=== PATIENT | female | born 1980 | race Caucasian/White ===

== ENCOUNTER 2023-05-18 07:56 | Outpatient (OUT) | payer OTHER, SELFPAY ==
--- NOTE | 2023-05-18 07:59 | MM_ITS ---
Patient: KIMBERLY MARY Exam Date: 05/18/2023 : 1980 Gender:F Ordering : DR Eric Navarrete . Admission #: [id number] Family : Non-Staff Physician Order #: [id number] CLICK HERE TO VIEW EXAM RADIOLOGY REPORT PROCEDURE: MM TOMOSYNTHESIS SCREENING BI COMPARISON: MG MAMM SCREEN 3D [place] CAD, 05/12/2022. MG MAMM SCREEN 3D [place] CAD, 05/08/2021. INDICATIONS: Screening Calculator Name NCI Breast Cancer Risk Assessment Tool 5 Year Breast Cancer Risk 0.90% Lifetime Breast Cancer Risk 13.40% Personal Breast Cancer No Personal Ovarian Cancer No Treatments None Family Cancers Uncle-maternal with colon cancer at age ~60; Aunt-maternal with breast cancer at age ~60; Mother with thyroid cancer at age 64. LOCATION: [facility] BREAST COMPOSITION: Scattered areas fibroglandular density. FINDINGS: DIAGNOSTIC CATEGORY 2--BENIGN FINDING: RIGHT BREAST: No significant suspicious finding. Scattered benign-appearing calcifications are present. No significant change has occurred. LEFT BREAST: No significant suspicious finding. Scattered benign-appearing calcifications are present. No significant change has occurred. RECOMMENDATIONS: ROUTINE MAMMOGRAM AND CLINICAL EVALUATION IN 12 MONTHS. PLEASE NOTE: A NORMAL MAMMOGRAM DOES NOT EXCLUDE THE POSSIBILITY OF BREAST CANCER. A CLINICALLY SUSPICIOUS PALPABLE LUMP SHOULD BE BIOPSIED. Dictated by: Jez Jacobson M.D. on 05/19/2023 at 13:51 Approved by: Jez Jacobson M.D. on 05/19/2023 at 13:56
== END 2023-05-18 07:57 | disposition home or self-care (01) ==
LOC: MAMMO 07:56
PROVIDERS: Visit Provider Obstetrics & Gynecology
DX: Z12.31 Encounter for screening mammogram for malignant neoplasm of breast (principal); Z80.3 Family history of malignant neoplasm of breast; Z80.0 Family history of malignant neoplasm of digestive organs; Z80.8 Family history of malignant neoplasm of other organs or systems
CPT/HCPCS: 77063; 77067

== ENCOUNTER 2023-08-08 20:29 | Outpatient (REF) | payer OTHER, SELFPAY ==
[2023-08-13 08:11] LABS: Age Gdln ACOG Testing Note (.); HPV Aptima Negative (Negative); IGP, Aptima HPV, rfx 16/18,45 Note (.)
== END 2023-08-08 20:30 | disposition home or self-care (01) ==
LOC: LAB 20:29
PROVIDERS: Visit Provider Obstetrics & Gynecology
DX: Z01.419 Encounter for gynecological examination (general) (routine) without abnormal findings (principal)
CPT/HCPCS: 87624; G0145

== ENCOUNTER 2024-05-21 09:50 | Outpatient (OUT) | payer OTHER, SELFPAY ==
--- NOTE | 2024-05-21 09:54 | MM_ITS ---
Patient Name: KIMBERLY MARY MR#: [id number] : 1980 Exam Date: 05/21/2024 Ordering Doctor: DR Eric Navarrete . RADIOLOGY REPORT PROCEDURE: MM TOMOSYNTHESIS SCREENING BI COMPARISON: MG MAMM SCREEN 3D [place] CAD, 05/12/2022. MM TOMOSYNTHESIS SCREENING BI, 05/18/2023. INDICATIONS: Screening Calculator Name NCI Breast Cancer Risk Assessment Tool 5 Year Breast Cancer Risk 1.00% Lifetime Breast Cancer Risk 13.20% Personal Breast Cancer No Personal Ovarian Cancer No Treatments None Family Cancers Uncle-maternal with colon cancer at age ~60; Aunt-maternal with breast cancer at age ~60; Mother with thyroid cancer at age 64. LOCATION: [facility] BREAST COMPOSITION: There are scattered areas of fibroglandular density. FINDINGS: DIAGNOSTIC CATEGORY 2--BENIGN FINDING. NO CHANGE FROM COMPARISON. Scattered benign-appearing lymph nodes are present. RIGHT BREAST: No significant suspicious finding. LEFT BREAST: No significant suspicious finding. RECOMMENDATIONS: ROUTINE MAMMOGRAM AND CLINICAL EVALUATION IN 12 MONTHS. PLEASE NOTE: A NORMAL MAMMOGRAM DOES NOT EXCLUDE THE POSSIBILITY OF BREAST CANCER. A CLINICALLY SUSPICIOUS PALPABLE LUMP SHOULD BE BIOPSIED. Dictated by: Daren Jean MD on 05/21/2024 at 11:53 Approved by: Daren Jean MD on 05/21/2024 at 11:54
== END 2024-05-21 09:51 | disposition home or self-care (01) ==
LOC: MAMMO 09:50
PROVIDERS: Visit Provider Obstetrics & Gynecology
DX: Z12.31 Encounter for screening mammogram for malignant neoplasm of breast (principal); Z80.3 Family history of malignant neoplasm of breast; Z80.0 Family history of malignant neoplasm of digestive organs; Z80.8 Family history of malignant neoplasm of other organs or systems
CPT/HCPCS: 77063; 77067

== ENCOUNTER 2024-08-13 22:00 | Outpatient (REF) | payer OTHER, SELFPAY ==
--- OUTSIDE RECORDS SUMMARY | 2024-08-13 22:05 | XMS_ITS | CCD ---
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 Role Phone Rober Goode Attending Provider Rober Juares Primary Care Provider ROSALBA, DR GANDHI Admitting Unavailable ROSALBA, DR GANDHI Attending Unavailable ROSALBA, DR GANDHI Consulting Unavailable REQUEST, DR FROST LISTED Primary Care Unavaila ble ZIEBER, DR JEZ Esqueda Consulting Unavailable ROSALBA, DR GADNHI Attending Unavailable ROSALBA, DR GANDHI Consulting Unavailable ROSALBA, DR GANDHI Admitting Unavailable REQUEST, NONE LISTED Primary Care Unavaila ble ROSALBA, DR GANDHI Attending Unavailable ROSALBA, DR GANDHI Admitting Unavailable REQUEST, DR FROST LISTED Primary Care Unavaila ble ZIEBER, DR JEZ Esqueda Consulting Unavailable DefRober harris MD Primary Care Provider [phone] GENARO BUI Referring Unavailable DEFRANCE, ROBER Gilman Primary Care Unavailable GENARO BUI Attending Unavailable ROBER JUARES Referring Unavailable DEFRANCE, ROBER Gilman Primary Care Unavailable GENARO BUI Referring Unavailable DEFRANCE, ROBER Gilman Primary Care Unavailable BUIGENARO Referring Unavailable DEFRANCE, ROBER Gilman Primary Care Unavailable CIRA VILLEGAS Attending Unavailable GENARO BUI Referring Unavailable DEFRANCE, ROBER Gilman Primary Care Unavailable ASHVIN SANTANA Admitting Unavailable ASHVIN SANTANA Attending Unavailable GENARO BUI Referring Unavailable DEFRANCE, ROBER Gilman Primary Care Unavailable ASHVIN SANTANA Attending Unavailable ASHVIN SANTANA Referring Unavailable DEFRANCE, ROBER Gilman Primary Care Unavailable CIRA VILLEGAS Attending Unavailable ROBER JUARES Referring Unavailable DEFRANCE, ROBER Gilman Primary Care Unavailable ASHVIN SANTANA Admitting Unavailable ASHVIN SANTANA Attending Unavailable ROBER JUARES Referring Unavailable DEFRANCE, ROBER Gilman Primary Care Unavailable ASHVIN SANTANA Attending Unavailable ASHVIN SANTANA Referring Unavailable DEFRANCE, ROBER Gilman Primary Care Unavailable NICIRA VASQUEZ Attending Unavailable DEFRANCE, ROBER T Referring Unavailable DEFRANCE, ROBER T Primary Care Unavailable NIENBERG, CIRA S Attending Unavailable NIENBERG, CIRA S Referring Unavailable DEFRANCE, ROBER T Primary Care Unavailable DEFRANCE, ROBER T Primary Care Unavailable CHERI, VEGA Cabrera Attending Unavailable CHERI, VEGA Cabrera Attending Unavailable CHERI, VEGA L Referring Unavailable DEFRANCE, ROBER T Primary Care Unavailable DEFRANCE, ROBER T Primary Care Unavailable ALEX KHAN Attending Unavailable BILL, ALEX Esqueda Attending Unavailable BILL, ALEX Esqueda Referring Unavailable DEFRANCE, ROBER T Primary Care Unavailable GENARO BUI Referring Unavailable DEFRANCE, ROBER T Primary Care Unavailable BUIGENARO Referring Unavailable DEFRANCE, ROBER T Primary Care Unavailable BUI GENARO Referring Unavailable DEFRANCE, ROBER T Primary Care Unavailable SCHRINELANTOINETTE Attending Unavailabl e DEFRANCE, ROBER Gilman Referring Unavailable DEFRANCE, ROBER Gilman Primary Care Unavailable DEFRANCE, ROBER Gilman Attending Unavailable DEFRANCE, ROBER T Referring Unavailable DEFRANCE, ROBER T Primary Care Unavailable DEFRANCE, ROBER Gilman Attending Unavailable DEFRANCE, ROBER T Referring Unavailable DEFRANCE, ROBER T Primary Care Unavailable SCHRINEANTOINETTE Cabrera Attending Unavailabl e DEFRANCE, ROBER Gilman Referring Unavailable DEFRANCE, ROBER Gilman Primary Care Unavailable DEFRANCE, ROBER Gliman Attending Unavailable DEFRANCE, ROBER Gilman Referring Unavailable DEFRANCE, ROBER T Primary Care Unavailable SCHANTOINETTE HAHN Attending Unavailabl e DEFRANCE, ROBER Gilman Referring Unavailable DEFRANCE, ROBER Gilman Primary Care Unavailable SCHANTOINETTE HAHN Referring Unavailabl e DEFRANCE, ROBER Gilman Primary Care Unavailable Defrance Rober WRAY Primary Care Provider Unavailable Unavailable Unavailable Allergies Allergy Classification Reported Allergen(s) Allergy Type Date of Onset Reaction(s) Facility (2 sources) Ciprofloxacin; Translations: [CIPROFLOXACIN] Drug Allergy 05-24-2024 [facility] (2 sources) metroNIDAZOLE; Translations: [METRONIDAZOLE] Drug Allergy 05-24-2024 [facility] Medications Current Medications Medication Drug Class(es) Dates Sig (Normalized) Sig (Original) cyclobenzaprine hydrochloride 10 mg oral tablet (4 sources) Muscle Relaxant Start: 11-09-2023 take 1 tablet by mouth every eight hours as needed cyclobenzaprine (FLEXERIL) 10 mg tablet Take 1 tablet (10 mg total) by mouth every 8 (eight) hours as needed for muscle spasms. 45 tablet 3 11/09/2023 Active esomeprazole 20 mg delayed release oral capsule (6 sources) Proton Pump Inhibitor Start: 12-02-2023 take 1 capsule by mouth in the morning, then take 1 capsule by mouth before mealtime esomeprazole (NexIUM) 20 mg capsule Indications: Gastroesophageal reflux disease without esophagitis Take 1 capsule (20 mg total) by mouth in the morning and 1 capsule (20 mg total) in the evening. Take before meals. 60 capsule 1 12/02/2023 Active Start: 08-25-2023 End: 12-02-2023 take 1 capsule by mouth in the morning, then take 1 capsule by mouth before mealtime esomeprazole (NexIUM) 40 mg capsule Indications: Gastroesophageal reflux disease without esophagitis Take 1 capsule (40 mg total) by mouth in the morning and 1 capsule (40 mg total) in the evening. Take before meals. 60 capsule 3 08/25/2023 12/02/2023 Discontinued famotidine 20 mg oral tablet (4 sources) Histamine-2 Receptor Antagonist Start: 10-29-2020 take 1 tablet by mouth twice daily famotidine (PEPCID) 20 mg tablet Take 1 tablet (20 mg total) by mouth 2 (two) times a day. 60 tablet 1 10/29/2020 Active fluticasone propionate 0.05 mg/actuat metered dose nasal spray (4 sources) Corticosteroid Start: 10-16-2019 take 1 spray(s) nasal route twice daily fluticasone propionate (FLONASE) 50 mcg/actuation nasal spray Administer 1 spray into each nostril 2 (two) times a day. 15.8 mL 5 10/16/2019 Active levonorgestrel 0.156191 mg/hr intrauterine system (5 sources) Progestin, Progestin-containing Intrauterine Device Levonorgestrel 20 MCG/DAY intrauterine device 1 each by Intrauterine route. Active levonorgestreL ( MIRENA) 20 mcg/24 hours (7 yrs) 52 mg IUD 1 each by intrauterine route once. 0 Active Problems Active Problems Problem Classification Problem Date Documented Date Episodic/Chronic Abdominal pain (3 sources) Abdominal pain; Translations: [Unspecified abdominal pain] Onset: 11-06-2023 Episodic Diverticulosis and diverticulitis (2 sources) Diverticulitis of large intestine without perforation or abscess without bleeding; Translations: [Diverticulitis of intestine, part unspecified, without perforation or abscess without bleeding] Onset: 05-14-2024 Chronic Esophageal disorders (7 sources) Gastroesophageal reflux disease without esophagitis; Translations: [Gastro-esophageal reflux disease without esophagitis] Onset: 11-11-2022 11-11-2022 Chronic Menstrual disorders (4 sources) Irregular menstruation, unspecified; Translations: [IRREGULAR MENSTRUATION UNSPECIFIED] Onset: 09-22-2022 Chronic Other acquired deformities (1 source) Scoliosis, unspecified; Translations: [Scoliosis, unspecified] Onset: 12-13-2023 Chronic Other connective tissue disease (1 source) Pain in left foot; Translations: [Pain in left foot] Onset: 05-01-2024 Episodic Other nervous system disorders (1 source) Other chronic pain; Translations: [Other chronic pain] Onset: 12-09-2023 Chronic Other non-traumatic joint disorders (1 source) Bone spur of vertebra; Translations: [Osteophyte, vertebrae] 01-09-2024 Chronic Other non-traumatic joint disorders (1 source) Osteophyte, vertebrae; Translations: [Osteophyte, vertebrae] Onset: 01-18-2024 Chronic Spondylosis; intervertebral disc disorders; other back problems (4 sources) Degeneration of thoracic intervertebral disc; Translations: [Other intervertebral disc degeneration, thoracic region] Onset: 01-18-2024 01-09-2024 Chronic Unclassified (1 source) Consult Onset: 12-13-2023 Unclassified (1 source) Earache Onset: 03-28-2024 Past or Other Problems Problem Classification Problem Date Documented Date Episodic/Chronic Immunizations and screening for infectious disease (1 source) Encounter for screening for human papillomavirus (HPV); Translations: [ENC SCREENING HUMAN PAPILLOMAVIRUS] Onset: 05-20-2022 Episodic Mood disorders (4 sources) Mood disorders Onset: 11-09-2023 11-09-2023 Other lower respiratory disease (1 source) Cough Onset: 03-28-2024 Episodic Other screening for suspected conditions (not mental disorders or infectious disease) (8 sources) Encounter for screening for malignant neoplasm of cervix; Translations: [Encounter for screening mammogram for malignant neoplasm of breast] Onset: 05-12-2022 Episodic Otitis media and related conditions (1 source) Acute serous otitis media, right ear; Translations: [Acute serous otitis media, right ear] Onset: 03-28-2024 Episodic Residual codes; unclassified (1 source) Family history of malignant neoplasm of breast; Translations: [FAMILY HX MALIG NEOPLASM OF BREAST] Onset: 05-16-2022 Episodic Residual codes; unclassified (1 source) Family history of malignant neoplasm of digestive organs; Translations: [FAM HX MALABIGAIL NEOPLASM DIGESTIV ORGN] Onset: 05-16-2022 Episodic Residual codes; unclassified (1 source) Family history of malignant neoplasm of other organs or systems; Translations: [FAM HX MALABIGAIL NEOPLASM OTH ORGN/SYS] Onset: 05-16-2022 Episodic Spondylosis; intervertebral disc disorders; other back problems (13 sources) Thoracic back pain; Translations: [Pain in thoracic spine] Onset: 11-09-2023 11-09-2023 Episodic Unclassified (4 sources) Onset: 02-06-2019 02-06-2019 Results Test Name Value Interpretation Reference Range Facil ity MAGNESIUMon 06-27-2024 Magnesium [Mass/Vol] 1.9 mg/dL Normal 1.8-2.6 [facility] Comment on above: Performed By: #### 1 9123-9, 9, 66881-6 #### [facility] ([id number]) [address], [address] [place] [address] VITAMIN B12on 06-27-2024 Cobalamin (Vitamin B12) [Mass/Vol] 292 pg/mL Normal 180-914 [facility] Comment on above: Performed By: #### 1 9123-9, 9, 38536-4 #### [facility] ([id number]) [address], [address] [place] [address] Vitamin D+Metabolites [Mass/ Vol]on 06-27-2024 VITAMIN D 25 HYD TOT 25.1 ng/mL Low 30-100 [facility] Comment on above: Result Comment: Vitamin D status 25 [place] Vitamin D Deficiency <20 ng/mL Insufficiency 20-29 ng/mL Sufficiency 30-100 ng/mL Toxicity >100 ng/mL NOTE: A pediatric reference range has not been established by the mixed animal veterinarian of this kit. The [place] [employer] recommends a Vitamin D level of = or >20ng/mL in infants and children. Performed By: #### 1 9123-9, 2132-9, 41595-0 #### [facility] ([id number]) [address] [place] [address], [address] [place] [address] BASIC METABOLIC PANLon 05-14 Anion gap [Moles/Vol] 6 mmol/L Normal 5-15 [facility] Comment on above: Performed By: #### C LISA, BMP #### ([id number]) [address] [place] [address]77 Calcium [Mass/Vol] 8.6 mg/dL Normal 8.5-10.5 [facility] Comment on above: Performed By: #### C LISA, BMP #### ([id number]) [address] [place] [address] 09928 Chloride [Moles/Vol] 102 mmol/L Normal 98-109 [facility] Comment on above: Performed By: #### C LISA, BMP #### ([id number]) [address] [place] [address] 91713 CO2 [Moles/Vol] 25 mmol/L Normal 22-32 [facility] Comment on above: Performed By: #### C BCA, BMP #### ([id number]) [address] [place] [address] 53675 Creatinine [Mass/Vol] 0.65 mg/dL Normal 0.40-1.00 [facility] Comment on above: Result Comment: METH OD TRACEABLE TO IDMS STANDARD Performed By: #### C BCA, BMP #### ([id number]) [address] [place] [address]26 eGFR (CKD-EPI) NON-RACE DEPENDENT >90 Normal >59 [facility] Comment on above: Result Comment: Reported eGFR is based on the CKD-EPI 2020 equation that does not use a race coefficient. Performed By: #### C LISA, BMP #### ([id number]) [address] [place] [address]1549 Glucose [Mass/Vol] 74 mg/dL Normal 65-99 [facility] Comment on above: Performed By: #### C LISA, BMP #### ([id number]) [address] [place] [address] 80167 Potassium [Moles/Vol] 3.4 mmol/L Low 3.5-5.0 [facility] Comment on above: Performed By: #### C LISA, BMP #### ([id number]) [address] [place] [address] 27037 Sodium [Moles/Vol] 133 mmol/L Low 134-146 [facility] Comment on above: Performed By: #### C LISA, BMP #### ([id number]) [address] [place] [address] 52064 Urea nitrogen [Mass/Vol] 10 mg/dL Normal 5-23 [facility] Comment on above: Performed By: #### C LISA, BMP #### ([id number]) [address] [place] [address] 88391 CBC AND AUTO DIFFon 05-14-20 24 ABSOLUTE BASOPHIL 0.1 X10E9/L Normal 0.0-0.2 [facility] Comment on above: Performed By: #### C BCA, BMP #### ([id number]) [address] [place] [address] 15300 ABSOLUTE NEUTROPHIL 10.2 X10E9/L High 1.5-6.6 [facility] Comment on above: Performed By: #### C BCA, BMP #### ([id number]) [address] [place] [address] 57188 Basophils/100 WBC (Bld) 0.5 % Normal [facility] Comment on above: Performed By: #### C BCA, BMP #### ([id number]) [address] [place] [address] 82934 Eosinophils (Bld) [#/Vol] 0.1 10*3/uL Normal 0.0-0.4 [facility] Comment on above: Performed By: #### C BCA, BMP #### ([id number]) [address] [place] [address] 03947 Eosinophils/100 WBC (Bld) 0.6 % Normal [facility] Comment on above: Performed By: #### C BCA, BMP #### ([id number]) [address] [place] [address] [place] [address] Erythrocyte distribution width (RBC) [Ratio] 13.3 % Normal 11.5-15.0 [facility] Comment on above: Performed By: #### C BCA, BMP #### ([id number]) [address] [place] [address] 54132 Hematocrit (Bld) [Volume fraction] 40.2 % Normal 35-47 [facility] Comment on above: Performed By: #### C BCA, BMP #### ([id number]) [address] [place] [address] 62518 Hemoglobin (Bld) [Mass/Vol] 13.2 g/dL Normal 11.7-15.5 [facility] Comment on above: Performed By: #### C BCA, BMP #### ([id number]) [address] [place] [address] 12452 Lymphocytes (Bld) [#/Vol] 1.3 10*3/uL Normal 1.0-3.5 [facility] Comment on above: Performed By: #### C LISA, BMP #### ([id number]) [address] [place] [address] 40638 Lymphocytes/100 WBC (Bld) 10.6 % Normal [facility] Comment on above: Performed By: #### C LISA, BMP #### ([id number]) [address] [place] [address] 38769 MCH (RBC) [Entitic mass] 30.0 pg Normal 27-34 [facility] Comment on above: Performed By: #### C LISA, BMP #### ([id number]) [address] [place] [address] 43764 MCHC (RBC) [Mass/Vol] 32.9 g/dL Normal 32-36 [facility] Comment on above: Performed By: #### C LISA, BMP #### ([id number]) [address] [place] [address] 02980 MCV (RBC) [Entitic vol] 91 fL Normal 80-100 [facility] Comment on above: Performed By: #### C LISA, BMP #### ([id number]) [address] [place] [address] 99925 Monocytes (Bld) [#/Vol] 1.0 10*3/uL High 0-0.9 [facility] Comment on above: Performed By: #### C LISA, BMP #### ([id number]) [address] [place] [address] 66340 Monocytes/100 WBC (Bld) 7.8 % Normal [facility] Comment on above: Performed By: #### C LISA, BMP #### ([id number]) [address] [place] [address] 77163 Neutrophils/100 WBC (Bld) 80.5 % Normal [facility] Comment on above: Performed By: #### Khadijah GONZALEZ, BMP #### ([id number]) [address] [place] [address] 14858 Platelet mean volume (Bld) [Entitic vol] 9.1 fL Normal 7-12 [facility] Comment on above: Performed By: #### Khadijah GONZALEZ, BMP #### ([id number]) [address] [place] [address] 35901 Platelets (Bld) [#/Vol] 278 10*3/uL Normal 150-450 [facility] Comment on above: Performed By: #### Khadijah GONZALEZ, BMP #### ([id number]) [address] [place] [address] 85365 RBC COUNT 4.40 X10E12/L Normal 3.80-5.20 [facility] Comment on above: Performed By: #### Khadijah GONZALEZ, BMP #### ([id number]) [address] [place] [address] 07060 WBC (Bld) [#/Vol] 12.7 10*3/uL High 4.0-11.0 [facility] Comment on above: Performed By: #### Khadijah GONZALEZ, BMP #### ([id number]) [address] [place] [address] ABDOMEN AND PELVIS W CONT on 05-14-2024 CT ABDOMEN AND PELVIS W CONT CT ABDOMEN AND PELVIS W CONT CLINICAL HISTORY: . RLQ abdominal pain; and right inguinal pain. ovaria, vs stone vs appy TECHNIQUE/PROCEDURE: CT abdomen and pelvis with intravenous contrast. All CT scans at this facility use dose modulation, iterative reconstruction, and/or weight based dosing when appropriate to reduce radiation dose to as low as reasonably achievable COMPARISON: 11/06/2023 FINDINGS: Lung bases clear. Heart size normal. No pericardial effusion. Normal hepatic morphology. No focal intrahepatic lesions. Gallbladder present. No biliary dilatation or portal vein thrombosis. The pancreas and spleen are within normal limits. The adrenal glands and kidneys are normal. No urinary tract calculi or dilatation. Urinary bladder unremarkable. IUD is present within the uterus. Ovaries are normal size with bilateral follicles. Abdominal aorta nonaneurysmal. IVC right-sided. No enlarged abdominal or pelvic lymph nodes. Small volume of free fluid in the pelvis. No free air. Bowel wall thickening is queried in the sigmoid colon. Mesenteric inflammation is also queried. Scattered sigmoid diverticula. Appendix normal. Osseous structures are age compatible. No aggressive osseous lesions or fractures. IMPRESSION: * Constellation of imaging findings most suggestive of sigmoid diverticulitis. No free air or abscess at this time. Small volume of free fluid in the cul-de-sac. * The appendix is normal. No urinary tract calculi or dilatation. Normal sized ovaries with IUD present within the uterus. Finalized by Milad Carrillo MD on 05/14/2024 9:45 AM Normal [facility] HCG ( test) Ql (U)o n 05-14-2024 Beta HCG ( test) Ql (U) Negative Normal [facility] Comment on above: Performed By: #### 2 106-3 #### ([id number]) [address] [place] [address] 92705 URN MACROSCOPIC NURon 2023 BILIRUBIN JOAN Negative Normal [facility] Comment on above: Performed By: #### 2 106-3 #### ([id number]) [address] [place] [address] 07030 BLOOD/HGB JOAN Trace Abnormal [facility] Comment on above: Performed By: #### 2 106-3 #### ([id number]) [address] [place] [address] 31545 GLUCOSE JOAN Negative Normal [facility] Comment on above: Performed By: #### 2 106-3 #### ([id number]) [address] [place] [address] 76114 KETONES JOAN Negative Normal [facility] Comment on above: Performed By: #### 2 106-3 #### ([id number]) [address] [place] [address] 37958 LEUKOCYTE ESTERASE JOAN Negative Normal [facility] Comment on above: Performed By: #### 2 106-3 #### ([id number]) [address] [place] [address] 76858 NITRITE JOAN Negative Normal [facility] Comment on above: Performed By: #### 2 106-3 #### ([id number]) [address] [place] [address] 43922 PH JOAN 7.0 Normal 5.0-8.5 [facility] Comment on above: Performed By: #### 2 106-3 #### ([id number]) [address] [place] [address] 34592 PROTEIN JOAN Negative Normal [facility] Comment on above: Performed By: #### 2 106-3 #### ([id number]) [address] [place] [address] 29439 SPECIFIC GRAVITY JOAN 1.010 Normal 1.003-1.035 [facility] Comment on above: Performed By: #### 2 106-3 #### ([id number]) [address] [place] [address] 05691 UROBILINOGEN JOAN 0.2 eu/dL Normal <1.1 [facility] Comment on above: Performed By: #### 2 106-3 #### ([id number]) [address] [place] [address] 12296 XR FOOT LT MIN 3 VWSon 05-02 XR FOOT LT MIN 3 VWS XR FOOT LT MIN 3 VWS XR FOOT LT MIN 3 VWS HISTORY: Foot pain COMPARISON: None FINDINGS: AP, lateral, oblique views obtained. No acute fracture or dislocation. Well-corticated osseous fragment posterior to the tibia seen on lateral image may represent sequelae of remote fracture. There is no destructive osseous lesion. Second tarsometatarsal joint space narrowing with subchondral sclerosis and tiny osteophyte. Plantar calcaneal spurring. Accessory navicular bone. Bipartite medial sesamoid bone. IMPRESSION: * No acute osseous abnormality. * Second tarsometatarsal joint osteoarthritis. * Chronic findings, as detailed. Approved by Resident: Ian Butt DO on 05/02/2024 2:15 PM I, Anuj Ballard MD have personally reviewed the image(s) and agree with and/or edited the report Finalized by Anuj Ballard MD on 05/02/2024 3:32 PM [facility] MR LUMBAR SPINE WO CONTon MR LUMBAR SPINE WO CONT MR LUMBAR SPINE WO CONT STUDY: MR LUMBAR SPINE WO CONT HISTORY: Chronic right-sided low back pain with right-sided sciatica; Lumbar radiculopathy, chronic TECHNIQUE: * Routine multiplanar multisequence MR imaging of the lumbar spine was performed without intravenous contrast. FINDINGS: Vertebral body heights and alignment are maintained. Mild multilevel vertebral disc space narrowing and mild degenerative endplate changes. No suspicious marrow signal changes. Conus medullaris terminates at the level of L1. No distal cord signal abnormality. Cauda equina nerve roots are broadly unremarkable. L1-L2: Trace disc bulge without significant spinal canal or neuroforaminal narrowing. L2-L3: Mild diffuse disc bulge and minimal facet arthropathy without significant spinal canal or neuroforaminal narrowing. L3-L4: Mild diffuse disc bulge and [id number]-[id number]-[id number] facet arthropathy results in mild left neuroforaminal narrowing. No significant spinal canal narrowing. L4-L5: Mild diffuse disc bulge, moderate facet arthropathy results in minimal bilateral neuroforaminal narrowing. No significant spinal canal narrowing. L5-S1: Mild bilateral facet arthropathy without significant spinal canal narrowing. Minimal left neuroforaminal narrowing. IMPRESSION: * Mild multilevel intervertebral disc space narrowing and discogenic changes with mild degenerative endplate changes. No high-grade spinal canal or neuroforaminal narrowing. Finalized by Eddi Levi on 01/22/2024 4:24 PM [facility] MR THORACIC SPINE WO CONTon 01-22-2024 MR THORACIC SPINE WO CONT MR THORACIC SPINE WO CONT STUDY: MR THORACIC SPINE WO CONT HISTORY: DDD (degenerative disc disease), thoracic; Osteophyte of vertebrae TECHNIQUE: * Routine multiplanar multisequence MR imaging of the thoracic spine was performed without intravenous contrast. FINDINGS: Vertebral body heights and alignment are maintained. There is mild straightening of the mid thoracic spine at T6-T10. Mild multilevel intervertebral disc space narrowing, a few scattered disc protrusions without high-grade spinal canal narrowing. No significant thoracic cord signal abnormality. Scattered xcda-ey-jzymtizf neuroforaminal narrowing for example at T8-T9 and to a lesser extent T7-T8. No suspicious bone marrow signal changes. Visualized paraspinal musculature appears unremarkable by technique. IMPRESSION: * [id number]-un-guurmnll degenerative spondylotic changes without significant spinal canal narrowing. * Mild to moderate multilevel narrowing at T8-T9 and to a lesser extent T7-T8. Finalized by Eddi Levi on 01/22/2024 3:53 PM [facility] XR SPINE THORACIC 3 VWSon XR SPINE THORACIC 3 VWS XR SPINE THORACIC 3 VWS CLINICAL INFORMATION: Thoracic back pain, unspecified back pain laterality, unspecified chronicity TECHNIQUE: XR SPINE THORACIC 3 VWS 3 views of the thoracic spine were obtained. There is no thoracic malalignment or compression. Endplates appear intact. No fracture. IMPRESSION: No acute findings. Finalized by Jono Miranda MD on 11/10/2023 7:47 PM Normal [facility] CT ABDOMEN AND PELVIS WO CON Ton 11-06-2023 CT ABDOMEN AND PELVIS WO CONT CT ABDOMEN AND PELVIS WO CONT CLINICAL INFORMATION: Abdominal/flank pain, stone suspected. TECHNIQUE: CT Abdomen and Pelvis without intravenous contrast. All CT scans at this facility use dose modulation, iterative reconstruction, and/or weight based dosing when appropriate to reduce radiation dose to as low as reasonably achievable. COMPARISON: CT abdomen pelvis 08/11/2009 FINDINGS: Lung bases are unremarkable. Visceral organs are grossly unremarkable given lack of IV dye. Both kidneys are of adequate and similar size and texture with no hydronephrosis or dense renal stones. Urinary bladder is decompressed. IUD is in satisfactory position at the joint fundus. Uterus is otherwise grossly unremarkable. There is 2.8 cm right pelvic cyst likely ovarian cyst likely within physiologic range for patient's age group. Appendix, small bowel and large bowel loops are unremarkable. There is no free peritoneal air or fluid. There are few scattered diverticuli of the large bowel. There are few nonspecific mesenteric root lymph nodes none of which is grossly pathological by radiographic criteria. Osseous exam is unremarkable IMPRESSION: * Exam is unremarkable with no hydronephrosis or dense renal stones. * There is 2.8 cm right pelvic cyst likely ovarian cyst likely within physiologic range for patient's age group. * There are few scattered diverticuli throughout large bowel is no gross diverticulitis. Appendix is unremarkable. Finalized by Flavio Busch MD on 11/06/2023 4:53 PM Normal [facility] HCG ( test) Ql (U)o n 11-06-2023 Beta HCG ( test) Ql (U) Negative Normal [facility] Comment on above: Performed By: #### 2 106-3 #### ([id number]) [address] [place] [address] 22307 URN MACROSCOPIC NURon 2023 BILIRUBIN JOAN Negative Normal [facility] Comment on above: Performed By: #### N UM #### ([id number]) [address] [place] [address] 23701 BLOOD/HGB JOAN Trace Abnormal [facility] Comment on above: Performed By: #### N UM #### ([id number]) [address] [place] [address] 29354 GLUCOSE JOAN Negative Normal [facility] Comment on above: Performed By: #### N UM #### ([id number]) [address] [place] [address] 43704 KETONES JOAN Negative Normal [facility] Comment on above: Performed By: #### N UM #### ([id number]) [address] [place] [address] 67821 LEUKOCYTE ESTERASE JOAN Negative Normal [facility] Comment on above: Performed By: #### N UM #### ([id number]) [address] [place] [address] 44817 NITRITE JOAN Negative Normal [facility] Comment on above: Performed By: #### N UM #### ([id number]) [address] [place] [address] 69805 PH JOAN 6.5 Normal 5.0-8.5 [facility] Comment on above: Performed By: #### N UM #### ([id number]) [address] [place] [address] 38155 PROTEIN JOAN Negative Normal [facility] Comment on above: Performed By: #### N UM #### ([id number]) [address] [place] [address] 26076 SPECIFIC GRAVITY JOAN 1.020 Normal 1.003-1.035 [facility] Comment on above: Performed By: #### N UM #### ([id number]) [address] [place] [address] 17928 UROBILINOGEN JOAN 0.2 eu/dL Normal <1.1 [facility] Comment on above: Performed By: #### N UM #### ([id number]) [address] [place] [address] 50603 US PELVIS AND TRANSVAGon US PELVIS AND TRANSVAG EXAMINATION: US PELVIS AND TRANSVAG HISTORY: Irregular periods ; check IUD placement COMPARISON: No relevant comparison available. TECHNIQUE: Transabdominal and transvaginal sonographic examination. FINDINGS: UTERUS: IUD within endometrial cavity. Uterus size: 7.0 x 3.2 x 4.4 cm ENDOMETRIUM: Normal homogeneous appearance. Endometrial thickness: 3 mm RIGHT OVARY: Contains numerous tiny calcifications. Duplex Doppler demonstrates normal waveform and flow; resistive index 0.5. Ovary size: 2.5 x 2.8 x 1.6 cm LEFT OVARY: Normal size and appearance. Duplex Doppler demonstrates normal waveform and flow; resistive index 0.5. Ovary size: 3.0 x 1.6 x 1.8 cm CUL-DE-SAC: Unremarkable. No significant free fluid. BLADDER: Unremarkable. OTHER: None. IMPRESSION: 1. IUD appears appropriately positioned within endometrial cavity. 2. Multiple tiny calcifications within right ovary; nonspecific. Otherwise no mass or abnormal appearance to suggest ovarian dermoid. Electronically authenticated by: JEZ JACOBSON Date: 2022-09-22 23:44 Normal [facility] PAP ACOG PANEL 2: 30 to 65on 05-24-2022 . . Normal [facility] Comment on above: Result Comment: Perf ormed at: WB Performed By: #### [id number] #### [facility] [address] [address] [address] Dali Lamar Age Gdln ACOG Testing 30-65 Normal [facility] Comment on above: Performed By: #### [id number] #### [facility] [address] [address] [address] Dali Lamar DIAGNOSIS: Comment Normal [facility] Comment on above: Result Comment: NEGA TIVE FOR INTRAEPITHELIAL LESION OR MALIGNANCY. Performed at: WB Performed By: #### [id number] #### [facility] [address] [address] [address] Dali Lamar HPV Aptima Negative Normal Negative [facility] Comment on above: Result Comment: This nucleic acid amplification test detects fourteen high-risk HPV types (16,18,31,33,35,39,45,51,52,56,58,59,66,68) without differentiation. Performed at: =G Performed By: #### [id number] #### [facility] [address] [address] [address] Dali Lamar Methodology: Comment Normal [facility] Comment on above: Result Comment: This liquid based ThinPrep(R) pap test was screened with the use of an image guided system. Performed at: WB Performed By: #### [id number] #### [facility] [address] [address] [address] Dali Lamar Note: Comment Normal [facility] Comment on above: Result Comment: The Pap smear is a screening test designed to aid in the detection of premalignant and malignant conditions of the uterine cervix. It is not a diagnostic procedure and should not be used as the sole means of detecting cervical cancer. Both false-positive and false-negative reports do occur. . Performed at: WB Performed By: #### 4 [id number] #### [facility] [address] [address] [address] Dali Lamar Performed by: Comment Normal [facility] Comment on above: Result Comment: Mark Ambriz, Beater Operator (ASCP) Performed at: WB Performed By: #### [id number] #### [facility] [address] [place] [address] Dr. Dali Lamar Specimen adequacy: Comment Normal [facility] Comment on above: Result Comment: Sati sfactory for evaluation. Endocervical and/or squamous metaplastic cells (endocervical component) are present. Performed at: WB Performed By: #### [id number] #### [facility] [address] [place] [address] Dr. Dali Lamar MG MAMM SCREEN 3D SHAHIDA CADon 05-12-2022 MG MAMM SCREEN 3D SHAHIDA CAD Patient: VERONICA MARY Exam Date: 05/12/2022 : 1980 Gender:F Ordering : DR HIRAM NAVARRETE . Admission #: [id number] Family : Order #: [id number] CLICK HERE TO VIEW EXAM RADIOLOGY REPORT PROCEDURE: MAMMOGRAM SCREENING 3D BILATERAL CAD COMPARISON: MG MAMM SCREEN 3D SHAHIDA CAD, 05/08/2021. INDICATIONS: Screening mammography Calculator Name NCI Breast Cancer Risk Assessment Tool 5 Year Breast Cancer Risk 0.80% Lifetime Breast Cancer Risk 13.50% Personal Breast Cancer No Personal Ovarian Cancer No Treatments None Family Cancers Uncle-maternal with colon cancer at age 60; Aunt-maternal with breast cancer at age 60; Mother with thyroid cancer at age 64. LOCATION: [facility] BREAST COMPOSITION: Scattered areas fibroglandular density. FINDINGS: DIAGNOSTIC CATEGORY 2--BENIGN FINDING: RIGHT BREAST: No significant suspicious finding. Scattered benign-appearing calcifications are present. No significant change has occurred. LEFT BREAST: No significant suspicious finding. Scattered benign-appearing calcifications are present. No significant change has occurred. RECOMMENDATIONS: ROUTINE MAMMOGRAM AND CLINICAL EVALUATION IN 12 MONTHS. PLEASE NOTE: A NORMAL MAMMOGRAM DOES NOT EXCLUDE THE POSSIBILITY OF BREAST CANCER. A CLINICALLY SUSPICIOUS PALPABLE LUMP SHOULD BE BIOPSIED. Dictated by: Jez Jacobson M.D. on 05/12/2022 at 13:21 Approved by: Jez Jacobson M.D. on 05/12/2022 at 13:22 Normal [facility] HCG,Urineon 01-23-2021 Beta HCG ( test) Ql (U) Negative Normal [facility] Comment on above: Result Comment: PERF ORMED BY: [place] [address] PATHOLOGIST ASSISTANT CONTROLLER CLARICE FLORES M.D. Performed By: #### U HCG #### [address] 01-23-2021 L -- ---- Specimen: [id number] Received: 01/23/21 Status: JEREL Ledesma Num: [id number] Spec Type: Surgical Subm Dr: Rober Goode Jr, DO Tissues: A Colon Biopsy (COLON BX) Procedures: HE Stain/2, Gross/Micro L4 ---- Patient Age/Sex Location Account Attending Physician ---- Veronica Mary 40/F [id number] Rober Goode Jr, DO ---- SPEC NUM: [id number] RECD: 01/23/21 STATUS: JEREL LEDESMA NUM: [id number] MAIDA: 01/23/21 [facility] DR: Rober Goode Jr, DO ENTERED: 01/23/[address]: JEANNIE TYPE: Surgical DEPT: S ORDERED: HE Stain/2, Gross/Micro L4 ORDERED: HE Stain/2, Gross/Micro L4 Pathological Diagnosis Colon, biopsy: - Colonic mucosa with lymphoid aggregates. - No evidence of microscopic colitis identified. Clinical Information Diarrhea Gross Description Received in formalin labeled with the patient's name, number and colon biopsy are 2 suarez tissue fragments, 0.2 cm and 0.4 cm. Entirely submitted in one cassette labeled A1. (SM/YJ) Microscopic Description Two glass slides with H E stained material have been examined. The microscopic findings support the above pathologic diagnosis. CPT Codes 53635 ---- ---- Specimen: [id number] Received: 01/23/21 Status: JEREL Ledesma Num: [id number] Spec Type: Surgical Subm Dr: Rober Goode Jr, DO Tissues: A Colon Biopsy (COLON BX) Procedures: HE Stain/2, Gross/Micro L4 ---- Patient: Veronica Mary [id number] (Continued) ---- Signed (signature on file) Mayo Palafox MD 01/26/21 1540 Normal [facility] COVID[facility]19 [facility] SARS-CoV-2 (COVID-19) RNA CHARLY+probe Ql (Unsp spec) Negative Normal Negative [facility] Comment on above: Order Comment: Healt hcare Worker?: N Result Comment: Winnie brambila: Negative Testing for SARS-CoV-2 by RT-PCR This test was developed and its performance characteristics determined by [employer] ([place]) and validated at the [facility]. This test has not been FDA cleared or approved. This test has been authorized by FDA under an Emergency Use Authorization (EUA). This test has been validated in accordance with the FDA's Guidance Document (Policy for Diagnostics Testing in Laboratories Certified to Perform High Complexity Testing under CLIA prior to Emergency Use Authorization for Coronavirus Disease-2019 during the Public Health Emergency) issued on January 10, 2020. This test is only authorized for the duration of time the declaration that circumstances exist justifying the authorization of the emergency use of in vitro diagnostic tests for detection of SARS-CoV-2 virus and/or diagnosis of COVID-19 infection under section 564(b)(1) of the Act, 21 U.S.C. 360bbb-3(b)(1), unless the authorization is terminated or revoked sooner. PERFORMED BY: [place] [address] PATHOLOGIST ASSISTANT CONTROLLER CLARICE FLORES M.D. Performed By: #### C OVID-19 [facility] #### [address] COVID-19 Positive/Negativeon 01-21-2021 COVID-19 Positive/Negative Negative Negative [facility] Comment on above: Reference: NegativeT esting for SARS-CoV-2 by RT-PCRThis test was developed and its performance characteristics determined by [employer]) and validated at the [facility]. This test has not been FDA cleared or approved. This test has been authorized by FDA under an Emergency Use Authorization (EUA). This test has been validated in accordance with the FDA's Guidance Document (Policy for Diagnostics Testing in Laboratories Certified to Perform High Complexity Testing under CLIA prior to Emergency Use Authorization for Coronavirus Disease-2019 during the Public Health Emergency) issued on January 10, 2020. This test is only authorized for the duration of time the declaration that circumstances exist justifying the authorization of the emergency use of in vitro diagnostic tests for detection of SARS-CoV-2 virus and/or diagnosis of COVID-19 infection under section 564(b)(1) of the Act, 21 U.S.C. 360bbb-3(b)(1), unless the authorization is terminated or revoked sooner. Otheron 01-21-2021 Coronavirus 2018 PCR Interp N/A [facility] Vital Signs Date Time Vital Sign Value Performing Clinician Viktoria salazar 01-09-2024 08:56-0400 Body height 160 cm Genaro Bui LOSS PREVENTION LEAD-SOLE LEVELER MACHINE [facility] Phone[facility] 01-09-2024 08:56-0400 Body mass index (BMI) [Ratio] 35.25 kg/m2 Genaro Bui LOSS PREVENTION LEAD-SOLE LEVELER MACHINE Work Phone: [facility] 01-09-2024 08:56-0400 Body weight 90.27 kg Genaro Bui LOSS PREVENTION LEAD-SOLE LEVELER MACHINE [facility] 01-09-2024 08:56-0400 Diastolic blood pressure 89 mm[Hg] Genaro Bui LOSS PREVENTION LEAD-SOLE LEVELER MACHINE Work Phone: [facility] 01-09-2024 08:56-0400 Heart rate 84 /min Genaro Bui LOSS PREVENTION LEAD-SOLE LEVELER MACHINE Work Phone: [facility] 01-09-2024 08:56-0400 Systolic blood pressure 125 mm[Hg] Genaro Bui LOSS PREVENTION LEAD-SOLE LEVELER MACHINE Work Phone: [facility] 12-02-2023 10:41-0500 Body height 160 cm Antoinette Pruittl PA-C Work Phone: [facility] 12-02-2023 10:41-0500 Body mass index (BMI) [Ratio] 35.25 kg/m2 Antoinette Schrinel PA-C Work Phone: [facility] 12-02-2023 10:41-0500 Body weight 90.27 kg Antoinette Schrinel PA-C Work Phone: [facility] 12-02-2023 10:41-0500 Diastolic blood pressure 74 mm[Hg] Antoinette Hilariorinel PA-C Work Phone: [facility] [employer] [facility] 12-02-2023 10:41-0500 Systolic blood pressure 126 mm[Hg] Antoinette Vega PA-C Work Phone: [facility] Encounters Encounter Date Encounter Type Care Provider Facility Start: 08-13-2024 End: 08-13-2024 Bamboo flowsheet Hiram Rosalba DO Work Phone: [facility] Start: 08-13-2024 End: 08-13-2024 Bamboo flowsheet Hiram Rosalba DO Work Phone: [facility] Start: 06-27-2024 End: 06-27-2024 ambulatory ANTOINETTE N [facility] Start: 06-27-2024 End: 06-27-2024 ambulatory [facility] Start: 05-24-2024 End: 05-24-2024 ambulatory [facility] Start: 05-14-2024 End: 05-15-2024 [facility] Start: 05-01-2024 End: 05-01-2024 ambulatory [facility] Start: 04-06-2024 End: 04-06-2024 ambulatory [facility] Start: 03-28-2024 End: 03-28-2024 ambulatory [facility] Start: 03-15-2024 End: 03-15-2024 ambulatory [facility] Start: 02-24-2024 End: 02-24-2024 ambulatory [facility] Start: 02-07-2024 End: 02-07-2024 ambulatory [facility] Start: 02-03-2024 End: 02-03-2024 ambulatory [facility] Start: 01-18-2024 End: 01-18-2024 ambulatory [facility] Start: 01-09-2024 End: 02-08-2024 ambulatory [facility] Start: 01-09-2024 End: 01-09-2024 Office outpatient visit 25 minutes Genaro Bui LOSS PREVENTION LEAD-SOLE LEVELER MACHINE Work Phone: [facility] Comment on above: DDD (degenerative di sc disease), thoracic (Primary Dx); Osteophyte of vertebrae; Chronic right-sided low back pain with right-sided sciatica; Lumbar radiculopathy, chronic Start: 12-13-2023 ambulatory [facility] Start: 12-09-2023 End: 01-09-2024 ambulatory [facility] Start: 12-02-2023 End: 12-02-2023 Office outpatient visit 25 minutes Antoinette Vega PA-C Work Phone: [facility] Comment on above: Gastroesophageal ref lux disease without esophagitis (Primary Dx) Start: 12-02-2023 End: 12-02-2023 [facility] Start: 11-15-2023 Telephone encounter Sangeetha Geiger [facility] Start: 11-14-2023 End: 12-09-2023 ambulatory [facility] Start: 11-14-2023 End: 11-14-2023 [facility] Start: 11-10-2023 End: 11-10-2023 ambulatory [facility] Start: 11-09-2023 End: 11-09-2023 Orders Only Chana Joy [facility] Comment on above: Thoracic back pain, unspecified back pain laterality, unspecified chronicity (Primary Dx) Start: 11-06-2023 End: 11-07-2023 Emergency department patient visit [facility] Start: 09-22-2022 End: 09-23-[address] HIRAM NAVARRETE Facility:[facility] Start: 05-19-2022 End: 05-19-[address] HIARM NAVARRETE Facility:[facility] Start: 05-12-2022 End: 05-13-[address] HIRAM NAVARRETE Facility:[facility] Start: 01-21-2021 End: 01-21-2021 Patient encounter procedure Rober Goode -Pre-Surgica l Testing Procedures Date Procedure Procedure Detail Performing Clinician Start: 05-21-2024 Mammography Hiram kumar DO Work Phone: Start: 02-03-2024 Follow-up visit Follow-up ELIESER VEGA Start: 11-09-2023 Adult depression scr eening assessment Chana Joy Plan of Treatment Date Care Activity Detail Author Start: 05-21-2025 Screening for malign ant neoplasm of breast Mammogram [facility] Start: 01-08-2025 Adult BMI Screening Adult BMI Screen ing [facility] Start: 01-08-2025 Tobacco Screening Tobacco Screening [facility] Start: 12-02-2024 Adult BMI Screening Adult BMI Screen ing [facility] Start: 12-02-2024 Tobacco Screening Tobacco Screening [facility] Start: 11-14-2024 Adult BMI Screening Adult BMI Screen ing [facility] Start: 11-14-2024 Tobacco Screening Tobacco Screening [facility] Start: 11-09-2024 Adult BMI Screening Adult BMI Screen ing [facility] Start: 11-09-2024 Depression Screening Depression Scre ening [facility] Start: 11-09-2024 Tobacco Screening Tobacco Screening [facility] Start: 08-13-2024 End: 08-13-2024 Patient encounter procedure 08/13/2024 10:00 AM EST Office Visit [facility] [address] [place] [address] Hiram Navarrete, DO [address] [place] [address] Arrived [facility] Comment on above: Arrived Start: 06-10-2024 Influenza vaccination P [facility] Start: 02-03-2024 End: 02-03-2024 Patient encounter procedure 02/03/2024 9:30 AM EDT Office Visit [address] [place] [address] Antoinette Vega PA-C [address] [facility] [address] [place] [address] Duyen Ortega [facility] Start: 01-18-2024 End: 01-18-2024 Patient encounter procedure [facility] Start: 01-12-2024 End: 01-12-2024 Patient encounter procedure 01/12/2024 8:00 AM EDT Appointment [facility] [address] [place] [address] Arrived [facility] Comment on above: Arrived Start: 12-02-2023 End: 12-02-2023 Patient encounter procedure 12/02/2023 11:00 AM EST Office Visit [facility] [address] [facility] [address] [place] [address] Antoinette Vega PA-C [address] [facility] [address] [place] [address] Duyen Ortega [facility] Start: 11-23-2023 End: 11-23-2023 Patient encounter procedure 11/23/2023 4:30 PM EST Appointment [facility] [address] [place] [address] Chronic right-sided low back pain with right-sided sciatica; Mid back pain on right side [facility] Comment on above: Chronic right-sided low back pain with right-sided sciatica; Mid back pain on right side Start: 11-14-2023 End: 11-14-2023 Patient encounter procedure 11/14/2023 10:30 AM EST Office Visit [facility] [address] [place] [address] Genaro Bui, LOSS PREVENTION LEAD-SOLE LEVELER MACHINE [address] [address] [facility] Start: 11-09-2023 End: 11-09-2024 XR Thoracic spine 3 Views X-ray spine thoracic 3 views Imaging Routine Thoracic back pain, unspecified back pain laterality, unspecified chronicity Expected: 11/09/2023, Expires: 11/09/2024 [facility] Work Phone: Comment on above: Expected: 11/09/2023 , Expires: 11/09/2024 Start: 06-10-2023 COVID-19 Vaccine () COVID-19 Vaccine () [facility] Start: 09-24-2022 DTaP,Tdap and Td Vaccines (2 - Td or Tdap) DTaP,Tdap and Td Vaccines (2 - Td or Tdap) [facility] Start: 2010 Screening for malign ant neoplasm of cervix [facility] Start: 2001 Screening for malign ant neoplasm of cervix Pap Smear [facility] Start: 1998 Adult BMI Follow Up Plan Adult BMI Follow Up Plan [facility] End: 01-08-2025 MR Lumbar spine WO contrast MR lumbar spine without contrast Imaging Routine Chronic right-sided low back pain with right-sided sciatica Lumbar radiculopathy, chronic 1 Occurrences starting 01/09/2024 until 01/08/2025 [facility] Comment on above: 1 Occurrences starti ng 01/09/2024 until 01/08/2025 End: 01-08-2025 MR Thoracic spine WO contrast MR thoracic spine without contrast Imaging Routine DDD (degenerative disc disease), thoracic Osteophyte of vertebrae 1 Occurrences starting 01/09/2024 until 01/08/2025 [facility] Work Phone: Comment on above: 1 Occurrences starti ng 01/09/2024 until 01/08/2025 Immunizations Immunization Date Immunization Notes Care Provider Fa cility 08-01-2023 Seasonal, quadrivale nt, recombinant, injectable influenza vaccine, preservative free Chana Joy [facility] 08-01-2023 influenza virus vaccine, unspecified formulation Genaro Bui LOSS PREVENTION LEAD-SOLE LEVELER MACHINE Work Phone: [facility] 07-30-2022 Seasonal, quadrivale nt, recombinant, injectable influenza vaccine, preservative free [facility] 07-24-2021 Seasonal, quadrivale nt, recombinant, injectable influenza vaccine, preservative free [facility] 07-11-2019 influenza, injectabl e, quadrivalent, contains preservative [facility] 07-11-2019 influenza, injectabl e, quadrivalent, preservative free [facility] 07-13-2018 influenza, injectabl e, quadrivalent, preservative free [facility] 09-24-2012 tetanus toxoid, redu efrain diphtheria toxoid, and acellular pertussis vaccine, adsorbed [facility] 05-07-2005 TD(adult) unspecifie d formulation [facility] Payers Date Payer Category Payer Private Health Insurance [employer] [id number] 2014 Unknown [employer] [place] [employer] [id number] 2014-Present [phone] [address] [place] [address] 1.2.840.118765.1.13.424.2. 7.3.602006.315 1980 Unknown [id number] 2.16.840.1.663225.3.579.2. 593 1980 Unknown [id number] .16.840.1.423782.3.579.2. 593 1980 Unknown [id number] 2.16.840.1.244788.3.579.2. 593 1980 Unknown [id number] 2.16.840.1.950676.3.579.2. 1285 1980 Unknown [id number] 2.16.840.1.104313.3.579.2. 1285 1980 Unknown [id number] 2.16.840.1.423015.3.579.2. 1285 1980 Unknown [id number] 2.16.840.1.086850.3.579.2. 1285 1980 Unknown [id number] 2.16.840.1.050250.3.579.2. 1285 1980 Unknown [id number] 2.16840.1.670108.3.579.2. 1285 1980 Unknown [id number] 2.16840.1.964952.3.579.2. 1285 1980 Unknown [id number] 2.16840.1.610900.3.579.2. 1285 1980 Unknown [id number] 2.16.840.1.578096.3.579.2. 1285 1980 Unknown [id number] 2.16840.1.791699.3.579.2. 1285 1980 Unknown [id number] 2.16.840.1.850514.3.579.2. 1285 1980 Unknown [id number] 2.16.840.1.046690.3.579.2. 1285 1980 Unknown [id number] 2.16.840.1.169369.3.579.2. 1285 1980 Unknown [id number] 2.16840.1.248410.3.579.2. 1285 1980 Unknown [id number] 2.16.840.1.204752.3.579.2. 1286 1980 Unknown [id number] 2.16.840.1.426474.3.579.2. 1285 1980 Unknown [id number] 2.16.840.1.432890.3.579.2. 1285 1980 Unknown [id number] 2.16.840.1.182579.3.579.2. 1285 1980 Unknown [id number] 2.16.840.1.734644.3.579.2. 1285 1980 Unknown [id number] 2.16.840.1.226698.3.579.2. 1285 1980 Unknown [id number] 2.16.840.1.276209.3.579.2. 1285 1980 Unknown [id number] 2.16.840.1.996450.3.579.2. 1285 1980 Unknown [id number] 2.16.840.1.439333.3.579.2. 1285 1980 Unknown [id number] 2.16.840.1.153093.3.579.2. 1285 1980 Unknown [id number] 2.16.840.1.557222.3.579.2. 1285 1980 Unknown [id number] 2.16840.1.726568.3.579.2. 1285 1980 Unknown [id number] 2.16.840.1.580890.3.579.2. [facility] Unknown [id number] Self-pay Self Pay [id number] Social History Date Type Detail Facility Tobacco smoking stat [facility] Unknown if ever smoked [facility] Start: 1980 Sex Assigned At Female [facility] Start: 08-12-2022 Tobacco smoking status NHIS Never smoked tobacco [facility] Start: 08-12-2022 Tobacco use and exposure Smokeless tobacco non-user [facility] Start: 11-09-2023 End: 01-09-2024 Alcohol intake Current non-drinker of alcohol (finding) [facility] Start: 10-27-2020 End: 11-09-2023 History of Social function [facility] Start: 10-27-2020 End: 11-09-2023 Tobacco use panel [facility] How hard is it for y ou to pay for the very basics like food, housing, medical care, and heating Not hard at all [facility] Start: 1980 Sex Assigned At Not on file [facility] Start: 08-13-2022 Sexual orientation Heterosexual (finding) [facility] Tobacco smoking stat us NHIS Tobacco smoking consumption unknown [facility] Goals Date Patient Goal Desired Activity /State Clinical Notes 11-14-2023 to 01-09-2024 JC Spain - 01/09/2024 9:00 AM Jackeline Vega PA-C - 12/02/2023 11:00 AM ESTPatient InstructionsTelephone Encounter - Sangeetha Portillo LPN - 11/15/2023 12:36 PM EST Note Date & Type Note Facility 01-09-2024 History of Presen t illness Narrative Images from the original note were not included. [facility] [address] [place] [address], [address] [place] [address] * CHART NOTE ? 01/09/2024 Patient: Veronica Mary 1980 [id number] Physician: Genaro Bui CNP CHIEF COMPLAINT Follow up, thoracic pain HISTORY OF PRESENT ILLNESS 43 yo female presents for a follow up regarding mid back pain that has been intermittent over the last 18-20 years that became increased after doing a new exercise program that involved a lot of twisting from side to side. Her pain is exacerbated by any kind of activity and is slightly alleviated by taking Motrin or Tylenol and taking hot showers. She admits to some numbness and tingling in the mid back area when her pain is increased, but denies any weakness or symptoms of cauda equina. Veronica reports she has completed approximately 11 PT visits at [facility] for the thoracic and lumbar spine which, she states, has provided significant relief. She advises she continues to have some intermittent pain in the right mid back that radiates to the ribs. She also has intermittent pain in the right low back and posterior right leg. Denies loss of bathhouse attendant strength, saddle anesthesia, urinary or bowel dysfunction, weakness, numbness or tingling, and loss of balance. No pertinent surgical history. ALLERGIES No Known Allergies MEDICATIONS Current Outpatient Medications: esomeprazole (NexIUM) 20 mg capsule, Take 1 capsule (20 mg total) by mouth in the morning and 1 capsule (20 mg total) in the evening. Take before meals., Disp: 60 capsule, Rfl: 1 famotidine (PEPCID) 20 mg tablet, Take 1 tablet (20 mg total) by mouth 2 (two) times a day. (Patient taking differently: Take 1 tablet (20 mg total) by mouth as needed.), Disp: 60 tablet, Rfl: 1 fluticasone propionate (FLONASE) 50 mcg/actuation nasal spray, Administer 1 spray into each nostril 2 (two) times a day., Disp: 15.8 mL, Rfl: 5 levonorgestreL (MIRENA) 20 mcg/24 hours (7 yrs) 52 mg IUD, 1 each by intrauterine route once., Disp: , Rfl: cyclobenzaprine (FLEXERIL) 10 mg tablet, Take 1 tablet (10 mg total) by mouth every 8 (eight) hours as needed for muscle spasms. (Patient not taking: Reported on 01/09/2024), Disp: 45 tablet, Rfl: 3 VITAL SIGNS BP 125/89 Pulse 84 Ht 160 cm (5' 3 ) Wt 90.3 kg (199 lb) BMI 35.25 kg/m PHYSICAL EXAMINATION Neurologic Exam Mental Status Oriented to person, place, and time. Level of consciousness: alert Knowledge: good. Motor Exam Muscle bulk: normal Overall muscle tone: normal Strength Strength 5/5 throughout. Sensory Exam Light touch normal. Gait, Coordination, and Reflexes Gait Gait: normal Reflexes Right brachioradialis: 2+ Left brachioradialis: 2+ Right biceps: 2+ Left biceps: 2+ Right triceps: 2+ Left triceps: 2+ Right patellar: 2+ Left patellar: 2+ Right achilles: 2+ Left achilles: 2+ Right bathhouse attendant: 2+ Left bathhouse attendant: 2+ Right Henderson: absent Left Henderson: absent Right ankle clonus: absent Left ankle clonus: absent MRI / IMAGES Thoracic x-rays 11/10/23 Narrative & Impression CLINICAL INFORMATION: Thoracic back pain, unspecified back pain laterality, unspecified chronicity TECHNIQUE: XR SPINE THORACIC 3 VWS 3 views of the thoracic spine were obtained. There is no thoracic malalignment or compression. Endplates appear intact. No fracture. IMPRESSION: No acute findings. Lumbar flexion/extension x-rays 11/14/23 Narrative & Impression Procedure: Lumbo-sacral spine radiographs performed Number of views:3 History:Back pain and sciatica Comparison:None Findings: There is no fracture, malalignment, or destructive lesion. Impression: No acute findings. IMPRESSION / PLAN 43 yo female presents for a follow up regarding mid back pain that has been intermittent over the last 18-20 years that became increased after doing a new exercise program that involved a lot of twisting from side to side. Her pain is exacerbated by any kind of activity and is slightly alleviated by taking Motrin or Tylenol and taking hot showers. She admits to some numbness and tingling in the mid back area when her pain is increased, but denies any weakness or symptoms of cauda equina. Veronica reports she has completed approximately 11 PT visits at [facility] for the thoracic and lumbar spine which, she states, has provided significant relief. She advises she continues to have some intermittent pain in the right mid back that radiates to the ribs. She also has intermittent pain in the right low back and posterior right leg. PLAN: Thoracic MRI without contrast. Patient has completed 11 visits of PT with some improvement, but with continued intermittent pain. Thoracic x-rays show multilevel disc space narrowing with anterior osteophytes that appear to be bridging at some levels; possible DISH. Lumbar MRI without contrast. Patient has completed 11 visits of PT with some improvement, but with continued intermittent pain. Lumbar x-rays show disc space narrowing that is greatest at L5-S1 and facet arthropathy that is greatest in the lower lumbar spine. Consider referral to Pain Management for interventional pain procedures vs Neurosurgeon once MRIs are completed. Follow up after MRIs. Electronically Signed By: Genaro Bui CNP This note was created with the assistance of a speech recognition program with the goal of generating a timely record of the patient encounter. Inadvertent computerized inspector missile errors related to syntax, spelling, homophones, and/or inaudibility may be present. JC Spain 01/09/24 1020 documented in this encounter [facility] 12-02-2023 History of Presen t illness Narrative [facility] Follow Up Visit CHIEF COMPLAINT: Chief Complaint Patient presents with Follow-up Patient is here for a follow up for gerd. She reports she is feeling ok HISTORY OF PRESENT ILLNESS: Veronica Mary is a 43 y.o. female who has a PMH of GERD who presents today for a return visit for follow-up. Brief GI History Veronica is a patient of myself and Dr. Hood, last seen in August 2023. At that time, her constipation has resolved, suspected likely IBS/functional related. Her GERD is under good control on Nexium 40 mg b.i.d., she elected to continue this medication for the next few months to get her through the holiday season. She elected to discuss decreasing dose at a follow-up visit, which we will discuss today. Consider esophageal manometry/pH impedance study off PPI if symptoms recur. Patient states she is feeling okay today, main concern as she has having a lot of back pain. However, her GI symptoms seem to remain resolved. She has been increasing the amount of Motrin she is taking in the last few weeks due to her back pain, sometimes if she takes too much in a day , she will get a little bit of nausea, however, no other breakthrough symptoms. She is interested in decreasing her PPI to 20 mg b.i.d. at this time. Denies other GI symptoms. Weight 12/02/23 1041 90.3 kg (199 lb) 11/14/23 1022 90.3 kg (199 lb) 11/09/23 1501 90.3 kg (199 lb) 08/25/23 1043 87.1 kg (192 lb) 05/26/23 0918 85.7 kg (189 lb) 05/24/23 1358 85 kg (187 lb 8 oz) PREVIOUS ENDOSCOPIC PROCEDURES: 08/13/[address] Hood -- DANIEL sedation. Performed due to screening for Jennings's esophagus, abdominal pain, GERD, unexplained chest pain, diarrhea. Z-line regular, 35 cm from the incisors. The exam of the esophagus was otherwise normal. Biopsied. A few small gastric polyps. Biopsied. The exam of the stomach was otherwise normal. Biopsied. Normal examined duodenum. Biopsied. Duodenum, biopsy showed fragments of duodenal mucosa with no significant histologic abnormalities. Benign submucosal lymphoid nodule. No dysplasia or malignancy identified. Stomach, biopsy showed mild chronic inactive gastritis focal intestinal metaplasia. No dysplasia identified. No Helicobacter pylori organisms seen on H&E stain. Confirmatory immunostain for Helicobacter pylori organisms is performed with appropriate controls and is negative. Gastric polyp, biopsy showed benign fundic gland polyp. Distal esophagus, biopsy showed esophageal squamocolumnar with no significant histologic abnormalities. No eosinophilia, metaplasia or dysplasia identified. Proximal esophagus, biopsy showed fragments of esophageal squamous mucosa with no histologic abnormalities. No chronic or active inflammation, eosinophilia or dysplasia identified. 01/23/[address] Goode -- DANIEL sedation. Performed due to GERD. GERD without esophagitis. 01/23/[address] Goode -- DANIEL sedation. Performed due to diarrhea and IBS. Normal colonoscopy to terminal ileum, random colon biopsies obtained to rule out microscopic colitis. PREVIOUS IMAGIN11/06/2023 CT AP without contrast A few scattered diverticula without diverticulitis. 05/27/2022 fluoroscopy upper GI air contrast with KUB Esophageal dysmotility. Small hiatal hernia. Gastroesophageal reflux was not identified during this exam. 05/19/2022 ultrasound abdomen Gallbladder is sonolucent. No definite stone. No abnormal wall thickness, pericholecystic fluid, nor biliary tree dilatation. No free fluid hepatorenal fossa and no right renal obstruction. Liver echotexture is uniform in echotexture without discrete mass. Portal vein is patent with hepatopedal flow. Pancreas obscured by bowel gas. No definite pancreatic ductal dilatation. 11/18/2020 HIDA scan No evidence of acute cholecystitis or biliary obstruction. Normal hepatic morphology and activity. Calculated gallbladder ejection fraction is 86%. REVIEW OF SYSTEMS: Review of Systems Constitutional: Negative for appetite change and unexpected weight change. HENT: Negative for trouble swallowing. Gastrointestinal: Negative for abdominal distention, abdominal pain, anal bleeding, blood in stool, constipation, diarrhea, nausea, rectal pain and vomiting. Skin: Negative for color change. ALLERGIES: Patient has no known allergies. Current Medications: Current Outpatient Medications: cyclobenzaprine (FLEXERIL) 10 mg tablet, Take 1 tablet (10 mg total) by mouth every 8 (eight) hours as needed for muscle spasms., Disp: 45 tablet, Rfl: 3 famotidine (PEPCID) 20 mg tablet, Take 1 tablet (20 mg total) by mouth 2 (two) times a day. (Patient taking differently: Take 1 tablet (20 mg total) by mouth as needed.), Disp: 60 tablet, Rfl: 1 fluticasone propionate (FLONASE) 50 mcg/actuation nasal spray, Administer 1 spray into each nostril 2 (two) times a day., Disp: 15.8 mL, Rfl: 5 levonorgestreL (MIRENA) 20 mcg/24 hours (7 yrs) 52 mg IUD, 1 each by intrauterine route once., Disp: , Rfl: esomeprazole (NexIUM) 20 mg capsule, Take 1 capsule (20 mg total) by mouth in the morning and 1 capsule (20 mg total) in the evening. Take before meals., Disp: 60 capsule, Rfl: 1 I reviewed and reconciled this patient's medication list today. The list included in this note is the most up to date list that I can attest to at this time based on the information that the patient has provided me and the electronic medical record. PAST MEDICAL, SOCIAL AND FAMILY HISTORY: Past Medical History: Past Medical History: Diagnosis Date Seasonal allergies Past Surgical History: Past Surgical History: Procedure Laterality Date COLONOSCOPY ESOPHAGOGASTRODUODENOSCOPY w bx & polypectomy N/A 08/13/2022 Performed by Marii Hood MD at [facility] Family History: Family History Problem Relation Age of Onset Diabetes Mother Heart failure Mother Thyroid cancer Mother Hypertension Father Aortic aneurysm Father Colon cancer Maternal Uncle Inflammatory bowel disease Neg Hx Celiac disease Neg Hx SOCIAL HISTORY: Social History Tobacco Use Smoking status: Never Smokeless tobacco: Never Vaping Use Vaping Use: Never used Substance Use Topics Alcohol use: No Drug use: No PHYSICAL EXAM: BP 126/74 Ht 160 cm (5' 3 ) Wt 90.3 kg (199 lb) LMP 10/24/2023 BMI 35.25 kg/m Body mass index is 35.25 kg/m . Physical Exam Constitutional: General: She is not in acute distress. Appearance: She is not toxic-appearing. Eyes: General: No scleral icterus. Abdominal: General: Bowel sounds are normal. There is no distension. Palpations: Abdomen is soft. Tenderness: There is no abdominal tenderness. Skin: Coloration: Skin is not jaundiced or pale. Neurological: Mental Status: She is alert. Psychiatric: Mood and Affect: Mood normal. Behavior: Behavior normal. DATA: CBC: Lab Results Component Value Date WBC 8.2 10/31/2020 HGB 12.9 10/31/2020 HCT 38.4 10/31/2020 MCV 91 10/31/2020 RDW 13.4 10/31/2020 PLT 284 10/31/2020 CMP: Lab Results Component Value Date K 4.1 10/31/2020 CL 100 10/31/2020 CO2 27 10/31/2020 BUN 11 10/31/2020 GLU 90 10/31/2020 FOLATE: No results found for: FOLATE HgBA1c: No results found for: HGBA1C Iron Studies: No results found for: FE , TIBC , FERRITIN PT/INR: No results found for: INR TSH: No results found for: TSH VITAMIN B12: No components found for: B12 25 Hydroxy Vitamin D Level: No components found for: VITDTOTAL DIAGNOSTIC STUDIES REVIEWED: As noted in the HPI ASSESSMENT AND PLAN: Veronica Mary is a 43 y.o. female who has a PMH of GERD who presents today for a return visit for follow-up. Patient states she is feeling okay today, main concern as she has having a lot of back pain. However, her GI symptoms seem to remain resolved. She has been increasing the amount of Motrin she is taking in the last few weeks due to her back pain, sometimes if she takes too much in a day , she will get a little bit of nausea, however, no other breakthrough symptoms. She is interested in decreasing her PPI to 20 mg b.i.d. at this time. Denies other GI symptoms. GERD (well-controlled): Decrease Nexium to 20mg bid. Can use Pepcid 20mg bid prn breakthrough acid reflux symptoms. Discussed anti-reflux measures, use NSAIDs carefully and sparingly if needing to take them. Consider pH impedance/manometry if symptoms recur. Constipation (resolved): She is intolerant/sensitive to lactose, plain eggs, nitrates, and nuts. She finds these food items cause stomach pain and diarrhea so has been avoiding them. She uses oat milk. She was previously sent to finishing range feeder and reassured Patient is aware and agreeable to this plan. Patient is to follow-up in 2 months or sooner as needed. No orders of the defined types were placed in this encounter. Total time spent was 31 minutes: Preparing to see the patient (e.g., review of tests) Obtaining and/or reviewing separately obtained history Performing a medically appropriate examination and/or evaluation Counseling and educating the patient/family/caregiver Ordering medications, tests, or procedures [place] [address] PH: [phone] ([place]) / [phone] ([place]) ([place]) / [phone] ([place]) Patient to follow with Antoinette Vega PA-C and Dr. Hood This note is dictated with the use of M*Modal.Please note that this dictation was completed with computer voice recognition software. Quite often unanticipated grammatical, syntax, homophones, and other interpretive errors are inadvertently transcribed by the computer software. Please disregard these errors. Please excuse any errors that have escaped final proofreading. Antoinette Vega PA-C 12/02/23 1119 documented in this encounter [facility] 12-02-2023 Instructions Antoinette Vega PA-C - 12/02/2023 11:00 AM EST Take Nexium 20 mg twice a day, 20-30 minutes before breakfast and dinner For persistent heartburn symptoms, you may take [id number] Pepcid (also known as Famotidine) 20 milligrams as needed every 12 hours. This medication works within 30 minutes to shut down acid in the stomach. Avoid high acid foods and drinks like coffee, soda, alcohol, spicy foods, vinegar, tomato-based foods (marinara and pizza sauce), citrus (OJ, basim), onions, garlic, mint and chocolate Avoid eating meals within 3 hours of bedtime. Try to sit completely upright for a least 2-3 hours after eating. Elevate the head of the bed when sleeping or reclining (either with bed risers, a wedge, or multiple pillows) at least 30 degrees. documented in this encounter [facility] 11-15-2023 Miscellaneous Notes Patient was in last week for back pain, referred her to spine clinic, they are ordering PT. She has been called for jury duty and she wants to know if you could write something up to get her out of this, she does not think with her back she can sit all day in a hard chair. Yes you may excuse pt Can you write a note up please. Thank you Letter prepared and ready for apple picker tomorrow documented in this encounter [facility] 11-15-2023 Telephone encounter Note Patient was in last week for back pain, referred her to spine clinic, they are ordering PT. She has been called for jury duty and she wants to know if you could write something up to get her out of this, she does not think with her back she can sit all day in a hard chair. [facility] 11-15-2023 Telephone encounter Note Yes you may excuse pt [facility] 11-15-2023 Telephone encounter Note Can you write a note up please. Thank you [facility] 11-15-2023 Telephone encounter Note Letter prepared and ready for apple picker tomorrow [facility] 11-14-2023 Note XR SPINE LUMB BENDIN G ONLY 2-3 VWS Procedure: Lumbo-sacral spine radiographs performed Number of views:3 History:Back pain and sciatica Comparison:None Findings: There is no fracture, malalignment, or destructive lesion. Impression: No acute findings. Finalized by Joanne Guevara DO on 11/14/2023 11:43 AM [facility] Evaluation note Diagnosis Thoracic back pain, unspecified back pain laterality, unspecified chronicity- Primary documented in this encounter [facility]* Diagnosis Gastroesophageal reflux disease without esophagitis- Primary Esophageal reflux documented in this encounter [facility]* Diagnosis DDD (degenerative disc disease), thoracic- Primary Degeneration of thoracic or thoracolumbar intervertebral disc Osteophyte of vertebrae Chronic right-sided low back pain with right-sided sciatica Lumbar radiculopathy, chronic documented in this encounter [facility] SystemInstructionsNot on filedocumented in this encounter [facility] SystemInstructionsNot on filedocumented [facility] Attachments The following attachments cannot be sent through Care Everywhere. * Degenerative Disc Disease (Lao) * Radiculopathy ([place]o) [facility] Directives Advance Directive Response Recorded Date/ Time Advance Directives No January 15 1:32pm Chief Complaint and Reason for Visit Chief Complaint Abdominal Pain, GERD ,Alternating Diarrhea & Consti Assessments No Assessments Information Available Summary Purpose Family History No Family History Records FoundNo Family History Records FoundNo Family History Records FoundNo Family History Records FoundNo Family History Records Found Reason for Referral Specialty Diagnoses / Procedures Referred By Contac t Referred To Contact Radiology Diagnoses Chronic right-sided low back pain with right-sided sciatica Lumbar radiculopathy, chronic Procedures MR lumbar spine without contrast Genaro Bui APRN-SOLE LEVELER MACHINE [address] [place] [address] [place] [address] [place] [address] Phone: [phone] Referral ID Status Reason Start Date Expiration Date V isits Requested Visits Authorized [id number] Authorized 01/09/2024 02/23/2024 1 1 Specialty Diagnoses / Procedures Referred By Contac Referred To Contact Radiology Diagnoses DDD (degenerative disc disease), thoracic Osteophyte of vertebrae Procedures MR thoracic spine without contrast Genaro Bui APRN-SOLE LEVELER MACHINE [address] [place] [address] [place] [id number] [place] [address] Phone: [phone] Referral ID Status Reason Start Date Expiration Date V isits Requested Visits Authorized [id number] Pending Review 01/09/2024 01/08/2025 1 1 Additional Source Comments INFORMATION SOURCE (unrecogn ized section and content) DATE CREATED AUTHOR 10/25/2021 [facility] DATE CREATED AUTHOR AUTHOR'S ORGANIZ ATION 10/01/2022 [facility] DATE CREATED AUTHOR AUTHOR'S ORGANIZ ATION 05/15/2024 [facility] DATE CREATED AUTHOR AUTHOR'S ORGANIZ ATION 06/29/2024 [facility] DATE CREATED AUTHOR AUTHOR'S JENNIFER ATION 06/29/2024 [facility] Care Teams (unrecognized sec tion and content) Crane Mechanic Relationship Specialty Start Date End Date Rober Juares MD [address] [place] [address] PCP - General Family Medicine 05/27/22 [employer]ane Mechanic Relationship Specialty Start Date End Date Rober Juares MD [address] [place] [address] PCP - General [facility] 05/27/22 [employer] Relationship Specialty Start Date End Date Rober Juares MD [address] [place] [address] PCP - General Family Medicine 05/27/22 [employer]ic Relationship Specialty Start Date End Date Rober Juares MD [address] [place], [place] [id number] PCP - General 08/01/23 Reason for Visit (unrecogniz ed section and content) Reason Comments Follow-up Patient is here for a follow up for gerd. She reports she is feeling ok Reason Comments Follow-up Back pain FOR RECORDS PERTAINING TO PATIENTS WHO ARE OR HAVE BEEN ENROLLED IN A CHEMICAL DEPENDENCY/SUBSTANCEABUSE PROGRAM, SOME INFORMATION MAY BE OMITTED. This clinical summary was aggregated from multiple sources. Caution should be exercised in using it in the provision of clinical care. This summary normalizes information from multiple sources, and as a consequence, information in this document may materially change the coding, format and clinical context of patient data. In addition, data may be omitted in some cases. CLINICAL DECISIONS SHOULD BE BASED ON THE PRIMARY CLINICAL RECORDS. [employer] [facility]. provides no warranty or guarantee of the accuracy or completeness of information in this document.
[2024-08-22 12:12] LABS: Age Gdln ACOG Testing Note (.); HPV Aptima Negative (Negative); IGP, Aptima HPV, rfx 16/18,45 Note (.)
== END 2024-08-13 22:01 | disposition home or self-care (01) ==
LOC: LAB 22:00
PROVIDERS: Visit Provider Obstetrics & Gynecology
DX: Z01.419 Encounter for gynecological examination (general) (routine) without abnormal findings (principal)
CPT/HCPCS: 87624; 88175

== ENCOUNTER 2025-05-22 10:21 | Outpatient (OUT) | payer OTHER, SELFPAY ==
--- NOTE | 2025-05-22 10:29 | MM_ITS ---
Patient Name: KIMBERLY MARY MR#: [id number] : 1980 Exam Date: 05/22/2025 Ordering Doctor: DR HIRAM ESCOBAR . RADIOLOGY REPORT PROCEDURE: MM TOMOSYNTHESIS SCREENING BI COMPARISON: MM TOMOSYNTHESIS SCREENING BI, 05/21/2024. MM TOMOSYNTHESIS SCREENING BI, 05/18/2023. MG MAMM SCREEN 3D [place] CAD, 05/12/2022. MG MAMM SCREEN 3D [place] CAD, 05/08/2021. INDICATIONS: Screening Calculator Name NCI Breast Cancer Risk Assessment Tool 5 Year Breast Cancer Risk 1.10% Lifetime Breast Cancer Risk 13.10% Personal Breast Cancer No Personal Ovarian Cancer No Treatments None Family Cancers Uncle-maternal with colon cancer at age ~60; Aunt-maternal with breast cancer at age ~60; Mother with thyroid cancer at age 64. LOCATION: [facility] BREAST COMPOSITION: There are scattered areas of fibroglandular density. FINDINGS: RIGHT BREAST: No significant suspicious finding. LEFT BREAST: No significant suspicious finding. DIAGNOSTIC CATEGORY 1--NEGATIVE. RECOMMENDATIONS: ROUTINE MAMMOGRAM AND CLINICAL EVALUATION IN 12 MONTHS. PLEASE NOTE: A NORMAL MAMMOGRAM DOES NOT EXCLUDE THE POSSIBILITY OF BREAST CANCER. A CLINICALLY SUSPICIOUS PALPABLE LUMP SHOULD BE BIOPSIED. Dictated by: Sahil Nguyen MD on 05/22/2025 at 14:28 Approved by: Sahil Nguyen MD on 05/22/2025 at 14:39
--- OUTSIDE RECORDS SUMMARY | 2025-05-22 10:37 | XMS_ITS | CCD ---
Author Organization [facility] Care Team Providers Care Frame Trimmer Name Role Phone Rober Goode Attending Provider Rober Juares Primary Care Provider ROSALBA, DR GANDHI Admitting Unavailable ROSALBA, DR GANDHI Attending Unavailable ROSALBA, DR GANDHI Consulting Unavailable REQUEST, NONE LISTED Primary Care Unavaila ble ZIEBER, DR CHOCO Esqueda Consulting Unavailable ROSALBA, DR GANDHI Attending Unavailable ROSALBA, DR GANDHI Consulting Unavailable ROSALBA, DR GANDHI Admitting Unavailable REQUEST, NONE LISTED Primary Care Unavaila ble ROSALBA, DR GANDHI Attending Unavailable ROSALBA, DR GANDHI Admitting Unavailable REQUEST, DR FORST LISTED Primary Care Unavaila ble ZIEBER, DR CHOCO Esqueda Consulting Unavailable Rober Juares MD Primary Care Provider ERIC NAVARRETE Attending Unavailable Rober Juares MD Primary Care Provider [phone] ANTOINETTE RUSS Attending Unavailabl e ROBER JUARES Referring Unavailable DEFRANCE, ROBER Gilman Primary Care Unavailable DEFRANCEROBER Attending Unavailable DEFRANCE, ROBER Gilman Referring Unavailable DEFRANCE, ROBER Gilman Primary Care Unavailable DEFRANCEROBER Attending Unavailable DEFRANCE, ROBER Gilman Referring Unavailable DEFRANCE, ROBER Gilman Primary Care Unavailable DEFRANCEROEBR Attending Unavailable DEFRANCEROBER Referring Unavailable DEFRANCE, ROBER Gilman Primary Care Unavailable ANTOINETTE RUSS Attending Unavailabl e ROBER JUARES Referring Unavailable DEFRANCE, ROBER Gilman Primary Care Unavailable DEFRANCEROBER Attending Unavailable DEFRANCE, ROBER Gilman Referring Unavailable DEFRANCE, ROBER Gilman Primary Care Unavailable ANTOINETTE RUSS Attending Unavailabl e DEFROBER DE LA GARZA Referring Unavailable DEFRANCE, ROBER Gilman Primary Care Unavailable Rober Juares MD Primary Care Provider Rober Juares MD Primary Care Provider Derick Tolliver MD Primary Care Provider ANTOINETTE RUSS Referring Unavailabl e DEFRANCE, ROBER T Primary Care Unavailable SCHRINELANTOINETTE Attending Unavailabl e DEFRANCE, ROBER T Referring Unavailable DEFRANCE, ROBER T Primary Care Unavailable SCHRINELANTOINETTE Attending Unavailabl e DEFRANCE, ROBER T Referring Unavailable SHAREE, DERICK Primary Care Unavailable DEFRANCE, ROBER T Primary Care Unavailable VEGA ALONZO Attending Unavailable CHERIVEGA Attending Unavailable VEGA ALONZO Referring Unavailable DEFRANCE, ROBER T Primary Care Unavailable YULIA VILLEGAS Attending Unavailable DEFRANCE, ROBER T Referring Unavailable DEFRANCE, ROBER T Primary Care Unavailable MASOOD WRIGHT Admitting Unavailable WRIGHT, MASOOD Huber Attending Unavailable DEFRANCE, ROBER T Referring Unavailable DEFRANCE, ROBER T Primary Care Unavailable MASOOD WRIGHT Attending Unavailable MASOOD WRIGHT Referring Unavailable DEFRANCE, ROBER Gilman Primary Care Unavailable YULIA VILLEGAS Attending Unavailable DEFRANCE, ROBER T Referring Unavailable DEFRANCE, ROBER T Primary Care Unavailable SCHANTOINETTE HAHN Referring Unavailabl e DEFRANCE, ROBER T Primary Care Unavailable SCHANTOINETTE HAHN Referring Unavailabl e DEFRANCE, ROBER T Primary Care Unavailable NIENBERGCIRA Attending Unavailable DEFRANCE, ROBER T Referring Unavailable DEFRANCE, ROBER T Primary Care Unavailable WRIGHTMASOOD DE JESUS Admitting Unavailable WRIGHTMASOOD DE JESUS Attending Unavailable DEFRANCE, ROBER T Referring Unavailable DEFRANCE, ROBER T Primary Care Unavailable MASOOD WRIGHT Attending Unavailable MASOOD WRIGHT Referring Unavailable DEFRANCE, ROBER T Primary Care Unavailable NIENBERGCIRA Attending Unavailable DEFRANCE, ROBER T Referring Unavailable DEFRANCE, ROBER T Primary Care Unavailable NIENBERGCIRA Attending Unavailable DEFRANCE, ROBER T Referring Unavailable DEFRANCE, ROBER T Primary Care Unavailable MASOOD WRIGHT Admitting Unavailable MASOOD WRIGHT Attending Unavailable DEFRANCE, ROBER T Referring Unavailable SHAREE, DERICK Primary Care Unavailable MASOOD WRIGHT Attending Unavailable MASOOD WRIGHT Referring Unavailable SHAREE, DERICK Primary Care Unavailable BAKARI, CIRA Munoz Attending Unavailable DEFRANCE, ROBER T Referring Unavailable SHAREE, DERICK Primary Care Unavailable SCHRINEL, ANTOINETTE N Referring Unavailabl e SHAREE, DERICK Primary Care Unavailable Unavailable Unavailable Unavailable Allergies Allergy Classification Reported Allergen(s) Allergy Type Date of Onset Reaction(s) Facility (14 sources) Ciprofloxacin; Translations: [CIPROFLOXACIN] Drug Allergy 05-24-2024 [facility] (14 sources) metroNIDAZOLE; Translations: [METRONIDAZOLE] Drug Allergy 05-24-2024 [facility] Medications Current Medications Medication Drug Class(es) Dates Sig (Normalized) Sig (Original) amoxicillin 875 mg / clavulanate 125 mg oral tablet (2 sources) Penicillin-class Antibacterial Start: 10-12-2024 End: 10-19-2024 take 1 tablet by mouth once in the morning amoxicillin-pot clavulanate (AUGMENTIN) 875-125 mg per tablet Take 1 tablet by mouth in the morning and 1 tablet before bedtime. Do all this for 7 days. 14 tablet 10/12/2024 10/19/2024 Active cyclobenzaprine hydrochloride 10 mg oral tablet (11 sources) Muscle Relaxant Start: 11-09-2023 take 1 tablet by mouth every eight hours as needed cyclobenzaprine (FLEXERIL) 10 mg tablet Take 1 tablet (10 mg total) by mouth every 8 (eight) hours as needed for muscle spasms. 45 tablet 3 11/09/2023 Active esomeprazole 20 mg delayed release oral capsule (16 sources) Proton Pump Inhibitor Start: 05-14-2025 take 1 capsule by mouth once daily before breakfast, then take 1 capsule by mouth once daily esomeprazole (NexIUM) 20 mg capsule Indications: Gastroesophageal reflux disease without esophagitis Take 1 capsule (20 mg total) by mouth every morning before breakfast. One tablet daily 90 capsule 3 05/14/2025 Active Start: 06-27-2024 End: 05-14-2025 take 1 capsule by mouth once daily before breakfast, then take 1 capsule by mouth once daily esomeprazole (NexIUM) 20 mg capsule Indications: Gastroesophageal reflux disease without esophagitis Take 1 capsule (20 mg total) by mouth every morning before breakfast. One tablet daily 90 capsule 3 06/27/2024 05/14/2025 Discontinued (Reorder) esomeprazole (Ne xIUM) [address] capsule Take 20 mg by mouth 1 time Active take 1 capsule by mo uth once daily at mealtime esomeprazole (NexIUM) [address] capsule take 1 capsule by mouth every morning and every evening with meals Active famotidine 20 mg oral tablet (11 sources) Histamine-2 Receptor Antagonist Start: 10-29-2020 take 1 tablet by mouth twice daily famotidine (PEPCID) 20 mg tablet Take 1 tablet (20 mg total) by mouth 2 (two) times a day. 60 tablet 1 10/29/2020 Active 12 hr fexofenadine hydrochloride 60 mg / pseudoephedrine hydrochloride 120 mg extended release oral tablet (11 sources) alpha-Adrenergic Agonist, Histamine-1 Receptor Antagonist Start: 09-17-2024 take 1 tablet by mouth once as needed, then take 1 tablet by mouth every twelve hours as needed fexofenadine-pseudo ephedrine (RUBINA-D 12 HOUR) 60-120 mg per 12 hr tablet Take 1 tablet by mouth as needed for allergies. 60 tablet 2 09/17/2024 Active fluticasone propionate 0.05 mg/actuat metered dose nasal spray (11 sources) Corticosteroid Start: 10-16-2019 take 1 spray(s) nasal route twice daily fluticasone propionate (FLONASE) 50 mcg/actuation nasal spray Administer 1 spray into each nostril 2 (two) times a day. 15.8 mL 5 10/16/2019 Active levonorgestrel 0.495680 mg/hr intrauterine system (15 sources) Progestin, Progestin-containin g Intrauterine Device levonorgestreL (MIRENA) 20 mcg/24 hours (7 yrs) 52 mg IUD 1 each by intrauterine route once. Active Levonorgestrel 2 0 MCG/DAY intrauterine device 1 each by Intrauterine route. Active Problems Active Problems Problem Classification Problem Date Documented Da te Episodic/Chronic Diverticulosis and diverticulitis (3 sources) Diverticulitis; Translations: [Diverticulitis of intestine, part unspecified, without perforation or abscess without bleeding] Onset: 4 10-12-2024 Chronic Esophageal disorders (16 sources) Gastroesophageal reflux disease without esophagitis; Translations: [Gastro-esophageal reflux disease without esophagitis] Onset: 3 10-12-2024 Chronic Menstrual disorders (4 sources) Irregular menstruation, unspecified; Translations: [IRREGULAR MENSTRUATION UNSPECIFIED] Onset: 2 Chronic Other gastrointestinal disorders (1 source) Stool finding; Translations: [Other fecal abnormalities] 10-31-2024 Episodic Spondylosis; intervertebral disc disorders; other back problems (3 sources) Lumbosacral spondylosis without myelopathy; Translations: [Spondylosis without myelopathy or radiculopathy, lumbosacral region] Onset: 5 01-24-2025 Chronic Unclassified (1 source) Earache Onset: Past or Other Problems Problem Classification Problem Date Documented Da te Episodic/Chronic Abdominal pain (3 sources) Abdominal pain Onset: 05-14-2024 Episodic Immunizations and screening for infectious disease (1 source) Encounter for screening for human papillomavirus (HPV); Translations: [ENC SCREENING HUMAN PAPILLOMAVIRUS] Onset: 05-20-2022 Episodic Mood disorders (11 sources) Mood disorders Onset: 10-12-2024 10-12-2024 Other gastrointestinal disorders (4 sources) Diarrhea; Translations: [Diarrhea, unspecified] Onset: 01-10-2025 10-25-2024 Episodic Other gastrointestinal disorders (1 source) Heartburn Onset: 01-10-2025 Episodic Other gastrointestinal disorders (1 source) Constipation Onset: 01-10-2025 Episodic Other gastrointestinal disorders (1 source) Diarrhea, unspecified; Translations: [Diarrhea, unspecified] Onset: 10-26-2024 Episodic Other lower respiratory disease (1 source) Cough [...] neoplasm of digestive organs; Translations: [FAM HX MALIG NEOPLASM DIGESTIV ORGN] Onset: 05-16-2022 Episodic Residual codes; unclassified (1 source) Family history of malignant neoplasm of other organs or systems; Translations: [FAM HX MALIG NEOPLASM OTH ORGN/SYS] Onset: 05-16-2022 Episodic Spondylosis; intervertebral disc disorders; other back problems (20 sources) Disorder of sacrum; Translations: [Sacrococcygeal disorders, not elsewhere classified] Onset: 11-09-2023 09-21-2024 Episodic Unclassified (11 sources) Onset: 02-06-2019 02-06-2019 Results Test Name Value Interpretation Reference Range Facility CALPROTECTIN, Thom 05-08-2025 CALPROTECTIN, F <50.0 Normal <50.0 (Normal) [facility] Comment on above: Result Comment: Test Performed by: [facility] - [facility] [address] [place] [address] Escapement Matcher: Brenda Forrester Ph.D.; CLIA# [id number] Performed By: #### C ALPR #### [facility] [employer] (SDL) [address] [place] [address] VIR XR ABDOMEN AP 1 VWon 025 XR ABDOMEN AP 1 VW XR ABDOMEN AP 1 VW Clinical history: Assess stool burden. Rotating diarrhea and constipation. Comparisons: None Findings: Supine abdominal radiographs obtained. There is moderate volume stool throughout nondilated colon suggesting constipation. No dilated loops of large nor small bowel are identified. IUD is present within the pelvis. Calcifications adjacent to the right anterior superior iliac spine may reflect sequelae of remote injury. IMPRESSION: 1. Moderate volume stool throughout nondilated colon suggest constipation. No evidence for bowel obstruction. Finalized by Jeremy Schmidt MD on 10/29/2024 5:57 AM Normal [facility] C DIFFICILE BY PCRon 025 C. difficile toxin genes CHARLY+probe Ql (Stl) TOXIGENIC C DIFF Negative (qualifier value) 027 NAP1 Negative (qualifier value) Normal PRNEG [facility] Comment on above: Performed By: #### 8 2195-9 #### [facility] ([id number]) [address] [facility], [place] [address] [facility] ([id number]) [address], [address] [place] [address] #### [id number] #### [facility] ([id number]) [address], [address] [place] [address] Calprotectin (Stl) [Mass/Mas s]on 10-27-2024 Calprotectin, F 69.2 mcg/g High <50.0 (Normal) [facility] Comment on above: Result Comment: NOTE Interpretation: Borderline (50.0-120 mcg/g) Test Performed by: [facility] [address] [place] [address] Escapement Matcher: Brenda Forrester Ph.D.; CLIA# [id number] Performed By: #### 3 8445-3 #### [facility] ([id number]) [address] [place] [address] GI PANELon 10-27-2024 Gastrointestinal pathogens DNA and RNA panel CHARLY+non-probe (Stl) SPECIMEN SOURCE STOOL CAMPYLOBACTER Not detected (qualifier value) PLESIOMONAS Not detected (qualifier value) SALMONELLA Not detected (qualifier value) VIBRIO Not detected (qualifier value) VIBRIO CHOLERAE Not detected (qualifier value) Y. ENTEROCOLITICA Not detected (qualifier value) AGGREGATIVE E COLI Not detected (qualifier value) PATHOGENIC E COLI Not detected (qualifier value) TOXIGENIC E COLI Not detected (qualifier value) SHIGA TOXIN E COLI Not detected (qualifier value) SHIGELLA-E COLI Not detected (qualifier value) CRYPTOSPORIDIUM Not detected (qualifier value) CYCLOSPORA Not detected (qualifier value) E HISTOLYTICA Not detected (qualifier value) GIARDIA LAMBLIA Not detected (qualifier value) ADENOVIRUS Not detected (qualifier value) ASTROVIRUS Not detected (qualifier value) NOROVIRUS Not detected (qualifier value) ROTAVIRUS A Not detected (qualifier value) SAPOVIRUS Not detected (qualifier value) Normal NDET [facility] Comment on above: Performed By: #### 8 2195-9 #### [facility] ([id number]) [address] [place] [address] [facility] ([id number]) [address], [address] [place] [address] #### [id number] #### [facility] ([id number]) [address] [facility], [address] [place] [address] IGP,APTIMA HPV,AGE GDLNon AGE GDLN ACOG TESTING Note . [facility] Comment on above: TESTS RESULT FLAG UN ITS REF RANGE LAB Clinician Provided Cytology Information Source.............Cervix;Endocervix No. of containers..01 ThinPrep Vial Age Algo ACOG Mayra... FLAG LEGEND: L-Low Normal,H-High Normal,LL-Alert Low,HH-Alert High <-Panic Low,>-Panic High,A-Abnormal,AA-Critical Abnormal Performed at: 01 =[address] [place] [address] Hayley Marie MD, HPV APTIMA Negative Negative [facility] Comment on above: This nucleic acid am plification test detects fourteen high- risk HPV types (16,18,31,33,35,39,45,51,52,56,58,59,66,68) without differentiation. Performed at: =[address] [id number] Escapement Matcher: Hayley Marie MD, Phone: [phone] Performed at: [address] [place], [place] [id number] Escapement Matcher: Hayley Marie MD, Phone: [phone] IGP, APTIMA HPV, RFX 16/18,45 Note . [facility] Comment on above: TESTS RESULT FLAG UN ITS REF RANGE LAB DIAGNOSIS: 02 NEGATIVE FOR INTRAEPITHELIAL LESION OR MALIGNANCY. Specimen adequacy: 02 Satisfactory for evaluation. Endocervical and/or squamous metaplastic cells (endocervical component) are present. Performed by: 02 Elena Lira Rider Ticket Worker (ASCP) . 02 Note: Note 02 The Pap smear is a screening test designed to aid in the detection of premalignant and malignant conditions of the uterine cervix. It is not a diagnostic procedure and should not be used as the sole means of detecting cervical cancer. Both false-positive and false-negative reports do occur. Test Methodology: Note 02 This liquid based ThinPrep(R) pap test was screened with the use of an image guided system. HPV Genotype Reflex Note 02 Criteria not met, HPV Genotype not performed. FLAG LEGEND: L-Low Normal,H-High Normal,LL-Alert Low,HH-Alert High <-Panic Low,>-Panic High,A-Abnormal,AA-Critical Abnormal Performed at: [address] [place] [address] Hayley Marie MD, CERVIX ENDOCERVIX CLINISYNC [facility] MAGNESIUMon 06-27-2024 Magnesium [Mass/Vol] 1.9 mg/dL Normal 1.8-2.6 [facility] Comment on above: Performed By: #### 1 9123-9, 2132-06, 37773-1 #### [facility] ([id number]) [address] [facility], [address] [place] [address] VITAMIN B12on 06-27-2024 Cobalamin (Vitamin B12) [Mass/Vol] 292 pg/mL Normal 180-914 [facility] Comment on above: Performed By: #### 1 9123-9, 2132-06, 57687-5 #### [facility] ([id number]) [address] [facility], [address] [place] [address] Vitamin D+Metabolites [Mass/ Vol]on 06-27-2024 VITAMIN D 25 HYD TOT 25.1 ng/mL Low 30-100 [facility] Comment on above: Result Comment: Vitamin D status 25 [place] Vitamin D Deficiency <20 ng/mL Insufficiency 20-29 ng/mL Sufficiency 30-100 ng/mL Toxicity >100 ng/mL NOTE: A pediatric reference range has not been established by the head host/hostess of this kit. The [employer] recommends a Vitamin D level of = or >20ng/mL in infants and children. Performed By: #### 1 9123-9, 2132-06, 22008-2 #### [facility] ([id number]) [address] [facility], [address] [place] [address] BASIC METABOLIC PANLon 05-14 Anion gap [Moles/Vol] 6 mmol/L Normal 5-[address] [facility] Comment on above: Performed By: #### C BCA, BMP #### [facility] ([id number]) [address] [place] [address], [place] [address] Calcium [Mass/Vol] 8.6 mg/dL Normal 8.5-10.5 [facility] Comment on above: Performed By: #### C BCA, BMP #### [facility] ([id number]) [address] [place] [address] Chloride [Moles/Vol] 102 mmol/L Normal 98-109 [facility] Comment on above: Performed By: #### C BCA, BMP #### [facility] ([id number]) [address] [place] [address] CO2 [Moles/Vol] 25 mmol/L Normal 22-32 [facility] Comment on above: Performed By: #### C BCA, BMP #### [facility] ([id number]) [address] [place] [address] Creatinine [Mass/Vol] 0.65 mg/dL Normal 0.40-1.[address] [facility] Comment on above: Result Comment: METH OD TRACEABLE TO IDMS STANDARD Performed By: #### C BCA, BMP #### [facility] ([id number]) [address] [place] [address] eGFR (CKD-EPI) NON-RACE DEPENDENT >90 Normal >59 [facility] Comment on above: Result Comment: Reported eGFR is based on the CKD-EPI 2021 equation that does not use a race coefficient. Performed By: #### C BCA, BMP #### [facility] ([id number]) [address] [place] [address]29 Glucose [Mass/Vol] 74 mg/dL Normal 65-99 [facility] Comment on above: Performed By: #### C BCA, BMP #### [facility] ([id number]) [address] [place] [address] Potassium [Moles/Vol] 3.4 mmol/L Low 3.5-5.[address] [facility] Comment on above: Performed By: #### C BCA, BMP #### [facility] ([id number]) [address] [place] [address]33 Sodium [Moles/Vol] 133 mmol/L Low 134-146 [facility] Comment on above: Performed By: #### C LISA, BMP #### [facility] ([id number]) [address] [place] [address]64 Urea nitrogen [Mass/Vol] 10 mg/dL Normal 5-23 [facility] Comment on above: Performed By: #### C LISA, BMP #### [facility] ([id number]) [address] [place] [address] CBC AND AUTO DIFFon 05-14-20 24 ABSOLUTE BASOPHIL 0.1 X10E9/L Normal 0.0-0.2 [facility] Comment on above: Performed By: #### C LISA, BMP #### [facility] ([id number]) [address] [place] [address] ABSOLUTE NEUTROPHIL 10.2 X10E9/L High 1.5-6.[address] [facility] Comment on above: Performed By: #### C LISA, BMP #### [facility] ([id number]) [address] [place] [address] 31190 Basophils/100 WBC (Bld) 0.5 % Normal [facility] Comment on above: Performed By: #### C LISA, BMP #### [facility] ([id number]) [address] [place] [address]93 Eosinophils (Bld) [#/Vol] 0.1 10*3/uL Normal 0.0-0.4 [facility] Comment on above: Performed By: #### C LISA, BMP #### [facility] ([id number]) [address] [place] [address]7525 Eosinophils/100 WBC (Bld) 0.6 % Normal [facility] Comment on above: Performed By: #### C LISA, BMP #### [facility] ([id number]) [address] [place] [address]64 Erythrocyte distribution width (RBC) [Ratio] 13.3 % Normal 11.5-15.0 [facility] Comment on above: Performed By: #### C LISA, BMP #### [facility] ([id number]) [address] [place] [address]39 Hematocrit (Bld) [Volume fraction] 40.2 % Normal 35-47 [facility] Comment on above: Performed By: #### C LISA, BMP #### [facility] ([id number]) [address] [place] [address]6950 Hemoglobin (Bld) [Mass/Vol] 13.2 g/dL Normal 11.7-15.5 [facility] Comment on above: Performed By: #### C LISA, BMP #### [facility] ([id number]) [address] [place] [address]307 Lymphocytes (Bld) [#/Vol] 1.3 10*3/uL Normal 1.0-3.5 [facility] Comment on above: Performed By: #### C LISA, BMP #### [facility] ([id number]) [address] [place] [address] 03042 Lymphocytes/100 WBC (Bld) 10.6 % Normal [facility] Comment on above: Performed By: #### C LISA, BMP #### [facility] ([id number]) [address] [place] [address] 03818 MCH (RBC) [Entitic mass] 30.0 pg Normal 27-34 [facility] Comment on above: Performed By: #### C BCA, BMP #### [facility] ([id number]) [address] [place] [address]9717 MCHC (RBC) [Mass/Vol] 32.9 g/dL Normal 32-[address] [facility] Comment on above: Performed By: #### C LISA, BMP #### [facility] ([id number]) [address] [place] [address] 09146 MCV (RBC) [Entitic vol] 91 fL Normal 80-100 [facility] Comment on above: Performed By: #### C LISA, BMP #### [facility] ([id number]) [address] [place] [address] 53991 Monocytes (Bld) [#/Vol] 1.0 10*3/uL High 0-0.9 [facility] Comment on above: Performed By: #### C LISA, BMP #### [facility] ([id number]) [address] [place] [address] 83540 Monocytes/100 WBC (Bld) 7.8 % Normal [facility] Comment on above: Performed By: #### C LISA, BMP #### [facility] ([id number]) [address] [place] [address] 77893 Neutrophils/100 WBC (Bld) 80.5 % Normal [facility] Comment on above: Performed By: #### C LISA, BMP #### [facility] ([id number]) [address] [place] [address] 87842 Platelet mean volume (Bld) [Entitic vol] 9.1 fL Normal 7-12 [facility] Comment on above: Performed By: #### C LISA, BMP #### [facility] ([id number]) [address] [place] [address] 85724 Platelets (Bld) [#/Vol] 278 10*3/uL Normal 150-450 [facility] Comment on above: Performed By: #### C LISA, BMP #### [facility] ([id number]) [address] [place] [address] 09445 RBC COUNT 4.40 X10E12/L Normal 3.80-5.20 [facility] Comment on above: Performed By: #### C LISA, MARIA E #### [facility] ([id number]) [address] [place] [address] WBC (Bld) [#/Vol] 12.7 10*3/uL High 4.0-11.0 [facility] Comment on above: Performed By: #### C LISA, MARIA E #### [facility] ([id number]) [address] [place] [address] CT ABDOMEN AND PELVIS W CONT on [...] Carrillo MD on 05/14/2024 9:45 AM Normal [facility] HCG ( test) Ql (U)o n 05-14-2024 Beta HCG ( test) Ql (U) Negative Normal NEG [facility] Comment on above: Performed By: #### 2 106-3 #### [facility] ([id number]) [address] [place] [address]7026 URN MACROSCOPIC NURon 2023 BILIRUBIN JOAN Negative Normal NEG [facility] Comment on above: Performed By: #### N UM #### [facility] ([id number]) [address] [place] [address]248 BLOOD/HGB JOAN Trace Abnormal NEG [facility] Comment on above: Performed By: #### N UM #### [facility] ([id number]) [address] [place] [address] [place] [address] GLUCOSE JOAN Negative Normal NEG [facility] Comment on above: Performed By: #### N UM #### [facility] ([id number]) [address] [place] [address] [place] [address] KETONES JOAN Negative Normal NEG [facility] Comment on above: Performed By: #### N UM #### [facility] ([id number]) [address] [place] [address] [place] [address] LEUKOCYTE ESTERASE JOAN Negative Normal NEG [facility] Comment on above: Performed By: #### N UM #### [facility] ([id number]) [address] [place] [address] [place] [address] NITRITE JOAN Negative Normal NEG [facility] Comment on above: Performed By: #### N UM #### [facility] ([id number]) [address] [place] [address] [place] [address] PH JOAN 7.0 Normal 5.0-8.5 [facility] Comment on above: Performed By: #### N UM #### [facility] ([id number]) [address] [place] [address] PROTEIN JOAN Negative Normal NEG [facility] Comment on above: Performed By: #### N UM #### [facility] ([id number]) [address] [place] [address] SPECIFIC GRAVITY JOAN 1.010 Normal 1.003-1.035 [facility] Comment on above: Performed By: #### N UM #### [facility] ([id number]) [address] [place] [address] UROBILINOGEN JOAN 0.2 eu/dL Normal <1.1 [facility] Comment on above: Performed By: #### N UM #### [facility] ([id number]) [address] [place] [address] US PELVIS AND TRANSVAGon US PELVIS AND [...] to suggest ovarian dermoid. Electronically authenticated by: CHOCO GARCIA Date: 2022-09-22 23:44 Normal [facility] PAP ACOG PANEL 2: 30 to 65on 05-24-2022 . . Normal [facility] Comment on above: Result Comment: Perf ormed at: WB Performed By: #### [id number] #### [facility] [address] [place] [address] Dr. Dali Lamar Age Gdln ACOG Testing 30-65 Normal [facility] Comment on above: Performed By: #### [id number] #### [facility] [address] [place] [address] Dr. Dali Lamar DIAGNOSIS: Comment Normal [facility] Comment on above: Result Comment: NEGA TIVE FOR INTRAEPITHELIAL LESION OR MALIGNANCY. Performed at: WB Performed By: #### 4 [id number] #### [facility] [address] [place] [address] Dr. Dali Lamar HPV Aptima Negative Normal Negative [facility] Comment on above: Result Comment: This nucleic acid amplification test detects fourteen high-risk HPV types (16,18,31,33,35,39,45,51,52,56,58,59,66,68) without differentiation. Performed at: =G Performed By: #### 4 [id number] #### [facility] [address] [place] [address] Dr. Dali Lamar Methodology: Comment [facility] Comment on above: Result Comment: This liquid based ThinPrep(R) pap test was screened with the use of an image guided system. Performed at: WB Performed By: #### 4 [id number] #### [facility] [address] [place] [address] Dr. Dali Lamar Note: Comment Normal [facility] Comment on above: Result Comment: The Pap smear is a screening test designed to aid in the detection of premalignant and malignant conditions of the uterine cervix. It is not a diagnostic procedure and should not be used as the sole means of detecting cervical cancer. Both false-positive and false-negative reports do occur. . Performed at: WB Performed By: #### 4 [id number] #### [facility] [address] [place] [address] Dr. Dali Lamar Performed by: Comment Normal [facility] Comment on above: Result Comment: Mark Ambriz, Rider Ticket Worker (ASCP) Performed at: WB Performed By: #### [id number] #### [facility] [address] [address] [address] Dali Lamar Specimen adequacy: Comment Normal [facility] Comment on above: Result Comment: Sati sfactory for evaluation. Endocervical and/or squamous metaplastic cells (endocervical component) are present. Performed at: WB Performed By: #### [id number] #### [facility] [address] [address] [address] Dali Lamar MG MAMM SCREEN 3D SHAHIDA CADon 05-12-2022 MG MAMM SCREEN 3D SHAHIDA CAD Patient: KIMBERLY RASHEED Exam Date: 05/12/2022 : 1980 Gender:F Ordering : DR ERIC NAVARRETE . Admission #: [id number] Family : Order #: [id number] CLICK HERE TO VIEW EXAM RADIOLOGY REPORT [...] thyroid cancer at age 64. LOCATION: [facility] BREAST COMPOSITION: Scattered areas fibroglandular density. [...] PALPABLE LUMP SHOULD BE BIOPSIED. Dictated by: Choco Garcia M.D. on 05/12/2022 at 13:21 Approved by: Choco Garcia M.D. on 05/12/2022 at 13:22 Normal [facility] HCG,Urineon 01-23-2021 Beta HCG ( test) Ql (U) Negative Normal [facility] Comment on above: Result Comment: PERF ORMED BY: [address] [place] [id number] PATHOLOGIST M48 M60 ARMOR CREWMAN CLARICE FLORES M.D. Performed By: #### U [facility] #### [place] [id number] [facility] 01-23-2021 L - -------- Specimen: [id number] Received: 01/23/21 Status: JEREL Jean Num: [id number] Spec Type: Surgical Subm Dr: Rober Goode Jr, Tissues: A Colon Biopsy (COLON BX) Procedures: HE Stain/2, Gross/Micro L4 -------- Patient Age/Sex Location Account Attending Physician -------- Kimberly Rasheed/F [id number] Rober Goode Jr, -------- SPEC NUM: RECD: 01/23/21 STATUS: JEREL JEAN NUM: [id number] MAIDA: 01/23/21 [facility] DR: Rober Goode Jr, DO ENTERED: 01/23/21 [facility] DR: SPEC TYPE: Surgical DEPT: S ORDERED: HE Stain/2, [...] Entirely submitted in one cassette labeled A1. (/YJ) Microscopic Description Two glass slides with H E stained material have been examined. The microscopic findings support the above pathologic diagnosis. CPT Codes 97655 -------- -------- Specimen: Received: 01/23/21 Status: JEREL Jean Num: [id number] Spec Type: Surgical Subm Dr: Rober Goode Jr, DO Tissues: A Colon Biopsy (COLON BX) Procedures: HE Stain/2, Gross/Micro L4 -------- Patient: Kimberly Rasheed [id number] (Continued) -------- Signed (signature on file) Mayo Palafox MD 01/26/21 1540 Normal [facility] COVID-19 [facility] 01-21-2021 SARS-CoV-2 (COVID-19) RNA CHARLY+probe Ql (Unsp spec) Negative Normal Negative [facility] Comment on above: Order Comment: Healt hcare Worker?: N Result Comment: Refe rence: Negative Testing for SARS-CoV-2 by RT-PCR This test was developed and its performance characteristics determined by [employer]) and validated at the [facility]. This test has not been FDA cleared [...] is terminated or revoked sooner. PERFORMED BY: [facility] [address] [place] [address] PATHOLOGIST M48 M60 ARMOR CREWMAN CLARICE FLORES M.D. Performed By: #### C OVID-19 [facility] #### [facility] [address] [id number] [facility] COVID-19 Positive/Negativeon 01-21-2021 COVID-19 Positive/Negative Negative Negative [facility] Comment on above: Reference: NegativeT esting for SARS-CoV-2 by RT-PCRThis test was developed and its performance characteristics determined by [employer] ([employer]) and validated at the [facility]. This test has not been FDA cleared [...] terminated or revoked sooner. Otheron 01-21-2021 Coronavirus 2019 PCR Interp N/A [facility] Vital Signs Date Time Vital Sign Value Performing Clinician Facility 05-06-2025 09:20-0400 Body height 160 cm Antoinette JONES-C [facility] 05-06-2025 09:20-0400 Body mass index (BMI) [Ratio] 39.25 kg/m2 Antoinette Russ PA-C [facility] 05-06-2025 09:20-0400 Body weight 100.52 kg Antoinette JONES-C Work Phone: [facility] 05-06-2025 09:20-0400 Diastolic blood pressure 72 mm[Hg] Antoinette Pruittl PA-C Work Phone: [facility] 05-06-2025 09:20-0400 Heart rate 57 /min Antoinette Schrinel PA-C Work Phone: [facility] 05-06-2025 09:20-0400 Systolic blood pressure 120 mm[Hg] Antoinette Schrinel PA-C Work Phone: [facility] 04-18-2025 08:35-0400 Body height 160 cm Cira Villegas PA Work Phone: [facility] 04-18-2025 08:35-0400 Body mass index (BMI) [Ratio] 38.44 kg/m2 Cira Mcgovernenberg PA Work Phone: [facility] 04-18-2025 08:35-0400 Body weight 98.43 kg Cira Nienberg PA Work Phone: [facility] 04-18-2025 08:35-0400 Diastolic blood pressure 78 mm[Hg] Cira Nienberg PA Work Phone: [facility] 04-18-2025 08:35-0400 Heart rate 82 /min Cira Nienberg PA Work Phone: [facility] 04-18-2025 08:35-0400 Respiratory rate 18 /min Cira Nienberg PA Work Phone: [facility] 04-18-2025 08:35-0400 SaO2% (BldA) [Mass fraction] 100 % Cira Nienberg PA Work Phone: [facility] 04-18-2025 08:35-0400 Systolic blood pressure 113 mm[Hg] Cira Nienberg PA Work Phone: [facility] 03-05-2025 15:00-0400 Diastolic blood pressure 82 mm[Hg] Cira Nienberg PA Work Phone: [facility] 03-05-2025 15:00-0400 Heart rate 78 /min Cira Nienberg PA Work Phone: [facility] [employer] [facility] 03-05-2025 15:00-0400 Respiratory rate 18 /min Cira Nienberg PA Work Phone: [facility] 03-05-2025 15:00-0400 SaO2% (BldA) [Mass fraction] 99 % Cira Nienberg PA Work Phone: [facility] 03-05-2025 15:00-0400 Systolic blood pressure 135 mm[Hg] Cira Nienberg PA Work Phone: [facility] [employer] [facility] 01-24-2025 09:59-0400 Diastolic blood pressure 80 mm[Hg] Cira Nienberg PA Work Phone: [facility] [employer] [facility] 01-24-2025 09:59-0400 Heart rate 67 /min Cira Nienberg PA Work Phone: [facility] [employer] [facility] 01-24-2025 09:59-0400 Respiratory rate 18 /min Cira Nienberg PA Work Phone: [facility] [employer] 01-24-2025 09:59-0400 SaO2% (BldA) [Mass fraction] 100 % Cira Nienberg PA Work Phone: [facility] [employer] [facility] 01-24-2025 09:59-0400 Systolic blood pressure 119 mm[Hg] Cira Nienberg PA Work Phone: [facility] [employer] [facility] 01-10-2025 12:12-0400 Body height 160 cm Antoinette Quintanarinel PA-C Work Phone: [email or web address] 01-10-2025 12:12-0400 Body mass index (BMI) [Ratio] 37.07 kg/m2 Antoinette Schrinel PA-C Work Phone[facility] 01-10-2025 12:12-0400 Body weight 94.89 kg Antoinette Quintanarinel PA-C Work Phone: [facility] 01-10-2025 12:12-0400 Diastolic blood pressure 76 mm[Hg] Antoinette Pruittl PA-C Work Phone: [facility] 01-10-2025 12:12-0400 Systolic blood pressure 123 mm[Hg] Antoinette Pruittl PA-C Work Phone: [facility] 12-04-2024 14:58-0500 Diastolic blood pressure 76 mm[Hg] Cira Villegas PA Work Phone: [facility] 12-04-2024 14:58-0500 Heart rate 83 /min Cira Villegas PA Work Phone: [facility] 12-04-2024 14:58-0500 Respiratory rate 20 /min Cira Villegas PA Work Phone: [facility] 12-04-2024 14:58-0500 SaO2% (BldA) [Mass fraction] 100 % Cira Villegas PA Work Phone: [facility] 12-04-2024 14:58-0500 Systolic blood pressure 121 mm[Hg] Cira Villegas PA Work Phone: [facility] 10-16-2024 15:11-0500 Diastolic blood pressure 83 mm[Hg] Yulia Nienberg ELECTROENCEPHALOGRAPHIC TECHNOLOGIST-POLICY SPECIALIST Work Phone: [facility] 10-16-2024 15:11-0500 Heart rate 79 /min Yulia Nienberg ELECTROENCEPHALOGRAPHIC TECHNOLOGIST-POLICY SPECIALIST Work Phone: [facility] 10-16-2024 15:11-0500 Respiratory rate 18 /min Yulia Nienberg ELECTROENCEPHALOGRAPHIC TECHNOLOGIST-POLICY SPECIALIST Work Phone: [facility] 10-16-2024 15:11-0500 SaO2% (BldA) [Mass fraction] 100 % Yulia Nienberg ELECTROENCEPHALOGRAPHIC TECHNOLOGIST-POLICY SPECIALIST Work Phone: [facility] 10-16-2024 15:11-0500 Systolic blood pressure 132 mm[Hg] Yulia Villegas ELECTROENCEPHALOGRAPHIC TECHNOLOGIST-POLICY SPECIALIST Work Phone: [facility] 10-12-2024 08:06-0500 Body mass index (BMI) [Ratio] 36.67 kg/m2 Rober Juares MD Work Phone: [facility] 10-12-2024 08:06-0500 Body weight 93.89 kg Rober Juares MD Work Phone: [facility] 10-12-2024 08:06-0500 Diastolic blood pressure 70 mm[Hg] Rober Juares MD Work Phone: [facility] 10-12-2024 08:06-0500 Heart rate 80 /min Rober Juares MD Work Phone: [facility] 10-12-2024 08:06-0500 Respiratory rate 16 /min Rober Juares MD Work Phone: [facility] 10-12-2024 08:06-0500 Systolic blood pressure 102 mm[Hg] Rober Juares MD Work Phone: [facility] 08-13-2024 10:11-0500 Body height 160 cm Eric Rosalba DO Work Phone: [facility] 08-13-2024 10:11-0500 Body mass index (BMI) [Ratio] 36.85 kg/m2 Eric Rosalba DO Work Phone: [facility] 08-13-2024 10:11-0500 Body weight 94.35 kg Eric Rosalba DO Work Phone: [facility] 08-13-2024 10:11-0500 Diastolic blood pressure 84 mm[Hg] Eric Rosalba DO Work Phone: [facility] 08-13-2024 10:11-0500 Systolic blood pressure 122 mm[Hg] Eric Rosalba DO Work Phone: [facility] Healthcare Encounters Encounter Date Encounter Type Care Provider Facility Start: 05-14-2025 End: 05-14-2025 Refill Ebany Walpole [facility] Comment on above: Gastroesophageal ref lux disease without esophagitis Start: 05-08-2025 ambulatory [facility] Start: 05-06-2025 End: 05-06-2025 Office outpatient visit 25 minutes Antoinette Russ PA-C Work Phone: [facility] Comment on above: Diarrhea, unspecifie d type (Primary Dx); Gastroesophageal reflux disease without esophagitis Start: 05-06-2025 End: 05-06-2025 ambulatory [facility] Start: 04-18-2025 End: 04-18-2025 Office outpatient visit 15 minutes Cira JONES Work Phone: [facility] Comment on above: Lumbosacral spondylo sis without myelopathy (Primary Dx) Start: 04-18-2025 End: 04-18-2025 ambulatory [facility] Start: 04-05-2025 End: 04-05-2025 ambulatory MASOOD WRIGHT [facility] Start: 03-05-2025 End: 03-05-2025 Office outpatient visit 15 minutes Cira JONES Work Phone: [facility] Comment on above: Disorder of sacrum ( Primary Dx) Start: 03-05-2025 End: 03-05-2025 ambulatory [facility] Tammy [facility] Start: 01-24-2025 End: 01-24-2025 Office outpatient visit 15 minutes Cira JONES Work Phone: [facility] Comment on above: Lumbosacral spondylo sis without myelopathy (Primary Dx) Start: 01-24-2025 End: 01-24-2025 ambulatory [facility] Start: 01-10-2025 End: 01-10-2025 Office outpatient visit 25 minutes Antoinette Quintanarinel PA-C Work Phone: [facility] Comment on above: Diarrhea, unspecifie d type (Primary Dx) Start: 01-10-2025 End: 01-10-2025 [facility] Start: 12-28-2024 End: 12-28-2024 ambulatory MASOOD WRIGHT [facility] Start: 12-04-2024 End: 12-04-2024 Office outpatient visit 15 minutes Cira Villegas PA Work Phone: [facility] Comment on above: Disorder of sacrum ( Primary Dx) Start: 12-04-2024 End: 12-04-2024 ambulatory CIRA Munoz [facility] Start: 10-31-2024 End: 10-31-2024 Orders Only Antoinette Quintanarinel PA-C Work Phone: [facility] Comment on above: Elevated fecal calpr otectin (Primary Dx) Start: 10-27-2024 End: 10-27-2024 [facility] Start: 10-26-2024 End: 10-26-2024 [facility] Start: 10-25-2024 End: 10-25-2024 Orders Only Antoinette Quintanarinel PA-C Work Phone: [facility] Comment on above: Diarrhea, unspecifie d type (Primary Dx) Start: 10-16-2024 End: 10-16-2024 Office outpatient visit 15 minutes Yulia Villegas ELECTROENCEPHALOGRAPHIC TECHNOLOGIST-POLICY SPECIALIST Work Phone: [facility] Comment on above: Disorder of sacrum ( Primary Dx) Start: 10-16-2024 End: 10-16-2024 ambulatory YULIA VILLEGAS [facility] Start: 10-12-2024 End: 10-12-2024 ambulatory ROBER Gilman [facility] Start: 10-12-2024 End: 10-12-2024 Office outpatient visit 25 minutes Rober Juares MD Work Phone: [facility] Comment on above: Gastroesophageal ref lux disease without esophagitis (Primary Dx); Diverticulitis Start: 09-21-2024 End: 09-21-2024 ambulatory MASOOD WRIGHT [facility] Start: 08-28-2024 End: 08-28-2024 ambulatory YULIA VILLEGAS [facility] Start: 08-13-2024 End: 08-13-2024 Bamboo flowsheet Eric Rosalba DO Work Phone: [facility] Start: 08-13-2024 End: 08-22-2024 Bamboo flowsheet Eric Rosalba DO Work Phone: [facility] Start: 08-13-2024 End: 08-22-2024 Clinisync Result Encounter Eric Rosalba DO Work Phone: [facility] Unsolicited Start: 08-13-2024 End: 08-13-2024 Patient encounter procedure Eric Rosalba DO Work Phone: [facility] Start: 08-13-2024 End: 08-13-2024 Periodic preventive med est patient 40-64yrs Eric Rosalba DO Work Phone: [facility] Comment on above: Well woman exam with routine gynecological exam Start: 08-13-2024 End: 08-13-2024 ambulatory ERIC ROSALBA Not Available Start: 06-27-2024 End: 06-27-2024 ambulatory [facility] Start: 06-27-2024 End: 06-27-2024 ambulatory [facility] Start: 05-24-2024 End: 05-24-2024 ambulatory ROBER Gilman [facility] Start: 05-14-2024 End: 05-15-2024 Emergency department patient visit VEGA ALONZO [facility] Start: 03-28-2024 End: 03-28-2024 [facility]ulatory [facility] Start: 02-03-2024 End: 02-03-2024 ambulatory ANTOINETTE RUSS [facility] Start: 12-02-2023 End: 12-02-2023 ambulatory ANTOINETTE RUSS [facility] Start: 11-09-2023 End: 11-09-2023 ambulatory ROBER Gilman [facility] Start: 09-22-2022 End: 09-23-[address] ERIC NAVARRETE Facility:[facility] Start: 05-19-2022 End: 05-19-[address] ERIC NAVARRETE Facility:[facility] Start: 05-12-2022 End: 05-13-[address] ERIC NAVARRETE Facility:[facility] Start: 01-21-2021 End: 01-21-2021 Patient encounter procedure Rober Goode -Loraine davidson Testing Procedures Date Procedure Procedure Detail Performing Clinician Start: 01-10-2025 Follow-up visit Follow-up ELIESER RUSS Start: 10-12-2024 Adult depression scr eening assessment Rober Juares MD Work Phone: Start: 08-13-2024 IGP,APTIMA HPV,AGE GDLN Eric Renteriao DO Work Phone: Start: 08-13-2024 Microscopic observat ion [Identifier] in Cervix by Cyto stain Eric Navarrete DO Work Phone: Start: 05-21-2024 Mammography Eric kumar DO Work Phone: Start: 02-03-2024 Follow-up visit Follow-up ELIESER RUSS Plan of Treatment Date Care Activity Detail Author Start: 08-13-2029 Screening for malignant neoplasm of cervix [facility] Start: 08-13-2027 Screening for malignant neoplasm of cervix Pap Smear [facility] Start: 05-06-2026 Adult BMI Screening Adult BMI Screen ing [facility] Start: 05-06-2026 Tobacco Screening Tobacco Screening [facility] Start: 04-18-2026 Adult BMI Screening Adult BMI Screen ing [facility] Start: 04-18-2026 Tobacco Screening Tobacco Screening [facility] Start: 03-05-2026 Tobacco Screening Tobacco Screening [facility] Start: 01-24-2026 Tobacco Screening Tobacco Screening [facility] Start: 01-10-2026 Adult BMI Screening Adult BMI Screen ing [facility] Start: 01-10-2026 Tobacco Screening Tobacco Screening [facility] Start: 12-04-2025 Tobacco Screening Tobacco Screening [facility] Start: 10-16-2025 Tobacco Screening Tobacco Screening [facility] Start: 10-12-2025 Adult BMI Screening Adult BMI Screen ing [facility] Start: 10-12-2025 Depression Screening Depression Scre ening [facility] Start: 09-21-2025 Tobacco Screening Tobacco Screening [facility] Start: 08-15-2025 End: 08-15-2025 Patient encounter procedure 08/15/2025 10:00 AM EST Office Visit [facility] [address] [place] [address] Eric Navarrete DO [address] [place] [address] [facility] Start: 06-27-2025 End: 06-27-2025 Patient encounter procedure 06/27/2025 3:00 PM EDT Office Visit [facility] [address] [place] [address] Cira Villegas, PA [address] [place] [address] [facility] Start: 06-27-2025 Adult BMI Screening Adult BMI Screen ing [facility] Start: 06-10-2025 Influenza vaccination Influenza Vacc ine [facility] Start: 05-24-2025 Depression Screening Depression Scre ening [facility] Start: 05-21-2025 Screening for malignant neoplasm of breast Mammogram [facility] Start: 05-06-2025 End: 05-06-2025 Patient encounter procedure 05/06/2025 9:30 AM EDT Office Visit [facility] [address] [facility] [address] [place] [address] Antoinette Russ PA-C [address] [facility] [address] [place] [address] [facility] Start: 04-18-2025 End: 04-18-2025 Patient encounter procedure 04/18/2025 8:30 AM EDT Office Visit [facility] [address] [place] [phone] Cira Villegas PA [address] [place], [place] [id number] [facility] Start: 04-02-2025 End: 04-02-2025 Patient encounter procedure 04/02/2025 9:15 AM EDT Office Visit [facility] [address] [place] [address] Cira Villegas PA [address] [place], [place] [id number] [facility] Start: 03-29-2025 End: 03-29-2025 Admission to same day surgery center 03/29/2025 7:15 AM EDT - 03/29/2025 7:23 AM EDT Surgery [facility] [address] [place] [address] Masood Wright MD [address] [place], [place] [id number] INJECTION BLOCK SACROILIAC JOINT [17016 (CPT )] [facility] Comment on above: INJECTION BLOCK SACR OILIAC JOINT [81197 (CPT )] Start: 03-29-2025 End: 03-29-2025 Inject si joint arthrgrphy&/anes/stero id w/luciano INJECTION BLOCK SACROILIAC JOINT Disorder of sacrum 03/29/2025 7:15 AM EDT [facility] Start: 03-29-2025 Subsequent hospital visit by physician 03/29/2025 7:15 AM EDT Hospital Encounter [facility] [address] [place] [address] Masood Wright MD [address] [place] [address] [facility] Start: 01-24-2025 End: 01-24-2025 Patient encounter procedure 01/24/2025 9:45 AM EDT Office Visit [facility] [address] [place] [address] Cira Villegas PA [address] [place] [address] [facility] Start: 01-10-2025 End: 01-10-2025 Patient encounter procedure 01/10/2025 12:30 PM EDT Office Visit [facility] [address] [place] [id number] Antoinette Russ, PA-C [address] [place] [address] [facility] Start: 12-28-2024 End: 12-28-2024 Admission to same day surgery center 12/28/2024 7:27 AM EDT - 12/28/2024 7:34 AM EDT Surgery [facility] [address] [place] [id number] Masood Wright MD [address] [place] [id number] INJECTION BLOCK SACROILIAC JOINT: right [33581 (CPT )] [facility] Comment on above: INJECTION BLOCK SACR OILIAC JOINT: right [94313 (CPT )] Start: 12-28-2024 End: 12-28-2024 Inject si joint arthrgrphy&/anes/stero id w/luciano INJECTION BLOCK SACROILIAC JOINT Disorder of sacrum 12/28/2024 7:27 AM EDT [facility] Start: 12-28-2024 Subsequent hospital visit by physician 12/28/2024 7:27 AM EDT Hospital Encounter [facility] [address] [place] [id number] Masood rWight MD [address] [place] [id number] [facility] Start: 10-25-2024 End: 10-25-2025 XR Abdomen AP X-ray abdomen ap 1 view Imaging Routine Diarrhea, unspecified type Expected: 10/25/2024, Expires: 10[facility] Comment on above: Expected: 10/25/2024 , Expires: 10/25/2025 Start: 10-16-2024 End: 10-16-2024 Patient encounter procedure 10/16/2024 3:15 PM EST Office Visit [facility] [address] [place] [phone] Yulia Villegas, ELECTROENCEPHALOGRAPHIC TECHNOLOGIST-POLICY SPECIALIST [address] [place] [id number] [facility] Start: 08-13-2024 End: 08-13-2024 Patient encounter procedure 08/13/2024 10:00 AM EST Office Visit [facility] [address] [place] [id number] Eric Navarrete, DO [address] [place] [address] Arrived [facility] Comment on above: Arrived Start: 06-10-2024 COVID-19 Vaccine () COVID-19 Vaccine () [facility] Start: 06-10-2024 Influenza vaccination Influenza Vacc ine (#1) [facility] Start: 09-24-2022 DTaP,Tdap and Td Vaccines (2 - Td or Tdap) DTaP,Tdap and Td Vaccines (2 - Td or Tdap) [facility] Start: 2010 Screening for malignant neoplasm of cervix [facility] Start: 2001 Screening for malignant neoplasm of cervix Pap Smear [facility] Start: 1998 Adult BMI Follow Up Plan Adult BMI Follow Up Plan [facility] End: 10-25-2025 C difficile by PCR C difficile by PCR Lab Routine Diarrhea, unspecified type 1 Occurrences starting 10/25/2024 until 10/25/2025 [facility] Comment on above: 1 Occurrences starti ng 10/25/2024 until 10/25/2025 End: 10-25-2025 Calprotectin, F Calprotectin, F Lab Routine Diarrhea, unspecified type 1 Occurrences starting 10/25/2024 until 10/25/2025 [facility] Comment on above: 1 Occurrences starti ng 10/25/2024 until 10/25/2025 End: 10-31-2025 Calprotectin, F Calprotectin, F Lab Routine Elevated fecal calprotectin 1 Occurrences starting 10/31/2024 until 10/31/2025 [facility] Work Phone: Comment on above: 1 Occurrences starti ng 10/31/2024 until 10/31/2025 End: 10-25-2025 GI Panel(stool pathogen panel) GI Panel(stool pathogen panel) Lab Routine Diarrhea, unspecified type 1 Occurrences starting 10/25/2024 until 10/25/2025 [facility] Comment on above: 1 Occurrences starti ng 10/25/2024 until 10/25/2025 THIN PREP TIS PAP AN D HR HPV DNA THIN PREP TIS PAP AND HR HPV DNA Pathology and Cytology Routine Well woman exam with routine gynecological exam Ordered: 08/13/2024 [facility] Work Phone: Comment on above: Ordered: 08/13/2024 Immunizations Immunization Date Immunization Notes Care Provider Jermain montanez 08-22-2024 influenza virus vaccine, unspecified formulation Antoinette Russ PA-C Work Phone: [facility] 08-01-2023 Seasonal, quadrivalent, recombinant, injectable influenza vaccine, preservative free Rober Juares MD Work Phone: [facility] 08-01-2023 influenza virus vaccine, unspecified formulation Ericrosalva Navarrete Work Phone: [facility] 07-30-2022 Seasonal, quadrivalent, recombinant, injectable influenza vaccine, preservative free Rober Juares MD Work Phone: [facility] 07-24-2021 Seasonal, quadrivalent, recombinant, injectable influenza vaccine, preservative free Rober Juares MD Work Phone: [facility] 07-11-2019 influenza, injectabl e, quadrivalent, contains preservative Rober Juares MD Work Phone: [facility] 07-11-2019 influenza, injectabl e, quadrivalent, preservative free Rober Juares MD Work Phone: [facility] 07-13-2018 influenza, injectabl e, quadrivalent, preservative free Rober Juares MD Work Phone: [facility] 09-24-2012 tetanus toxoid, reduced diphtheria toxoid, and acellular pertussis vaccine, adsorbed Rober Juares MD Work Phone: [facility] 05-07-2005 TD(adult) unspecifie d formulation Rober Juares MD Work Phone: [facility] Feast [facility] Payers Date Payer Category Payer Managed Care Other (unspecified) [employer] [place] [id number] 2021 Private Health Insurance [employer] [id number] 1980 Unknown [id number] 2.16.840.1.656186.3.579.2. 593 1980 Unknown [id number] 2.16840.1.733743.3.579.2. 593 1980 Unknown [id number] 2.16.840.1.009284.3.579.2. 593 1980 Unknown [id number] 2.16.840.1.490524.3.579.2. 1259 1980 Unknown [id number] 2.16.840.1.766832.3.579.2. 1285 1980 Unknown [id number] 2.16.840.1.476878.3.579.2. 1285 1980 Unknown [id number] 2.16840.1.219040.3.579.2. 1285 1980 Unknown [id number] 2.16.840.1.708381.3.579.2. 1285 1980 Unknown [id number] 2.16840.1.393154.3.579.2. 1285 1980 Unknown [id number] 2.16840.1.924373.3.579.2. 1285 1980 Unknown [id number] 2.840.1.969109.3.579.2. 1285 1980 Unknown [id number] 2.840.1.152467.3.579.2. 1285 1980 Unknown [id number] 2.840.1.233858.3.579.2. 1285 1980 Unknown [id number] 2.840.1.618077.3.579.2. 1285 1980 Unknown [id number] 2.16840.1.070814.3.579.2. 1285 1980 Unknown [id number] 2.840.1.862983.3.579.2. 1285 1980 Unknown [id number] 2.840.1.731368.3.579.2. 1285 1980 Unknown [id number] 2.840.1.663936.3.579.2. 1285 1980 Unknown [id number] 2.16840.1.988099.3.579.2. 1285 1980 Unknown [id number] 2.16840.1.790220.3.579.2. 1285 1980 Unknown [id number] 2.16840.1.947889.3.579.2. 1286 1980 Unknown [id number] 2.16.840.1.407486.3.579.2. 6 1980 Unknown [id number] 2.16.840.1.091345.3.579.2. 1286 1980 Unknown [id number] 2.16.840.1.813413.3.579.2. 1285 1980 Unknown [id number] 2.16.840.1.285879.3.579.2. 1286 1980 Unknown [id number] 2.16.840.1.282071.3.579.2. 1285 1980 Unknown [id number] 2.16.840.1.355165.3.579.2. 1285 1980 Unknown [id number] 2.16.840.1.559882.3.579.2. 1285 1980 Unknown [id number] 2.16.840.1.845193.3.579.2. 1285 1980 Unknown [id number] 2.16.840.1.621280.3.579.2. 1285 1980 Unknown [id number] 2.16.840.1.966773.3.579.2. 6 1959 Unknown [id number] Self-pay Self Pay [id number] Social History Date Type Detail Facility Tobacco smoking stat [facility] Unknown if ever smoked [facility] Start: 1980 Sex Assigned At Female [facility] Tobacco smoking stat [facility] Tobacco smoking consumption unknown [facility] Start: 1980 Sex assigned at Not on file [facility] Start: 10-27-2020 End: 08-13-2024 Gender identity Not on file [facility] Start: 08-12-2022 End: 08-13-2024 Tobacco smoking status [place] Never smoked tobacco [facility] Start: 08-12-2022 End: 08-13-2024 Tobacco use and exposure Smokeless tobacco non-user [facility] Start: 08-13-2024 Alcoholic beverage intake Lifetime non-drinker (finding) [facility] Start: 10-27-2020 End: 08-13-2024 History of Social function [facility] Start: 10-12-2024 End: 05-06-2025 Alcoholic beverage intake Current non-drinker of alcohol (finding) [facility] How hard is it for y ou to pay for the very basics like food, housing, medical care, and heating Not hard at all [facility] Start: 05-15-2015 Sex Female (finding) [facility] Start: 08-13-2022 Sexual orientation Heterosexual (finding) [facility] Goals Date Patient Goal Desired Activity /State Clinical Notes 08-13-2024 to 05-06-2025 Antoinette Russ PA-C - 05/06/2025 9:30 AM EDTPatient InstructionsKAREN Domingo - 04/18/2025 8:30 AM KAREN Ernandez - 03/05/2025 3:00 PM EDTPatient Instructions Note Date & Type Note Facility 05-06-2025 History of Presen t illness Narrative [facility] Follow Up Visit CHIEF COMPLAINT: Chief Complaint Patient presents with Follow-up Patient is here today for a follow up on diarrhea and reflux. Patient states she stop eating gluten and her diarrhea has stopped Heartburn Diarrhea HISTORY OF PRESENT ILLNESS: Kimberly Rsaheed is a 44 y.o. female who has a PMH of GERD who presents today for a return visit for follow-up. She is an established patient of myself and Dr. Muse, last seen in January 2025. Patient notes her GERD symptoms are well controlled on Nexium 20 mg once with appropriate timing and Pepcid 20mg prior to dinner. She denies breakthrough symptoms. She began having an alternating bowel pattern in 09/2024. 10/26/2024 KUB showed moderate stool burden. 10/2024 C difficile, GI panel were unremarkable, fecal calprotectin mildly elevated at 69.2. She would have random episodes of diarrhea every 2-4 weeks . She elected to try a low FODMAP diet first, declined CLN. With following low FODMAP diet, she was found to have symptoms when eating gluten. Since going gluten-free, her bowel pattern has entirely resolved. She is now having BSS type 4 bowel movement daily without difficulty. At this time, she would like to continue gluten free diet and hold off on challenge followed by celiac markers EGD to rule out celiac disease versus gluten intolerance. She is aware that if she has celiac disease in his ingesting gluten that she would be at increased risk of small bowel cancer. At this time, she has no plans to reintegrate gluten into her diet. Denies associated symptoms, other GI symptoms or alarm features. Denies tobacco use, marijuana use, illicit drug use, persistent NSAID use, persistent alcohol use. Weight 05/06/25 0920 100.5 kg (221 lb 9.6 oz) 04/18/25 0835 98.4 kg (217 lb) 01/10/25 1212 94.9 kg (209 lb 3.2 oz) 10/12/24 0806 93.9 kg (207 lb) 06/27/24 0753 94.3 kg (208 lb) 05/24/24 0910 93.9 kg (207 lb) PREVIOUS ENDOSCOPIC PROCEDURES: 08/13/[address] Muse -- MAC sedation. Performed due to screening for Jennings's [...] identified. 01/23/[address] Goode -- MAC sedation. Performed due to GERD. GERD without esophagitis. 01/23/[address] Goode -- MAC sedation. Performed due to diarrhea and IBS. Normal colonoscopy to terminal ileum, random colon biopsies obtained to rule out microscopic colitis. PREVIOUS IMAGIN10/26/2024 KUB Moderate stool burden. 05/14/2024 CT AP with contrast Constellation of imaging findings most suggestive sigmoid diverticulitis. 11/06/2023 CT AP without contrast A few scattered [...] vomiting. Skin: Negative for color change. ALLERGIES: Ciprofloxacin and Metronidazole Current Medications: Current Outpatient Medications: esomeprazole (NexIUM) 20 mg capsule, Take 1 capsule (20 mg total) by mouth every morning before breakfast. One tablet daily, Disp: 90 capsule, Rfl: 3 famotidine (PEPCID) 20 mg tablet, Take 1 tablet (20 mg total) by mouth 2 (two) times a day. (Patient taking differently: Take 1 tablet (20 mg total) by mouth as needed for heartburn.), Disp: 60 tablet, Rfl: 1 fexofenadine-pseudoephedrine (RUBINA-D 12 HOUR) 60-120 mg per 12 hr tablet, Take 1 tablet by mouth as needed for allergies., Disp: 60 tablet, Rfl: 2 fluticasone propionate (FLONASE) 50 mcg/actuation nasal spray, [...] muscle spasms. (Patient not taking: Reported on 05/06/2025), Disp: 45 tablet, Rfl: 3 I reviewed and reconciled this patient's medication list today. The list included in this note is the most up to date list that I can attest to at this time based on the information that the patient has provided me and the electronic medical record. PAST MEDICAL, SOCIAL AND FAMILY HISTORY: Past Medical History: Past Medical History: Diagnosis Date Acid reflux Chronic pain disorder Diverticulitis Low back pain Seasonal allergies Past Surgical History: Past Surgical History: Procedure Laterality Date COLONOSCOPY ESOPHAGOGASTRODUODENOSCOPY w bx & polypectomy N/A 08/13/2022 Performed by Marii Hood MD at [facility] ENDOSCOPY INJECTION BLOCK SACROILIAC JOINT Right 04/05/2025 Performed by Masood Wright MD at [facility] INJECTION BLOCK SACROILIAC JOINT Right 12/28/2024 Performed by Masood Wright MD at [facility] INJECTION BLOCK SACROILIAC JOINT Right 09/21/2024 Performed by Masood Wright MD at [facility] INJECTION BLOCK SACROILIAC JOINT Right 04/06/2024 Performed by Masood Wright MD at [facility] INJECTION BLOCK SACROILIAC JOINT Right 02/24/2024 Performed by Masood Wright MD at [facility] WISDOM TOOTH EXTRACTION 1996 Family History: Family History Problem Relation Age of Onset Diabetes Mother Heart failure Mother Thyroid cancer Mother Hypertension Father Aortic aneurysm Father Colon cancer Maternal Uncle Inflammatory bowel disease Neg Hx Celiac disease Neg Hx SOCIAL HISTORY: Social History Tobacco Use Smoking status: Never Smokeless tobacco: Never Vaping Use Vaping status: Never Used Substance Use Topics Alcohol use: No Drug use: No PHYSICAL EXAM: BP 120/72 Pulse 57 Ht 160 cm (5' 3 ) Wt 100.5 kg (221 lb 9.6 oz) BMI 39.25 kg/m Body mass index is 39.25 kg/m . Physical Exam Constitutional: General: She is not in acute distress. Appearance: She is not toxic-appearing. Eyes: General: No scleral icterus. Abdominal: General: Bowel sounds are normal. There is no distension. Palpations: Abdomen is soft. Tenderness: There is no abdominal tenderness. There is no guarding or rebound. Skin: Coloration: Skin is not jaundiced or pale. Neurological: Mental Status: She is alert. Psychiatric: Mood and Affect: Mood normal. Behavior: Behavior normal. DATA: CBC: Lab Results Component Value Date WBC 12.7 (H) 05/14/2024 HGB 13.2 05/14/2024 HCT 40.2 05/14/2024 MCV 91 05/14/2024 RDW 13.3 05/14/2024 PLT 278 05/14/2024 CMP: Lab Results Component Value Date K 3.4 (L) 05/14/2024 CL 102 05/14/2024 CO2 25 05/14/2024 BUN 10 05/14/2024 GLU 74 05/14/2024 FOLATE: No results found for: FOLATE HgBA1c: No results found for: HGBA1C Iron Studies: No results found for: FE , TIBC , FERRITIN PT/INR: No results found for: INR TSH: No results found for: TSH VITAMIN B12: No components found for: B12 25 Hydroxy Vitamin D Level: No components found for: VITDTOTAL DIAGNOSTIC STUDIES REVIEWED: As noted in the HPI ASSESSMENT AND PLAN: Kimberly Rasheed is a 44 y.o. female who has a PMH of GERD who presents today for a return visit for follow-up. GERD (well-controlled): Continue Nexium 20 mg once daily, 20-30 minutes prior to breakfast and dinner. Can use Pepcid 20 mg b.i.d. p.r.n. breakthrough acid reflux symptoms. Discussed anti-reflux measures. Consider pH impedance/manometry if symptoms recur. Diverticulitis (Resolved, dx 05/14/2024) / Alternating Bowel Pattern / Gluten Sensitivity vs Celiac Disease / Borderline Elevated Calpro: Resolved since going gluten-free. Patient has declined CLN and EGD/celiac markers following gluten-challenge. EGD in 2021 was neg for celiac disease. She would like to stick to strict gluten-free diet at this time. Again, she is aware that if she has celiac disease that gluten ingestion can increase risk for small bowel cancer. They are aware and verbalized understanding that without direct visualization via endoscopy that inflammation, ulcerations, masses/lesions that could be benign, precancerous or cancerous/malignant could remain undiagnosed. Repeat fecal calprotectin as previously ordered to assess for normalization. Further recommendations pending workup/therapy as planned. Patient is aware and agreeable to this plan. Patient is to follow-up in 3 months or sooner as needed. No orders of the defined types were placed in this encounter. Total time spent was 30 minutes: Preparing to see the patient (e.g., review of tests) Obtaining and/or reviewing separately obtained history Performing a medically appropriate examination and/or evaluation Counseling and educating the patient/family/caregiver Ordering medications, tests, or procedures ANTOINETTE RUSS PA-C [address], [place] [address] PH: [phone] Patient to follow with Antoinette Russ PA-C and Dr. Muse This note is dictated with the use of M*Modal.Please note that this dictation was completed with computer voice recognition software. Quite often unanticipated grammatical, syntax, homophones, and other interpretive errors are inadvertently transcribed by the computer software. Please disregard these errors. Please excuse any errors that have escaped final proofreading. Anotinette Russ PA-C 05/06/25 1017 documented in this encounter [facility] 05-06-2025 Instructions Antoinette Russ PA-C - 05/06/2025 9:30 AM EDT Continue gluten-free diet. Think about if you would like to do a gluten challenge followed by EGD and blood work to test for celiac disease/gluten allergy documented in this encounter [facility] 04-18-2025 History of Presen t illness Narrative [facility] [address] [place] [id number] Patient: Kimberly Rasheed Sex: female : 1980 Age: 44 y.o. PCP: DERICK TOLLIVER MD 04/18/2025 Kimberly Rasheed is here for a(n) post procedure follow up 04/05/2025 Right SI injection with 100% relief for 2 days with 50%-60% continued relief reported. Preop pain was 5/10 and patient had 0/10 for 2 days now only 1-3/10 intermittent pain reported.. . Date of onset of pain: chronic , pain has lasted greater than 3 months. Pain scale before treatment: 5/10 Pre-op pain score: 5/10 Post-op pain score: 5/10 2 hour post-op pain score: 1/10 4 hour post-op pain score: 0/10 Percentage and duration of relief after treatment: see above Pain scale after treatment: 1-3/10 (pain is intermittent) Chief Complaint Patient presents with Back Pain HPI: Physical Therapy at [facility]- approximately 11 sessions completed providing significant relief. First session November 23 2023. Last session January 12 2024. Pt did see [facility] Care Doctor- Graciela Bowser right SI joint injection on 02/24/2024 with 100% relief 04/06/2024 Right Sacroiliac Joint Injection with 90% relief continuing through July. Pre procedure pain 5/10. Post procedure pain 1/10 09/21/24 Right SI injection with 90% relief that continues 12/28/24 Right SI injection 50-60% continued relief 04/05/2025 Right SI injection with 100% relief for 2 days then 30% continued relief reported. Preop pain was 5/10 and patient had 0/10 for 2 days now only 1-3/10 intermittent pain reported. Back Pain This is a chronic (patient has had spasms in back on and off for 20 years- recently twisting during exercise and other activities has worsened. Flare up for the past month 07/2024) problem. The current episode started more than 1 year ago (11/06/2023, flare up pain returned 07/2024). The problem occurs intermittently. The problem has been gradually improving since onset. The pain is present in the gluteal (right hip/ buttock). The quality of the pain is described as aching. Radiates to: posterior thigh to just above knee. The pain is at a severity of 1/10 (can get up to 3/10). The pain is moderate. The pain is The same all the time (throughout the day pain can get worse with activity). The symptoms are aggravated by twisting (sitting, lifting, lying, twisting, pushing/pulling,). Stiffness is present All day (after prolonged sitting/laying). Associated symptoms include leg pain (right thigh immediately below buttocks posterior to just above knee). Pertinent negatives include no abdominal pain, bladder incontinence, bowel incontinence, chest pain, numbness, tingling or weakness. She has tried muscle relaxant, heat, home exercises and NSAIDs (Flexeril, Ibuprofen, Tylenol, heat w/ moderate relief; aspercream, essential oil/ Deep Blue rub w/ mild relief; ice/cold worsens) for the symptoms. The effect of pain on patient's ADLS: Moderate Impairment. Past Medical History: Diagnosis Date Acid reflux Chronic pain disorder Diverticulitis Low back pain Seasonal allergies Past Surgical History: Procedure Laterality Date COLONOSCOPY ESOPHAGOGASTRODUODENOSCOPY w bx & polypectomy N/A 08/13/2022 Performed by Marii Hood MD at [facility] ENDOSCOPY INJECTION BLOCK SACROILIAC JOINT Right 04/05/2025 Performed by Masood Wright MD at [facility] INJECTION BLOCK SACROILIAC JOINT Right 12/28/2024 Performed by Masood Wright MD at [facility] INJECTION BLOCK SACROILIAC JOINT Right 09/21/2024 Performed by Masood Wright MD at [facility] INJECTION BLOCK SACROILIAC JOINT Right 04/06/2024 Performed by Masood Wright MD at [facility] INJECTION BLOCK SACROILIAC JOINT Right 02/24/2024 Performed by Masood Wright MD at [facility] WISDOM TOOTH EXTRACTION 1996 Allergies Allergen Reactions Ciprofloxacin Metronidazole Family History Problem Relation Age of Onset Diabetes Mother Heart failure Mother Thyroid cancer Mother Hypertension Father Aortic aneurysm Father Colon cancer Maternal Uncle Inflammatory bowel disease Neg Hx Celiac disease Neg Hx Social History Socioeconomic History Marital status: Spouse name: Not on file Number of children: Not on file Years of education: Not on file Highest education level: Not on file Occupational History Not on file Tobacco Use Smoking status: Never Smokeless tobacco: Never Vaping Use Vaping status: Never Used Substance and Sexual Activity Alcohol use: No Drug use: No Sexual activity: Defer Other Topics Concern Not on file Social History Narrative Not on file Social Drivers of Health Financial Resource Strain: Low Risk (05/23/2023) Overall Financial Resource Strain (CARDIA) Difficulty of Paying Living Expenses: Not hard at all Food Insecurity: No Food Insecurity (04/18/2025) Hunger Screening Food Insecurity - Worry: Never True Food Insecurity - Inability: Never True Transportation Needs: No Transportation Needs (05/23/2023) PRAPARE - Transportation Lack of Transportation (Medical): No Lack of Transportation (Non-Medical): No Physical Activity: Not on file Stress: Not on file Social Connections: Not on file Interpersonal Safety: Not on file Housing Instability: Low Risk (05/23/2023) Housing Instability Housing Instability: No Review of Systems Constitutional: Negative. Negative for appetite change and chills. HENT: Negative. Negative for congestion. Eyes: Negative. Respiratory: Negative. Negative for cough and shortness of breath. Cardiovascular: Negative. Negative for chest pain. Gastrointestinal: Negative. Negative for abdominal pain and bowel incontinence. Endocrine: Negative. Genitourinary: Negative. Negative for bladder incontinence. Musculoskeletal: Positive for back pain. Negative for gait problem. Skin: Negative. Negative for rash and wound. Allergic/Immunologic: Negative. Neurological: Negative. Negative for tingling, weakness and numbness. Hematological: Negative. Does not bruise/bleed easily. Psychiatric/Behavioral: Negative. Negative for self-injury and suicidal ideas. Vital Signs: BP 113/78 Pulse 82 Resp 18 Ht 160 cm (5' 3 ) Wt 98.4 kg (217 lb) SpO2 100% BMI 38.44 kg/m Physical Exam: GENERAL - Healthy patient that appears stated age. HEENT - Normocephalic / Atraumatic, Extraoccular movements intact, trachea midline, thyroid within normal limits. CV - pulse regular, Warm extremities with appropriate color of nailbeds. RESP - No obvious wheezing, No Shortness of Breath, No overexertion response to exam maneuvers. COORDINATION - remains intact. PSYCH - Alert and Oriented x4, Attentive and appropriate, constitutionally normal, displays normal mood and affect per situation, answered questions appropriately during examination, demonstrated appropriate attention during discussion, demonstrated appropriate cognitive reasoning and understanding of the medical condition by asking appropriate questions regarding the diagnosis and risks/benefits/alternatives of treatment modalities. No obvious deficits in memory, reasoning, or intellect. Lumbar: SKIN - No rashes or bruising in the area of the patient s pain. LYMPH NODES - demonstrate no obvious enlargement. EXTREMITIES - Lower extremities are warm, with minimal edema and palpable pulses. Tenderness to palpation noted in the lumbar spine and paraspinal musculature. Pain is elicited with flexion, extension, and lateral rotation of the lumbar spine. Range of motion is diminished with these motions due to pain. Facet palpation is noted to be somewhat tender and facet loading maneuvers are mildly positive, but not concordant with the patient s normal pain complaints. STRENGTH - noted to be 5 out of 5 all muscle groups bilateral lower extremities including muscles involving hip flexion and abduction, knee flexion and extension, as well as foot dorsiflexion and plantarflexion. No notable atrophy, fasciculations or spasm. SENSORY - No notable sensory deficits in the bilateral lower extremities to touch or pinprick in all dermatomal distributions. Straight Leg Raise is negative bilaterally. Gait is normal. Assessment/Treatment Plan: Kimberly was seen today for back pain. Diagnoses and all orders for this visit: Lumbosacral spondylosis without myelopathy MONITOR Follow up Mid June The medications prescribed have been reviewed for medication interactions/contraindications and/or for upcoming procedures: continue current medication regimen without any changes. DISCUSSION: Treatment options discussed with patient and all questions answered to patient's satisfaction. Discussed the rules and regulations surrounding prescription of opioids and compliance at length. Failure to follow the rules and regulation will result in tapering and discontinuation of medications if applicable. Prescribed medication that requires intensive monitoring for toxicity We do not currently prescribe any controlled substance from this practice. It does appear that the patient benefited from the previous injection and the benefit has continued through this visit. At this time, we will monitor the patient s symptoms from an interventional standpoint and consider another injection in the future if the patient s symptoms return or intensify severely. The patient was made aware that they should call if symptoms worsen or if their pain begins to have a negative impact on their quality of life and activities of daily living again. The spine model was demonstrated and MRI was reviewed and used to explain the condition. Chronic conditions not treated during this visit that affected my overall medical decision making: Obesity OARRS: Reviewed. Scribe Statement: I, Galilea Larsen RN, scribed for and in the presence of KAREN DOMINGO who performed the above service. Galilea Larsen RN 04/18/25 0858 KAREN Domingo 04/18/25 1157 documented in this encounter [facility] 03-05-2025 History of Presen t illness Narrative [facility] [address] [place] [address] Patient: Kimberly Rasheed Sex: female : 1980 Age: 44 y.o. PCP: Rober Juares MD 03/05/2025 Kimberly Rasheed is here for a(n) follow up. Patient reports worsening pain to the right right buttock going down posterior thigh. Patient states she wakes up in the middle of the night due to pain. Currently rates pain a 2/10 and can get up to 5/10 with activity. Chief Complaint Patient presents with Back Pain HPI: Physical Therapy at [facility]- approximately 11 sessions completed providing significant relief. First session November 23 2023. Last session January 12 2024. Pt did see Spine Care Doctor- Graciela Bowser right SI joint injection on 02/24/2024 with 100% relief 04/06/2024 Right Sacroiliac Joint Injection with 90% relief continuing through July. Pre procedure pain 02/16. Post procedure pain 10/1909/21/24 Right SI injection with 90% relief that continues 12/28/24 Right SI injection 50-60% continued relief Back Pain This is a chronic (patient has had spasms in back on and off for 20 years- recently twisting during exercise and other activities has worsened. Flare up for the past month 07/2024) problem. Episode onset: 11/06/2023, flare up pain returned 07/2024. The problem occurs intermittently. The problem has been gradually worsening since onset. The pain is present in the gluteal (right hip/ buttock). The quality of the pain is described as aching. Radiates to: posterior right thigh immediately under buttocks to posterior right thigh. The pain is at a severity of 2/10 (can get up to 5/10). The pain is moderate. The pain is The same all the time (throughout the day pain can get worse with activity). The symptoms are aggravated by twisting (sitting, lifting, lying, twisting, pushing/pulling,). Stiffness is present All day (after prolonged sitting/laying). Associated symptoms include leg pain (right thigh immediately below buttocks). Pertinent negatives include no abdominal pain, bladder incontinence, bowel incontinence, chest pain, numbness, tingling or weakness. She has tried muscle relaxant, heat, home exercises and NSAIDs (Flexeril, Ibuprofen, Tylenol, heat w/ moderate relief; aspercream, essential oil/ Deep Blue rub w/ mild relief; ice/cold worsens) for the symptoms. The effect of pain on patient's ADLS: Moderate Impairment. Past Medical History: Diagnosis Date Acid reflux Diverticulitis Low back pain Seasonal allergies Past Surgical History: Procedure Laterality Date COLONOSCOPY ESOPHAGOGASTRODUODENOSCOPY w bx & polypectomy N/A 08/13/2022 Performed by Marii Hood MD at [facility] ENDOSCOPY INJECTION BLOCK SACROILIAC JOINT Right 12/28/2024 Performed by Masood Wright MD at [facility] INJECTION BLOCK SACROILIAC JOINT Right 09/21/2024 Performed by Masood Wright MD at [facility] INJECTION BLOCK SACROILIAC JOINT Right 04/06/2024 Performed by Masood Wright MD at [facility] INJECTION BLOCK SACROILIAC JOINT Right 02/24/2024 Performed by Masood Wright MD at [facility] WISDOM TOOTH EXTRACTION 1996 Allergies Allergen Reactions Ciprofloxacin Metronidazole Family History Problem Relation Age of Onset Diabetes Mother Heart failure Mother Thyroid cancer Mother Hypertension Father Aortic aneurysm Father Colon cancer Maternal Uncle Inflammatory bowel disease Neg Hx Celiac disease Neg Hx Social History Socioeconomic History Marital status: Spouse name: Not on file Number of children: Not on file Years of education: Not on file Highest education level: Not on file Occupational History Not on file Tobacco Use Smoking status: Never Smokeless tobacco: Never Vaping Use Vaping status: Never Used Substance and Sexual Activity Alcohol use: No Drug use: No Sexual activity: Defer Other Topics Concern Not on file Social History Narrative Not on file Social Drivers of Health Financial Resource Strain: Low Risk (05/23/2023) Overall Financial Resource Strain (CARDIA) Difficulty of Paying Living Expenses: Not hard at all Food Insecurity: No Food Insecurity (03/05/2025) Hunger Screening Food Insecurity - Worry: Never True Food Insecurity - Inability: Never True Transportation Needs: No Transportation Needs (05/23/2023) PRAPARE - Transportation Lack of Transportation (Medical): No Lack of Transportation (Non-Medical): No Physical Activity: Not on file Stress: Not on file Social Connections: Not on file Interpersonal Safety: Not on file Housing Instability: Low Risk (05/23/2023) Housing Instability Housing Instability: No Review of Systems Constitutional: Negative. Negative for appetite change and chills. HENT: Negative. Negative for congestion. Eyes: Negative. Respiratory: Negative. Negative for cough and shortness of breath. Cardiovascular: Negative. Negative for chest pain. Gastrointestinal: Negative. Negative for abdominal pain and bowel incontinence. Endocrine: Negative. Genitourinary: Negative. Negative for bladder incontinence. Musculoskeletal: Positive for back pain. Skin: Negative. Allergic/Immunologic: Negative. Neurological: Negative. Negative for tingling, weakness and numbness. Hematological: Negative. Psychiatric/Behavioral: Negative. Vital Signs: BP 135/82 (BP Site: Left Arm, BP Postition: Sitting) Pulse 78 Resp 18 SpO2 99% Physical Exam: GENERAL - Healthy patient that appears stated age. HEENT - Normocephalic / Atraumatic, Extraoccular movements intact, trachea midline, thyroid within normal limits. CV - pulse regular, Warm extremities with appropriate color of nailbeds. RESP - No obvious wheezing, No Shortness of Breath, No overexertion response to exam maneuvers. COORDINATION - remains intact. PSYCH - Alert and Oriented x4, Attentive and appropriate, constitutionally normal, displays normal mood and affect per situation, answered questions appropriately during examination, demonstrated appropriate attention during discussion, demonstrated appropriate cognitive reasoning and understanding of the medical condition by asking appropriate questions regarding the diagnosis and risks/benefits/alternatives of treatment modalities. No obvious deficits in memory, reasoning, or intellect. Lumbar: SKIN - No rashes or bruising in the area of the patient s pain. LYMPH NODES - demonstrate no obvious enlargement. EXTREMITIES - Lower extremities are warm, with minimal edema and palpable pulses. No significant tenderness to palpation noted in the lumbar spine and paraspinal musculature. Mild pain is elicited with flexion, extension, and lateral rotation of the lumbar spine. Range of motion is not diminished with these motions. Facet palpation is negative for significant pain and facet loading maneuvers elicit only mild pain that is not concordant with the patient s normal pain complaints. STRENGTH - noted to be 5 out of 5 all muscle groups bilateral lower extremities including muscles involving hip flexion and abduction, knee flexion and extension, as well as foot dorsiflexion and plantarflexion. No notable atrophy, fasciculations or spasm. SENSORY - No notable sensory deficits in the bilateral lower extremities to touch or pinprick in all dermatomal distributions. Straight Leg Raise is negative bilaterally. Tenderness to palpation is noted over the Right SacroIliac Joint: Fabere sign (Romario's Test) is significantly positive, as is compression and distraction of the sacroiliac joints, which is consistent with some of the patient's normal pain. Gait is normal. Assessment/Treatment Plan: Kimberly was seen today for back pain. Diagnoses and all orders for this visit: Disorder of sacrum - Case request operating room: INJECTION BLOCK SACROILIAC JOINT Right Sacroiliac Joint Injection - under fluoroscopy with the use of contrast dye (unless contraindicated) It is hopeful that the described procedure will provide symptomatic pain relief. It is felt to be medically necessary noting that the patient has tried and failed more conservative modalities of therapy and this is the next most appropriate step. The procedure was described in detail to the patient as well as the potential benefits of pain reduction alongside risks of the procedure and alternatives. Risks were described as including, but not limited to bleeding, infection, nerve damage, spinal cord injury, paralysis, stroke, dural puncture headache, and medication reaction. The patient expressed understanding regarding the risks and benefits and wishes to proceed. Follow up 2 weeks after procedure The medications prescribed have been reviewed for medication interactions/contraindications and/or for upcoming procedures: continue current medication regimen without any changes. DISCUSSION: Treatment options discussed with patient and all questions answered to patient's satisfaction. Discussed the rules and regulations surrounding prescription of opioids and compliance at length. Failure to follow the rules and regulation will result in tapering and discontinuation of medications if applicable. Prescribed medication that requires intensive monitoring for toxicity We do not currently prescribe any controlled substance from this practice. It is noted that the patient did have good response from the previously performed procedure. It is felt that the patient would benefit from an additional procedure of the same nature in that the same symptoms have returned. It is hopeful that this additional injection will provide additional benefit and duration when combined with the previous injection. The spine model was demonstrated and MRI was reviewed and used to explain the condition. Chronic conditions not treated during this visit that affected my overall medical decision making: Comorbidity- Obesity The patient does have a comorbid condition of obesity. This will be taken into account in that obesity will contribute to certain pain conditions. It can contribute to pain from degenerative disc disease as well as osteoarthritis of the joints. Many neuropathic symptoms are also amplified due to axial spine loading. Special benefits will also need to be given to procedures. Many procedures are technically more difficult in the light of severe obesity. I will also consider the possibility of undiagnosed obstructive sleep apnea (which often accompanies obesity) when prescribing any narcotic medications. I will weigh the risks and benefits and fully discuss them with the patient for these reasons. OARRS: Reviewed. Scribe Statement: I, Debbie Krueger CNA, scribed for and in the presence of KAREN DOMINGO who performed the above service. Debbie Krueger CNA 03/05/25 1519 KAREN Domingo 03/05/25 1522 documented in this encounter [facility] 03-05-2025 Instructions Debbie Krueger CNA - 03/05/2025 3:00 PM EDT Facet Injection / Medial Branch Block (MBB) / Sacroiliac (SI) Joint Injection / Cluneal NB A facet injection and sacroiliac joint injection are injections of local anesthetic and steroid into a joint in the spine. A medial branch block is similar, but the medication is placed outside the joint space near the nerve that supplies the joint called the medial branch (steroid may or may not be used). You may require multiple injections depending upon how many joints are involved. How Long Will This Procedure Last? The extent and duration of pain relief may depend on the amount of inflammation and how many areas are involved. Other coexisting factors may be responsible for your pain. If your pain goes away for a short time, but then returns, you may be a candidate for radiofrequency ablation (RFA). Activity Be active. Attempt activities and movements that typically cause pain to see if it feels better while doing them. We will give you a pain diary. Please fill this out as directed by your nurse in pre-op. This will help your doctor determine the effectiveness of the injection, and how to proceed. Bring the pain diary with you to your follow-up appointment. Medications You should not take your pain medications for 4-6 hours before or after the injection in order to properly diagnose if the injection provides adequate relief. Resume your routine medications after your procedure. You may resume blood thinners per your regular schedule after the procedure. If you received sedation: If you received sedation for your procedure, you may feel sleepy or not yourself for several hours today. For the next 24 hours avoid activities that requires alertness or coordination. This includes: Driving or operating heavy machinery Using power tools Consuming alcohol Do not make important or complex decisions or sign legal documents in the next 24 hours. Other Instructions: If you feel severe pain at the injection site with swelling and redness, increased leg weakness, a fever of 101 or higher, headache (or worsening headache), changes in vision or urinary retention: Please call the office at , or have someone take you to the nearest emergency room. Tell the emergency room staff that you recently had a spine injection. A doctor must evaluate you for bleeding and injection complications. If you lose control over bowel, bladder, or legs: Go to the nearest emergency room. [email or web address] History of Presen t illness Narrative [facility] [address] [place] [address] Patient: Kimberly Rasheed Sex: female : 1980 Age: 44 y.o. PCP: Rober Juares MD 01/24/2025 Kimberly Rasheed is here for a(n) post procedure follow up right SI injection 50-60% relief that continues . Patient has been on a gluten free diet for over a week now, and has noticed an improvement in her back pain. Currently rates pain a 1/10 and that is mainly to her right hip. Date of onset of pain: 11/06/23 , pain has lasted greater than 3 months. Pain scale before treatment: 5/10 Pre-op pain score: 4/10 Post-op pain score: 0/10 2 hour post-op pain score: 3/10 4 hour post-op pain score: 2/10 Percentage and duration of relief after treatment: 50-60% continued relief Pain scale after treatment: 10/19 Chief Complaint Patient presents with Back Pain HPI: Physical Therapy at [facility]- approximately 11 sessions completed providing significant relief. First session November 23 2023. Last session January 12 2024. Pt did see Spine Care Doctor- Graciela Bowser right SI joint injection on 02/24/2024 with 100% relief 04/06/2024 Right Sacroiliac Joint Injection with 90% relief continuing through July. Pre procedure pain /10. Post procedure pain 10/1909/21/24 Right SI injection with 90% relief that continues 12/28/24 Right SI injection 50-60% continued relief Back Pain This is a chronic (patient has had spasms in back on and off for 20 years- recently twisting during exercise and other activities has worsened. Flare up for the past month 07/2024) problem. Episode onset: 11/06/2023, flare up pain returned 07/2024. The problem occurs intermittently. The problem has been gradually improving since onset. The pain is present in the lumbar spine and gluteal (right hip). The quality of the pain is described as aching. Radiates to: posterior right thigh immediately under buttocks to posterior right thigh. The pain is at a severity of 1/10. The pain is mild. The pain is The same all the time (throughout the day pain can get worse with activity). The symptoms are aggravated by twisting (sitting, lifting, lying, twisting, pushing/pulling,). Stiffness is present All day (after prolonged sitting/laying). Associated symptoms include leg pain (right thigh immediately below buttocks). Pertinent negatives include no abdominal pain, bladder incontinence, bowel incontinence, chest pain, numbness, tingling or weakness. She has tried muscle relaxant, heat, home exercises and NSAIDs (Flexeril, Ibuprofen, Tylenol, heat w/ moderate relief; aspercream, essential oil/ Deep Blue rub w/ mild relief; ice/cold worsens) for the symptoms. The effect of pain on patient's ADLS: Moderate Impairment. Past Medical History: Diagnosis Date Acid reflux Diverticulitis Low back pain Seasonal allergies Past Surgical History: Procedure Laterality Date COLONOSCOPY ESOPHAGOGASTRODUODENOSCOPY w bx & polypectomy N/A 08/13/2022 Performed by Marii Hood MD at [facility] INJECTION BLOCK SACROILIAC JOINT Right 12/28/2024 Performed by Masood Wright MD at [facility] INJECTION BLOCK SACROILIAC JOINT Right 09/21/2024 Performed by Masood Wright MD at [facility] INJECTION BLOCK SACROILIAC JOINT Right 04/06/2024 Performed by Masood Wright MD at [facility] INJECTION BLOCK SACROILIAC JOINT Right 02/24/2024 Performed by Masood Wright MD at [facility] WISDOM TOOTH EXTRACTION 1996 Allergies Allergen Reactions Ciprofloxacin Metronidazole Family History Problem Relation Age of Onset Diabetes Mother Heart failure Mother Thyroid cancer Mother Hypertension Father Aortic aneurysm Father Colon cancer Maternal Uncle Inflammatory bowel disease Neg Hx Celiac disease Neg Hx Social History Socioeconomic History Marital status: Spouse name: Not on file Number of children: Not on file Years of education: Not on file Highest education level: Not on file Occupational History Not on file Tobacco Use Smoking status: Never Smokeless tobacco: Never Vaping Use Vaping status: Never Used Substance and Sexual Activity Alcohol use: No Drug use: No Sexual activity: Defer Other Topics Concern Not on file Social History Narrative Not on file Social Drivers of Health Financial Resource Strain: Low Risk (05/23/2023) Overall Financial Resource Strain (CARDIA) Difficulty of Paying Living Expenses: Not hard at all Food Insecurity: No Food Insecurity (01/24/2025) Hunger Screening Food Insecurity - Worry: Never True Food Insecurity - Inability: Never True Transportation Needs: No Transportation Needs (05/23/2023) PRAPARE - Transportation Lack of Transportation (Medical): No Lack of Transportation (Non-Medical): No Physical Activity: Not on file Stress: Not on file Social Connections: Not on file Interpersonal Safety: Not on file Housing Instability: Low Risk (05/23/2023) Housing Instability Housing Instability: No Review of Systems Constitutional: Negative. Negative for appetite change and chills. HENT: Negative. Negative for congestion. Eyes: Negative. Respiratory: Negative. Negative for cough and shortness of breath. Cardiovascular: Negative. Negative for chest pain. Gastrointestinal: Negative. Negative for abdominal pain and bowel incontinence. Endocrine: Negative. Genitourinary: Negative. Negative for bladder incontinence. Musculoskeletal: Positive for back pain. Skin: Negative. Allergic/Immunologic: Negative. Neurological: Negative. Negative for tingling, weakness and numbness. Hematological: Negative. Psychiatric/Behavioral: Negative. Vital Signs: BP 119/80 (BP Site: Left Arm, BP Postition: Sitting) Pulse 67 Resp 18 SpO2 100% Physical Exam: GENERAL - Healthy patient that appears stated age. HEENT - Normocephalic / Atraumatic, Extraoccular movements intact, trachea midline, thyroid within normal limits. CV - pulse regular, Warm extremities with appropriate color of nailbeds. RESP - No obvious wheezing, No Shortness of Breath, No overexertion response to exam maneuvers. COORDINATION - remains intact. PSYCH - Alert and Oriented x4, Attentive and appropriate, constitutionally normal, displays normal mood and affect per situation, answered questions appropriately during examination, demonstrated appropriate attention during discussion, demonstrated appropriate cognitive reasoning and understanding of the medical condition by asking appropriate questions regarding the diagnosis and risks/benefits/alternatives of treatment modalities. No obvious deficits in memory, reasoning, or intellect. Lumbar: SKIN - No rashes or bruising in the area of the patient s pain. LYMPH NODES - demonstrate no obvious enlargement. EXTREMITIES - Lower extremities are warm, with minimal edema and palpable pulses. Tenderness to palpation noted in the lumbar spine and paraspinal musculature. Pain is elicited with flexion, extension, and lateral rotation of the lumbar spine. Range of motion is diminished with these motions due to pain. Facet palpation is noted to be somewhat tender and facet loading maneuvers are mildly positive, but not concordant with the patient s normal pain complaints. STRENGTH - noted to be 5 out of 5 all muscle groups bilateral lower extremities including muscles involving hip flexion and abduction, knee flexion and extension, as well as foot dorsiflexion and plantarflexion. No notable atrophy, fasciculations or spasm. SENSORY - No notable sensory deficits in the bilateral lower extremities to touch or pinprick in all dermatomal distributions. Straight Leg Raise is negative. Gait is normal. Assessment/Treatment Plan: Kimberly was seen today for back pain. Diagnoses and all orders for this visit: Lumbosacral spondylosis without myelopathy Monitor Follow up 2-3 months The medications I have prescribed have been reviewed for medication interactions/contraindications and/or for upcoming procedures: continue current medication regimen without any changes. DISCUSSION: Treatment options discussed with patient and all questions answered to patient's satisfaction. Discussed the rules and regulations surrounding prescription of opioids and compliance at length. Failure to follow the rules and regulation will result in tapering and discontinuation of medications if applicable. Prescribed medication that requires intensive monitoring for toxicity We do not currently prescribe any controlled substance from this practice. It does appear that the patient benefited from the previous injection and the benefit has continued through this visit. At this time, we will monitor the patient s symptoms from an interventional standpoint and consider another injection in the future if the patient s symptoms return or intensify severely. The patient was made aware that they should call if symptoms worsen or if their pain begins to have a negative impact on their quality of life and activities of daily living again. The spine model was demonstrated and MRI was reviewed and used to explain the condition. OARRS: Reviewed. Scribe Statement: IDebbie CNA, scribed for and in the presence of KAREN DOMINGO who performed the above service. Debbie Krueger CNA 01/24/25 1041 KAREN Domingo 01/29/25 1212 documented in this encounter [facility] 01-10-2025 History of Presen t illness Narrative [facility] Follow Up Visit CHIEF COMPLAINT: Chief Complaint Patient presents with Follow-up Patient is here today for a follow up on GERD. Patent states she has diarrhea and constipation. Patient denies other GI symptoms. Heartburn Diarrhea Constipation HISTORY OF PRESENT ILLNESS: Kimberly Rasheed is a 44 y.o. female who has a PMH of GERD who presents today for a return visit for follow-up. She is an established patient of myself and Dr. Muse, last seen in June 2024. Patient notes her GERD symptoms are well controlled on Nexium 20 mg once with appropriate timing and Pepcid 20mg prior to dinner. She denies breakthrough symptoms. She was experiencing alternating bowel pattern beginning in 09/2025. 10/26/2024 KUB showed moderate stool burden. 10/2024 C difficile, GI panel were unremarkable, fecal calprotectin mildly elevated at 69.2. Awaiting repeat fecal calprotectin to be completed. Advise she complete repeat fecal calprotectin. She notes that there are certain foods such as bananas or milk that may cause her to experience diarrhea, discuss low FODMAP diet with strict food diary. She was having a BSS type 4 bowel movement daily at this time, but will experience random episodes of diarrhea that could be weekly or monthly. Denies associated symptoms, other GI symptoms or alarm features. Denies tobacco use, marijuana use, illicit drug use, persistent NSAID use, persistent alcohol use. Weight 01/10/25 1212 94.9 kg (209 lb 3.2 oz) 10/12/24 0806 93.9 kg (207 lb) 06/27/24 0753 94.3 kg (208 lb) 05/24/24 0910 93.9 kg (207 lb) 05/14/24 0904 95.1 kg (209 lb 9.6 oz) 05/01/24 0859 94.3 kg (208 lb) PREVIOUS ENDOSCOPIC PROCEDURES: 08/13/[address] Muse -- MAC sedation. Performed due to screening for Jennings's [...] identified. 01/23/[address] Goode -- MAC sedation. Performed due to GERD. GERD without esophagitis. 01/23/[address] Goode -- MAC sedation. Performed due to diarrhea and IBS. Normal colonoscopy to terminal ileum, random colon biopsies obtained to rule out microscopic colitis. PREVIOUS IMAGIN10/26/2024 KUB Moderate stool burden. 05/14/2024 CT AP with contrast Constellation of imaging findings most suggestive sigmoid diverticulitis. 11/06/2023 CT AP without contrast A few scattered [...] change. HENT: Negative for trouble swallowing. Gastrointestinal: Positive for constipation and diarrhea. Negative for abdominal distention, abdominal pain, anal bleeding, blood in stool, nausea, rectal pain and vomiting. Skin: Negative for color change. ALLERGIES: Ciprofloxacin and Metronidazole Current Medications: Current Outpatient Medications: cyclobenzaprine (FLEXERIL) 10 mg tablet, Take 1 tablet (10 mg total) by mouth every 8 (eight) hours as needed for muscle spasms., Disp: 45 tablet, Rfl: 3 esomeprazole (NexIUM) 20 mg capsule, Take 1 capsule (20 mg total) by mouth every morning before breakfast. One tablet daily, Disp: 90 capsule, Rfl: 3 famotidine (PEPCID) 20 mg tablet, Take 1 tablet (20 mg total) by mouth 2 (two) times a day. (Patient taking differently: Take 1 tablet (20 mg total) by mouth as needed for heartburn.), Disp: 60 tablet, Rfl: 1 fexofenadine-pseudoephedrine (RUBINA-D 12 HOUR) 60-120 mg per 12 hr tablet, Take 1 tablet by mouth as needed for allergies., Disp: 60 tablet, Rfl: 2 fluticasone propionate (FLONASE) 50 mcg/actuation nasal spray, Administer 1 spray into each nostril 2 (two) times a day. (Patient taking differently: Administer 1 spray into each nostril in the morning.), Disp: 15.8 mL, Rfl: 5 levonorgestreL (MIRENA) 20 mcg/24 hours (7 yrs) 52 mg IUD, 1 each by intrauterine route once., Disp: , Rfl: I reviewed and reconciled this patient's medication list today. The list included in this note is the most up to date list that I can attest to at this time based on the information that the patient has provided me and the electronic medical record. PAST MEDICAL, SOCIAL AND FAMILY HISTORY: Past Medical History: Past Medical History: Diagnosis Date Acid reflux Diverticulitis Low back pain Seasonal allergies Past Surgical History: Past Surgical History: Procedure Laterality Date COLONOSCOPY ESOPHAGOGASTRODUODENOSCOPY w bx & polypectomy N/A 08/13/2022 Performed by Marii Hood MD at [facility] ENDOSCOPY INJECTION BLOCK SACROILIAC JOINT Right 12/28/2024 Performed by Masood Wright MD at [facility] INJECTION BLOCK SACROILIAC JOINT Right 09/21/2024 Performed by Masood Wright MD at [facility] INJECTION BLOCK SACROILIAC JOINT Right 04/06/2024 Performed by Masood Wright MD at [facility] INJECTION BLOCK SACROILIAC JOINT Right 02/24/2024 Performed by Masood Wright MD at [facility] WISDOM TOOTH EXTRACTION 1996 Family History: Family History Problem Relation Age of Onset Diabetes Mother Heart failure Mother Thyroid cancer Mother Hypertension Father Aortic aneurysm Father Colon cancer Maternal Uncle Inflammatory bowel disease Neg Hx Celiac disease Neg Hx SOCIAL HISTORY: Social History Tobacco Use Smoking status: Never Smokeless tobacco: Never Vaping Use Vaping status: Never Used Substance Use Topics Alcohol use: No Drug use: No PHYSICAL EXAM: BP 123/76 Ht 160 cm (5' 2.99 ) Wt 94.9 kg (209 lb 3.2 oz) BMI 37.07 kg/m Body mass index is 37.07 kg/m . Physical Exam Constitutional: General: She is not in acute distress. Appearance: She is not toxic-appearing. Eyes: General: No scleral icterus. Cardiovascular: Rate and Rhythm: Normal rate and regular rhythm. Heart sounds: Normal heart sounds. No murmur heard. Pulmonary: Effort: Pulmonary effort is normal. Breath sounds: Normal breath sounds. Abdominal: General: Bowel sounds are normal. There is no distension. Palpations: Abdomen is soft. Tenderness: There is no abdominal tenderness. There is no guarding or rebound. Skin: Coloration: Skin is not jaundiced or pale. Neurological: Mental Status: She is alert. Psychiatric: Mood and Affect: Mood normal. Behavior: Behavior normal. DATA: CBC: Lab Results Component Value Date WBC 12.7 (H) 05/14/2024 HGB 13.2 05/14/2024 HCT 40.2 05/14/2024 MCV 91 05/14/2024 RDW 13.3 05/14/2024 PLT 278 05/14/2024 CMP: Lab Results Component Value Date K 3.4 (L) 05/14/2024 CL 102 05/14/2024 CO2 25 05/14/2024 BUN 10 05/14/2024 GLU 74 05/14/2024 FOLATE: No results found for: FOLATE HgBA1c: No results found for: HGBA1C Iron Studies: No results found for: FE , TIBC , FERRITIN PT/INR: No results found for: INR TSH: No results found for: TSH VITAMIN B12: No components found for: B12 25 Hydroxy Vitamin D Level: No components found for: VITDTOTAL DIAGNOSTIC STUDIES REVIEWED: As noted in the HPI ASSESSMENT AND PLAN: Kimberly Rasheed is a 44 y.o. female who has a PMH of GERD who presents today for a return visit for follow-up. GERD (well-controlled): Continue Nexium 20 mg once daily, 20-30 minutes prior to breakfast and dinner. Can use Pepcid 20 mg b.i.d. p.r.n. breakthrough acid reflux symptoms. Discussed anti-reflux measures. Consider pH impedance/manometry if symptoms recur. Due to long-term PPI use, recommend yearly vitamin B12, vitamin-D, Mg, BMP (renal function and Ca). Advised they discuss osteopenia/osteoporosis prevention methods as well as DEXA scan screenings with their PCP due to long-term PPI use. Diverticulitis (Resolved, dx 05/14/2024) / Alternating Bowel Pattern: Patient has declined CLN. Increase physical activity to 30 minutes daily, 5 days per week. Increase water intake to minimum 64 fluid oz of water daily. Increase dietary fiber intake or add fiber supplement such as Benefiber, Metamucil or Citrucel nightly. Complete repeat fecal calprotectin. Proceed with low FODMAP diet, keep strict food and symptom diary. Consider she could be experiencing overflow diarrhea. Further recommendations pending workup/therapy as planned. Patient is aware and agreeable to this plan. Patient is to follow-up in 4 months w/ Dr. Muse or sooner as needed. No orders of the defined types were placed in this encounter. Total time spent was 30 minutes: Preparing to see the patient (e.g., review of tests) Obtaining and/or reviewing separately obtained history Performing a medically appropriate examination and/or evaluation Counseling and educating the patient/family/caregiver Ordering medications, tests, or procedures ANTOINETTE RUSS PA-C [address], [address] [place] [address] PH: [phone] Patient to follow with Antoinette Russ PA-C and Dr. Muse This note is dictated with the use of M*Modal.Please note that this dictation was completed with computer voice recognition software. Quite often unanticipated grammatical, syntax, homophones, and other interpretive errors are inadvertently transcribed by the computer software. Please disregard these errors. Please excuse any errors that have escaped final proofreading. Antoinette Russ PA-C 01/10/25 1402 documented in this encounter [facility] 01-10-2025 Instructions Antoinette Russ PA-C - 01/10/2025 12:30 PM EDT Trial of low FODMAP diet with a strict food diary. documented in this encounter [facility] 12-04-2024 History of Presen t illness Narrative [facility] [address] [place] [address] Patient: Kimberly Rasheed Sex: female : 1980 Age: 44 y.o. PCP: Rober Juares MD 12/04/2024 Kimberly Rasheed is here for a(n) follow up. Patient reports increased back pain more towards the right side. Patient currently rates pain a 5/10 and can increase to 8/10 at times. Notices pain gets worse when sitting too long or by the end of the day. Patient states notices pain goes down right posterior thigh to knee. Chief Complaint Patient presents with Back Pain HPI: Physical Therapy at [facility]- approximately 11 sessions completed providing significant relief. First session November 23 2023. Last session January 12 2024. Pt did see Spine Care Doctor- Graciela Bowser right SI joint injection on 02/24/2024 with 100% relief 04/06/2024 Right Sacroiliac Joint Injection with 90% relief continuing through July. Pre procedure pain 02/16. Post procedure pain 10/1909/21/24 Right SI injection with 90% relief that continues Back Pain This is a chronic (patient has had spasms in back on and off for 20 years- recently twisting during exercise and other activities has worsened. Flare up for the past month 07/2024) problem. Episode onset: 11/06/2023, flare up pain returned 07/2024. The problem occurs intermittently. The problem has been gradually worsening since onset. The pain is present in the lumbar spine, gluteal and sacro-iliac (right side). The quality of the pain is described as aching. Radiates to: posterior right thigh immediately under buttocks to posterior right thigh. The pain is at a severity of 5/10 (can get up to 8/10 when sitting for a long time). The pain is moderate. The pain is The same all the time (throughout the day pain can get worse). The symptoms are aggravated by twisting (sitting, lifting, lying, twisting, pushing/pulling,). Stiffness is present All day (after prolonged sitting/laying). Associated symptoms include leg pain (right thigh immediately below buttocks). Pertinent negatives include no abdominal pain, bladder incontinence, bowel incontinence, chest pain, numbness, tingling or weakness. She has tried muscle relaxant, heat, home exercises and NSAIDs (Flexeril, Ibuprofen, Tylenol, heat w/ moderate relief; aspercream, essential oil/ Deep Blue rub w/ mild relief; ice/cold worsens) for the symptoms. The effect of pain on patient's ADLS: Moderate Impairment. Past Medical History: Diagnosis Date Acid reflux Diverticulitis Low back pain Seasonal allergies Past Surgical History: Procedure Laterality Date COLONOSCOPY ESOPHAGOGASTRODUODENOSCOPY w bx & polypectomy N/A 08/13/2022 Performed by Marii Hood MD at [facility] ENDOSCOPY INJECTION BLOCK SACROILIAC JOINT Right 09/21/2024 Performed by Masood Wright MD at [facility] INJECTION BLOCK SACROILIAC JOINT Right 04/06/2024 Performed by Masood Wright MD at [facility] INJECTION BLOCK SACROILIAC JOINT Right 02/24/2024 Performed by Masood Wright MD at [facility] WISDOM TOOTH EXTRACTION 1996 Allergies Allergen Reactions Ciprofloxacin Metronidazole Family History Problem Relation Age of Onset Diabetes Mother Heart failure Mother Thyroid cancer Mother Hypertension Father Aortic aneurysm Father Colon cancer Maternal Uncle Inflammatory bowel disease Neg Hx Celiac disease Neg Hx Social History Socioeconomic History Marital status: Spouse name: Not on file Number of children: Not on file Years of education: Not on file Highest education level: Not on file Occupational History Not on file Tobacco Use Smoking status: Never Smokeless tobacco: Never Vaping Use Vaping status: Never Used Substance and Sexual Activity Alcohol use: No Drug use: No Sexual activity: Defer Other Topics Concern Not on file Social History Narrative Not on file Social Drivers of Health Financial Resource Strain: Low Risk (05/23/2023) Overall Financial Resource Strain (CARDIA) Difficulty of Paying Living Expenses: Not hard at all Food Insecurity: No Food Insecurity (12/04/2024) Hunger Screening Food Insecurity - Worry: Never True Food Insecurity - Inability: Never True Transportation Needs: No Transportation Needs (05/23/2023) PRAPARE - Transportation Lack of Transportation (Medical): No Lack of Transportation (Non-Medical): No Physical Activity: Not on file Stress: Not on file Social Connections: Not on file Interpersonal Safety: Not on file Housing Instability: Low Risk (05/23/2023) Housing Instability Housing Instability: No Review of Systems Constitutional: Negative. Negative for appetite change and chills. HENT: Negative for congestion. Eyes: Negative. Respiratory: Negative. Negative for cough and shortness of breath. Cardiovascular: Negative. Negative for chest pain. Gastrointestinal: Negative. Negative for abdominal pain and bowel incontinence. Endocrine: Negative. Genitourinary: Negative. Negative for bladder incontinence. Musculoskeletal: Positive for back pain. Skin: Negative. Allergic/Immunologic: Negative. Neurological: Negative. Negative for tingling, weakness and numbness. Hematological: Negative. Psychiatric/Behavioral: Negative. Vital Signs: BP 121/76 (BP Site: Left Arm, BP Postition: Sitting) Pulse 83 Resp 20 SpO2 100% Physical Exam: GENERAL - Healthy patient that appears stated age. HEENT - Normocephalic / Atraumatic, Extraoccular movements intact, trachea midline, thyroid within normal limits. CV - pulse regular, Warm extremities with appropriate color of nailbeds. RESP - No obvious wheezing, No Shortness of Breath, No overexertion response to exam maneuvers. COORDINATION - remains intact. PSYCH - Alert and Oriented x4, Attentive and appropriate, constitutionally normal, displays normal mood and affect per situation, answered questions appropriately during examination, demonstrated appropriate attention during discussion, demonstrated appropriate cognitive reasoning and understanding of the medical condition by asking appropriate questions regarding the diagnosis and risks/benefits/alternatives of treatment modalities. No obvious deficits in memory, reasoning, or intellect. Lumbar: SKIN - No rashes or bruising in the area of the patient s pain. LYMPH NODES - demonstrate no obvious enlargement. EXTREMITIES - Lower extremities are warm, with minimal edema and palpable pulses. No significant tenderness to palpation noted in the lumbar spine and paraspinal musculature. Mild pain is elicited with flexion, extension, and lateral rotation of the lumbar spine. Range of motion is not diminished with these motions. Facet palpation is negative for significant pain and facet loading maneuvers elicit only mild pain that is not concordant with the patient s normal pain complaints. STRENGTH - noted to be 5 out of 5 all muscle groups bilateral lower extremities including muscles involving hip flexion and abduction, knee flexion and extension, as well as foot dorsiflexion and plantarflexion. No notable atrophy, fasciculations or spasm. SENSORY - No notable sensory deficits in the bilateral lower extremities to touch or pinprick in all dermatomal distributions. Straight Leg Raise is negative bilaterally. Tenderness to palpation is noted over the Right SacroIliac Joint: Fabere sign (Romario's Test) is significantly positive, as is compression and distraction of the sacroiliac joints, which is consistent with some of the patient's normal pain. Gait is normal. Assessment/Treatment Plan: Kimberly was seen today for back pain. Diagnoses and all orders for this visit: Disorder of sacrum - Case request operating room: INJECTION BLOCK SACROILIAC JOINT: right Right Sacroiliac Joint Injection - under fluoroscopy with the use of contrast dye (unless contraindicated) It is hopeful that the described procedure will provide symptomatic pain relief. It is felt to be medically necessary noting that the patient has tried and failed more conservative modalities of therapy and this is the next most appropriate step. The procedure was described in detail to the patient as well as the potential benefits of pain reduction alongside risks of the procedure and alternatives. Risks were described as including, but not limited to bleeding, infection, nerve damage, spinal cord injury, paralysis, stroke, dural puncture headache, and medication reaction. The patient expressed understanding regarding the risks and benefits and wishes to proceed. 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 Follow up 2 weeks after procedure The medications prescribed have been reviewed for medication interactions/contraindications and/or for upcoming procedures: continue current medication regimen without any changes. DISCUSSION: Treatment options discussed with patient and all questions answered to patient's satisfaction. Discussed the rules and regulations surrounding prescription of opioids and compliance at length. Failure to follow the rules and regulation will result in tapering and discontinuation of medications if applicable. Prescribed medication that requires intensive monitoring for toxicity We do not currently prescribe any controlled substance from this practice. It is noted that the patient did have good response from the previously performed procedure. It is felt that the patient would benefit from an additional procedure of the same nature in that the same symptoms have returned. It is hopeful that this additional injection will provide additional benefit and duration when combined with the previous injection. The spine model was demonstrated and MRI was reviewed and used to explain the condition. Chronic conditions not treated during this visit that affected my overall medical decision making: Comorbidity- Obesity The patient does have a comorbid condition of obesity. This will be taken into account in that obesity will contribute to certain pain conditions. It can contribute to pain from degenerative disc disease as well as osteoarthritis of the joints. Many neuropathic symptoms are also amplified due to axial spine loading. Special benefits will also need to be given to procedures. Many procedures are technically more difficult in the light of severe obesity. I will also consider the possibility of undiagnosed obstructive sleep apnea (which often accompanies obesity) when prescribing any narcotic medications. I will weigh the risks and benefits and fully discuss them with the patient for these reasons. OARRS: Reviewed. Scribe Statement: IDebbie CNA, scribed for and in the presence of KAREN DOMINGO who performed the above service. Provider Statement: ICIRA PA, personally performed the services described in the documentation, as scribed by Debbie Krueger CNA in my presence, and it is both accurate and complete. Debbie Krueger CNA 12/04/24 1515 KAREN Domingo 12/04/24 1536 documented in this encounter [facility] 12-04-2024 Instructions Debbie Krueger CNA - 12/04/2024 3:00 PM EST Facet Injection / Medial Branch Block (MBB) / Sacroiliac (SI) Joint Injection / Cluneal NB A facet injection and sacroiliac joint injection are injections of local anesthetic and steroid into a joint in the spine. A medial branch block is similar, but the medication is placed outside the joint space near the nerve that supplies the joint called the medial branch (steroid may or may not be used). You may require multiple injections depending upon how many joints are involved. How Long Will This Procedure Last? The extent and duration of pain relief may depend on the amount of inflammation and how many areas are involved. Other coexisting factors may be responsible for your pain. If your pain goes away for a short time, but then returns, you may be a candidate for radiofrequency ablation (RFA). Activity Be active. Attempt activities and movements that typically cause pain to see if it feels better while doing them. We will give you a pain diary. Please fill this out as directed by your nurse in pre-op. This will help your doctor determine the effectiveness of the injection, and how to proceed. Bring the pain diary with you to your follow-up appointment. Medications You should not take your pain medications for 4-6 hours before or after the injection in order to properly diagnose if the injection provides adequate relief. Resume your routine medications after your procedure. You may resume blood thinners per your regular schedule after the procedure. If you received sedation: If you received sedation for your procedure, you may feel sleepy or not yourself for several hours today. For the next 24 hours avoid activities that requires alertness or coordination. This includes: Driving or operating heavy machinery Using power tools Consuming alcohol Do not make important or complex decisions or sign legal documents in the next 24 hours. Other Instructions: If you feel severe pain at the injection site with swelling and redness, increased leg weakness, a fever of 101 or higher, headache (or worsening headache), changes in vision or urinary retention: Please call the office at , or have someone take you to the nearest emergency room. Tell the emergency room staff that you recently had a spine injection. A doctor must evaluate you for bleeding and injection complications. If you lose control over bowel, bladder, or legs: Go to the nearest emergency room. documented in this encounter [facility] [employer] 10-16-2024 History of Presen t illness Narrative [facility] [address] [place] [address] Patient: Kimberly Solissingherica Sex: female : 1980 Age: 43 y.o. PCP: Rober Juares MD 10/16/2024 Kimberly Rasheed is here for a(n) post procedure follow up right SI injection with 90% relief that continues today. Patient reports no pain currently but can get up to a 1/10 since injection. Date of onset of pain: 07/2024 , pain has lasted greater than 3 months. Pain scale before treatment: 8/10 Pre-op pain score: 4/10 Post-op pain score: 2/10 Percentage of relief after and duration: 90% relief that continues Pain scale after treatment: 0/10 Chief Complaint Patient presents with Back Pain HPI: Physical Therapy at [facility]- approximately 11 sessions completed providing significant relief. First session November 23 2023. Last session January 12 2024. Pt did see Spine Care Doctor- Graciela Bowser right SI joint injection on 02/24/2024 with 100% relief 04/06/2024 Right Sacroiliac Joint Injection with 90% relief continuing through July. Pre procedure pain 5/10. Post procedure pain 10/1909/21/24 Right SI injection with 90% relief that continues Back Pain This is a chronic (patient has had spasms in back on and off for 20 years- recently twisting during exercise and other activities has worsened. Flare up for the past month 07/2024) problem. Episode onset: 11/06/2023, flare up pain returned 07/2024. The problem occurs intermittently. The problem has been gradually improving (since SI injection) since onset. The pain is present in the lumbar spine, gluteal and sacro-iliac (right side). The quality of the pain is described as aching. Radiates to: posterior right thigh immediately under buttocks to posterior right thigh. The pain is at a severity of 1/10 (since the SI pain has gotten to 1/10). The pain is severe. Worse during: worse in evening and night. The symptoms are aggravated by twisting (sitting, lifting, lying, twisting, pushing/pulling,). Stiffness is present All day (after prolonged sitting/laying). Associated symptoms include headaches (migraines (occular)) and leg pain (right thigh immediately below buttocks). Pertinent negatives include no bladder incontinence, bowel incontinence, chest pain, fever, numbness, tingling or weakness. She has tried muscle relaxant, heat, home exercises and NSAIDs (Flexeril, Ibuprofen, Tylenol, heat w/ moderate relief; aspercream, essential oil/ Deep Blue rub w/ mild relief; ice/cold worsens) for the symptoms. Foot Pain This is a new problem. The current episode started in the past 7 days. The problem occurs rarely. Associated symptoms include headaches (migraines (occular)). Pertinent negatives include no chest pain, chills, congestion, fatigue, fever, numbness or weakness. The symptoms are aggravated by walking, twisting and exertion. She has tried acetaminophen, rest, walking, relaxation, lying down and position changes for the symptoms. The effect of pain on patient's ADLS: Moderate Impairment. Past Medical History: Diagnosis Date Acid reflux Diverticulitis Low back pain Seasonal allergies Past Surgical History: Procedure Laterality Date COLONOSCOPY ESOPHAGOGASTRODUODENOSCOPY w bx & polypectomy N/A 08/13/2022 Performed by Marii Hood MD at [facility] ENDOSCOPY INJECTION BLOCK SACROILIAC JOINT Right 09/21/2024 Performed by Masood Wright MD at [facility] INJECTION BLOCK SACROILIAC JOINT Right 04/06/2024 Performed by Masood Wright MD at [facility] INJECTION BLOCK SACROILIAC JOINT Right 02/24/2024 Performed by Masood Wright MD at [facility] WISDOM TOOTH EXTRACTION 1996 Allergies Allergen Reactions Ciprofloxacin Metronidazole Family History Problem Relation Age of Onset Diabetes Mother Heart failure Mother Thyroid cancer Mother Hypertension Father Aortic aneurysm Father Colon cancer Maternal Uncle Inflammatory bowel disease Neg Hx Celiac disease Neg Hx Social History Socioeconomic History Marital status: Spouse name: Not on file Number of children: Not on file Years of education: Not on file Highest education level: Not on file Occupational History Not on file Tobacco Use Smoking status: Never Smokeless tobacco: Never Vaping Use Vaping status: Never Used Substance and Sexual Activity Alcohol use: No Drug use: No Sexual activity: Defer Other Topics Concern Not on file Social History Narrative Not on file Social Drivers of Health Financial Resource Strain: Low Risk (05/23/2023) Overall Financial Resource Strain (CARDIA) Difficulty of Paying Living Expenses: Not hard at all Food Insecurity: No Food Insecurity (10/16/2024) Hunger Screening Food Insecurity - Worry: Never True Food Insecurity - Inability: Never True Transportation Needs: No Transportation Needs (05/23/2023) PRAPARE - Transportation Lack of Transportation (Medical): No Lack of Transportation (Non-Medical): No Physical Activity: Not on file Stress: Not on file Social Connections: Not on file Interpersonal Safety: Not on file Housing Instability: Low Risk (05/23/2023) Housing Instability Housing Instability: No Review of Systems Constitutional: Negative. Negative for chills, fatigue and fever. HENT: Negative. Negative for congestion. Eyes: Negative. Respiratory: Negative. Cardiovascular: Negative for chest pain and palpitations. Gastrointestinal: Negative. Negative for bowel incontinence. Endocrine: Negative. Genitourinary: Negative. Negative for bladder incontinence. Musculoskeletal: Negative. Positive for back pain. Skin: Negative. Allergic/Immunologic: Negative. Neurological: Positive for headaches (migraines (occular)). Negative for tingling, weakness and numbness. Hematological: Negative. Psychiatric/Behavioral: Negative. Vital Signs: BP 132/83 (BP Site: Right Arm, BP Postition: Sitting) Pulse 79 Resp 18 SpO2 100% Physical Exam: GENERAL - Healthy patient that appears stated age. HEENT - Normocephalic / Atraumatic, Extraoccular movements intact, trachea midline, thyroid within normal limits. CV - pulse regular, Warm extremities with appropriate color of nailbeds. RESP - No obvious wheezing, No Shortness of Breath, No overexertion response to exam maneuvers. COORDINATION - remains intact. PSYCH - Alert and Oriented x4, Attentive and appropriate, constitutionally normal, displays normal mood and affect per situation, answered questions appropriately during examination, demonstrated appropriate attention during discussion, demonstrated appropriate cognitive reasoning and understanding of the medical condition by asking appropriate questions regarding the diagnosis and risks/benefits/alternatives of treatment modalities. No obvious deficits in memory, reasoning, or intellect. Lumbar: SKIN - No rashes or bruising in the area of the patient s pain. LYMPH NODES - demonstrate no obvious enlargement. EXTREMITIES - Lower extremities are warm, with minimal edema and palpable pulses. No significant tenderness to palpation noted in the lumbar spine and paraspinal musculature. Mild pain is elicited with flexion, extension, and lateral rotation of the lumbar spine. Range of motion is not diminished with these motions. Facet palpation is negative for significant pain and facet loading maneuvers elicit only mild pain that is not concordant with the patient s normal pain complaints. STRENGTH - noted to be 5 out of 5 all muscle groups bilateral lower extremities including muscles involving hip flexion and abduction, knee flexion and extension, as well as foot dorsiflexion and plantarflexion. No notable atrophy, fasciculations or spasm. SENSORY - No notable sensory deficits in the bilateral lower extremities to touch or pinprick in all dermatomal distributions. Straight Leg Raise is negative bilaterally. Gait is normal. Assessment/Treatment Plan: Kimberly was seen today for back pain. Diagnoses and all orders for this visit: Disorder of sacrum Monitor Follow up 3-4 months The medications prescribed have been reviewed for medication interactions/contraindications and/or for upcoming procedures: continue current medication regimen without any changes. DISCUSSION: Treatment options discussed with patient and all questions answered to patient's satisfaction. Prescribed medication that requires intensive monitoring for toxicity We do not currently prescribe any controlled substance from this practice. It does appear that the patient benefited from the previous injection and the benefit has continued through this visit. At this time, we will monitor the patient s symptoms from an interventional standpoint and consider another injection in the future if the patient s symptoms return or intensify severely. The patient was made aware that they should call if symptoms worsen or if their pain begins to have a negative impact on their quality of life and activities of daily living again. The spine model was demonstrated and MRI was reviewed and used to explain the condition. OARRS: Reviewed. Scribe Statement: IDebbie CNA, scribed for and in the presence of JC PHIPPS who performed the above service. Provider Statement: YULIA Avila APRN-CNP, personally performed the services described in the documentation, as scribed by Debbie Krueger CNA in my presence, and it is both accurate and complete. Debbie Krueger CNA 10/16/24 1548 JC Phipps 10/16/24 1631 documented in this encounter [facility] [employer] 10-12-2024 History of Presen t illness Narrative Images from the original note were not included. [address] [id number] SUBJECTIVE: Patient ID: Kimberly Rasheed is a 43 y.o. female. 43 yo WF with Nausea, no vomiting, Diarrhea x 5 days ago no fever, tried imodium then developed cramping The following portions of the patient's history were reviewed and updated as appropriate: allergies, current medications, past family history, past medical history, past social history, past surgical history and problem list. REVIEW OF SYSTEMS: Review of Systems Gastrointestinal: Positive for diarrhea and nausea. PHYSICAL EXAMINATION: Vitals: 10/12/24 0806 BP: 102/70 Pulse: 80 Resp: 16 Weight: 93.9 kg (207 lb) Physical Exam Vitals and nursing note reviewed. Constitutional: Appearance: Normal appearance. HENT: Head: Normocephalic and atraumatic. Eyes: Extraocular Movements: Extraocular movements intact. Pupils: Pupils are equal, round, and reactive to light. Skin: General: Skin is warm and dry. Neurological: Mental Status: She is alert. Mental status is at baseline. ASSESSMENT/PLAN: Kimberly was seen today for abdominal pain. Diagnoses and all orders for this visit: Gastroesophageal reflux disease without esophagitis Diverticulitis Other orders - amoxicillin-pot clavulanate (AUGMENTIN) 875-125 mg per tablet; Take 1 tablet by mouth in the morning and 1 tablet before bedtime. Do all this for 7 days. Follow-up: Augmentin x7 Consider probiotic consider Gastro q6 documented in this encounter [facility] [employer] 08-13-2024 History of Presen t illness Narrative Reason for Appointment: Patient ID: Kimberly Rasheed is a 43 y.o. female who presents for [facility] Visit Patient presents today for Annual Exam. MEDICATIONS Current Outpatient Medications Medication Instructions esomeprazole (NEXIUM) 20 mg, Oral, Once Levonorgestrel 20 MCG/DAY intrauterine device 1 each, Intrauterine ALLERGIES No Known Allergies PROBLEMS Active Ambulatory Problems Diagnosis Date Noted No Active Ambulatory Problems Resolved Ambulatory Problems Diagnosis Date Noted No Resolved Ambulatory Problems Past Medical History: Diagnosis Date Diverticulitis Urinary tract infection 02/16/2021 HISTORY PAST MEDICAL HISTORY SOCIAL HISTORY Past Medical History: Diagnosis Date Diverticulitis Urinary tract infection 02/16/2021 Social History Tobacco Use Smoking status: Never Smokeless tobacco: Never Substance Use Topics Alcohol use: Never Drug use: Never FAMILY HISTORY Family History Problem Relation Name Age of Onset Cancer Mother Aurelia Zaman Diabetes Mother Aurelia Zaman Migraines Mother Aurelia Zaman Breast cancer Father's Sister Carmina Childress Cancer Mother's Brother Jackson Martinez Cancer Brother Jeremy Zaman Migraines Sister Jackie Parker SURGICAL HISTORY History reviewed. No pertinent surgical history. REVIEW OF SYSTEMS Review of Systems: Review of Systems All other systems reviewed and are negative. OBJECTIVE Objective: Physical Exam Constitutional: Appearance: Normal appearance. She is well-developed. Genitourinary: Vulva normal. Breasts: Breasts are soft. Right: Normal. Left: Normal. Cardiovascular: Rate and Rhythm: Normal rate and regular rhythm. Pulmonary: Effort: Pulmonary effort is normal. Breath sounds: Normal breath sounds. Abdominal: General: Bowel sounds are normal. There is no distension. Palpations: Abdomen is soft. Tenderness: There is no abdominal tenderness. There is no guarding or rebound. Musculoskeletal: General: No swelling. Normal range of motion. Right lower leg: No edema. Left lower leg: No edema. Neurological: Mental Status: She is alert and oriented to person, place, and time. Skin: General: Skin is warm and dry. Psychiatric: Mood and Affect: Mood normal. Behavior: Behavior normal. Vitals and nursing note reviewed. Exam conducted with a heavy equipment sales manager present. Vitals: Estimated body mass index is 36.85 kg/m as calculated from the following: Height as of this encounter: 5' 3 . Weight as of this encounter: 208 lb. BP: 122/84 No LMP recorded. Patient has had an implant. ASSESSMENT & PLAN ICD-10-CM 1. Well woman exam with routine gynecological exam Z01.419 THIN PREP TIS PAP AND HR HPV DNA Annual Exam: Patient presents today for an annual exam. Patient states she is doing well and has no complaints. Pap was obtained without difficulty. Patient has already had mammogram completed on 05/21/24 this year and is not due until next year. Follow Up: Patient is to return in one year for annual unless needed otherwise. Documented by Kimberly Begum LPN on behalf of: Eric Navarrete DO documented in this encounter [facility] Evaluation note Diagnosis Well woman exam with routine gynecological exam Routine gynecological examination [facility]* Diagnosis Gastroesophageal reflux disease without esophagitis- Primary Esophageal reflux Diverticulitis Diverticulitis of colon (without mention of hemorrhage) [facility] Diagnosis Disorder of sacrum- Primary Disorders of sacrum [facility]* Diagnosis Diarrhea, unspecified type- Primary [facility]* Diagnosis Elevated fecal calprotectin- Primary [facility]* Diagnosis Disorder of sacrum- Primary Disorders of sacrum Disorder of sacrum- Primary Disorders of sacrum Disorder of sacrum Disorders of sacrum [facility]* Diagnosis Diarrhea, unspecified type- Primary [facility]* Diagnosis Lumbosacral spondylosis without myelopathy- Primary [facility]* Diagnosis Diarrhea, unspecified type- Primary Gastroesophageal reflux disease without esophagitis Esophageal reflux [facility]* Diagnosis Gastroesophageal reflux disease without esophagitis Esophageal reflux [facility]* Attachments The following attachments cannot be sent through Care Everywhere. * Diverticulitis (Iraqi) documented in this encounter[facility] SystemInstructionsNot on file documented in this encounterProOhio[facility] SystemInstructionsNot on file documented in this encounterProOhiohealth [facility] SystemInstructionsNot on file documented in this encounterBl[facility] SystemInstructionsNot on file [facility] Advance Directives Advance Directive Response Recorded Date/ Time Advance Directives No January 15 21 1:32pm Chief Complaint and Reason for Visit Chief Complaint Abdominal Pain, GERD ,Alternating Diarrhea & Consti Assessments No Assessments Information Available Summary Purpose Family History No Family History Records FoundNo Family History Records FoundNo Family History Records FoundNo Family History Records FoundNo Family History Records FoundNo Family History Records Found Additional Source Comments INFORMATION SOURCE (unrecogn ized section and content) DATE CREATED AUTHOR 10/25/2021 [facility] DATE CREATED AUTHOR AUTHOR'S ORGANIZ ATION 10/01/2022 [facility] DATE CREATED AUTHOR AUTHOR'S ORGANIZ ATION 08/14/2024 [facility] EP[facility] DATE CREATED AUTHOR AUTHOR'S ORGANIZ ATION 10/19/2024 [facility] DATE CREATED AUTHOR AUTHOR'S ORGANIZ ATION 05/06/2025 [facility] DATE CREATED AUTHOR AUTHOR'S ORGANIZ ATION 05/13/2025 [facility] Care Teams (unrecognized sec tion and content) Frame Trimmer Relationship Specialty Start Date End Date Rober Juares MD [address] [place] [address] PCP - General 08/01/23 Frame Trimmer Relationship Specialty Start Date End Date Rober Juares MD [address] [address] PCP - General 08/01/23 Frame Trimmer Relationship Specialty Start Date End Date Rober Juares MD [address] [place] [address] PCP - General Family Medicine 05/27/22 Frame Trimmer Relationship Specialty Start Date End Date Rober Juares MD [address] [place] [address] PCP - General Family Medicine 05/27/22 Frame Trimmer Relationship Specialty Start Date End Date Rober Juares MD [address] [place] [address] PCP - General Family Medicine 05/27/22 Frame Trimmer Relationship Specialty Start Date End Date Rober Juares MD [address] [place] [address] PCP - General Family Medicine 05/27/22 Frame Trimmer Relationship Specialty Start Date End Date Rober Juares MD [address] [place] [address] PCP - General Family Medicine 05/27/22 Frame Trimmer Relationship Specialty Start Date End Date Rober Juares MD [address] [place] [address] PCP - General Family Medicine 05/27/22 Frame Trimmer Relationship Specialty Start Date End Date Rober Juares MD [address] Provider retired 01/08/25 [place] [address] PCP - General Family Medicine 05/27/22 Frame Trimmer Relationship Specialty Start Date End Date Derick Tolliver MD [address] [place] [address] PCP - General Internal Medicine 03/05/25 Frame Trimmer Relationship Specialty Start Date End Date Derick Tolliver MD [address] [place] [address] PCP - General Internal Medicine 03/05/25 Frame Trimmer Relationship Specialty Start Date End Date Derick Tolliver MD [address] [place] [id number] PCP - General Internal Medicine 03/05/25 Reason for Visit (unrecogniz ed section and content) Reason Comments Well Women Visit Reason Comments Abdominal Pain Off/on abdominal jonel ns. [place] like spasms. No fever Reason Comments Back Pain Reason Comments Back Pain Reason Comments Follow-up Patient is here toda y for a follow up on GERD. Patent states she has diarrhea and constipation. Patient denies other GI symptoms. Heartburn Diarrhea Constipation Reason Comments Follow-up Patient is here toda y for a follow up on diarrhea and reflux. Patient states she stop eating gluten and her diarrhea has stopped Heartburn Diarrhea Reason Onset Date Comments Med Refill 05/14/2025 FOR RECORDS PERTAINING TO PATIENTS WHO ARE [...] BE BASED ON THE PRIMARY CLINICAL RECORDS. [facility] [employer] [facility]. provides no warranty or guarantee of the accuracy or completeness of information in this document.
== END 2025-05-22 10:22 | disposition home or self-care (01) ==
LOC: MAMMO 10:22
PROVIDERS: Visit Provider Obstetrics & Gynecology
DX: Z12.31 Encounter for screening mammogram for malignant neoplasm of breast (principal); Z80.0 Family history of malignant neoplasm of digestive organs; Z80.3 Family history of malignant neoplasm of breast; Z80.8 Family history of malignant neoplasm of other organs or systems
CPT/HCPCS: 77063; 77067

== ENCOUNTER 2025-08-15 14:43 | Outpatient (OUT) | payer OTHER, SELFPAY ==
--- OUTSIDE RECORDS SUMMARY | 2025-08-15 10:00 | XMS_ITS | Encounter Summary ---
Author Organization [facility] Address [address] [facility] [place] [address] Care Team Providers Care Air Tube Releaser Name Role Phone Daren Juares MD Primary Care Provider [phone] Reason for Visit * ReasonCommentsWell Women Visit Encounter Details DateTypeDepartmentCare Team (Latest Contact Info)Zxexrlgtfmd79/06/2025 10:00 AM ESTOffice Visit [facility] [address] [place] [address] Eric Navarrete, [address] [place], [place] [id number] Well woman exam with routine gynecological exam Social History Tobacco UseTypesPacks/DayYears UsedDateSmoking Tobacco: NeverSmokeless Tobacco: NeverAlcohol UseStandard Drinks/WeekCommentsNever0 (1 standard drink = 0.6 oz pure alcohol)CommentsNoSex and Gender InformationValueDate RecordedSex Assigned at BirthNot on fileLegal FrgRqvyft53/15/2023 11:47 PM EDTGender IdentityNot on fileSexual OrientationNot on filedocumented as of this encounter Last Filed Vital Signs Vital SignReadingTime TakenCommentsBlood Jdvbivim933/8408/15/2025 10:09 AM EST Pulse--Temperature--Respiratory Rate--Oxygen Saturation--Inhaled Oxygen Concentration--Sphlyw611 kg (224 lb 12 oz)08/15/2025 10:09 AM ESTHeight--Body Mass Index39.8108/13/2024 10:11 AM ESTdocumented in this encounter Plan of Treatment DateTypeDepartmentCare Team (Latest Contact Info)Zmexdzwruga06/10/2025 2:30 PM ESTProcedure Visit [facility] [address] [place] [address] [place] [phone] Eric Navarrete, DO [address] [place] [address] 08/19/2026 10:00 AM ESTProcedure Visit [facility] [address] [place] [id number] Eric Navarrete, DO [address] [place] [address] NameTypePriorityAssociated DiagnosesOrder ScheduleTHIN PREP TIS PAP AND HR HPV DNAPathology and CytologyRoutine Well woman exam with routine gynecological exam Ordered: 08/15/2025documented as of this encounter Visit Diagnoses Diagnosis Well woman exam with routine gynecological exam Routine gynecological examination documented in this encounter Care Teams Team MemberRelationshipSpecialtyStart DateEnd Date Daren Juares MD PCP - Lzgcbso33/23/23documented as of this encounter
--- OUTSIDE RECORDS SUMMARY | 2025-08-15 14:49 | XMS_ITS | Encounter Summary ---
Author Organization [facility] Address [address] [facility] [place] [address] Care Team Providers Care Hosiery Mender Name Role Phone Daren Juares MD Primary Care Provider [phone] Encounter Details DateTypeDepartmentCare Team (Latest Contact Info)Heourwxwkjh41/12/2024Clinisync Result Encounter [facility] External Department Unsolicited Eric Navarrete, DO [address] [place], [facility]11 Social History Tobacco UseTypesPacks/DayYears UsedDateSmoking Tobacco: Never Assessed CommentsUnknownSex and Gender InformationValueDate RecordedSex Assigned at Not on fileLegal GpzUvasle23/15/2023 11:47 PM EDTGender IdentityNot on file Sexual OrientationNot on filedocumented as of this encounter Plan of Treatment DateTypeDepartmentCare Team (Latest Contact Info)Qgaeirxdfpa58/10/2025 2:30 PM ESTProcedure Visit NOMTammy MARADIAGA [address] [place] [address] [place] [address] Eric Navarrete, DO [address] [place], [place] [address] 08/19/2026 10:00 AM ESTProcedure Visit NOMTammy MARADIAGA [address] [place] [address] Eric Navarrete, DO [address] [place], [place] [address] documented as of this encounter Procedures Procedure NamePriorityDate/TimeAssociated DiagnosisCommentsMM TOMOSYNTHESIS SCREENING BI05/21/2024 11:54 AM EDT documented in this encounter Results * MM TOMOSYNTHESIS SCREENING BI (05/21/2024 11:54 AM EDT)Anatomical Region LateralityModalityOtherSpecimen (Source)Anatomical Location / Laterality Collection Method / VolumeCollection TimeReceived Time05/21/2024 11:54 AM EDT Narrative 05/21/2024 11:55 AM EDT [facility] ?[address] ? [place] [address] ? Mammography Report ? Signed ? Patient: VERONICA MARY S ?MR#: [id number] ?? : 1980 ?Acct:[id number] ?? Age/Sex: 43 / F ?ADM Date: 05/21/24 ?? Loc: MAMMO ? Attending Dr: Eric Navarrete D.O. ? Ordering Physician: Eric Navarrete D.O. ?Results: ? Date of Service: 05/21/24 ?Follow Up: ? Procedure(s): MM tomosynthesis screening BI ?? Accession Number(s): [id number] ? cc: Eric Navarrete D.O.; Physician,Non-Staff M.D. ? Patient Name: ? VERONICA MARY ? MR#: [id number] ? : 1980 ? Exam Date: 05/21/2024 ?? Ordering Doctor: DR Eric Navarrete . ? RADIOLOGY REPORT ? PROCEDURE: ? MM TOMOSYNTHESIS SCREENING BI ? COMPARISON: ? MG MAMM SCREEN 3D SHAHIDA CAD, 05/12/2022. ??MM TOMOSYNTHESIS ?? SCREENING BI, 05/18/2023. ? INDICATIONS: ? Screening ? Calculator Name ? NCI Breast Cancer Risk Assessment Tool ?? 5 Year Breast Cancer Risk ? 1.00% ?? Lifetime Breast Cancer Risk ? 13.20% ?? Personal Breast Cancer ?No ?? Personal Ovarian Cancer ? No ?? Treatments ? None ?? Family Cancers ? Uncle-maternal with colon cancer at age ??60; ?? Aunt-maternal with breast cancer at age ??60; Mother with thyroid cancer at ?? age 64. ? LOCATION: ? [facility] ? BREAST COMPOSITION: ? There are scattered areas of fibroglandular density. ? FINDINGS: ? DIAGNOSTIC CATEGORY 2--BENIGN FINDING. NO CHANGE FROM COMPARISON. ??Scattered ?? benign-appearing lymph nodes are present. ? RIGHT BREAST: ??No significant suspicious finding. ? LEFT BREAST: ??No significant suspicious finding. ? RECOMMENDATIONS: ? ROUTINE MAMMOGRAM AND CLINICAL EVALUATION IN 12 MONTHS. ? PLEASE NOTE: ??A NORMAL MAMMOGRAM DOES NOT EXCLUDE THE POSSIBILITY OF BREAST ?? CANCER. ??A CLINICALLY SUSPICIOUS PALPABLE LUMP SHOULD BE BIOPSIED. ? Dictated by: Daren Jean MD on 05/21/2024 at 11:53 ? Approved by: Daren Jean MD on 05/21/2024 at 11:54 ? Dictated By: ?Daren Jean M.D. ? Signed By: ?05/21/245 ? DD/ ? TD/TT: ? Detailer Furniture: Procedure Note Radiology, Radiologist, MD - 05/21/2024 [place] [address] Mammography Report Signed Patient: VERONICA MARY [facility]#: [id number] : 1980Acct:[id number] Age/Sex: 43 / FADM Date: 05/21/24 Loc: MAMMO Attending Dr: Eric Navarrete D.O. Ordering Physician: Eric Navarrete D.O.Results: Date of Service: 05/21/24Follow Up: Procedure(s): MM tomosynthesis screening BI Accession Number(s): [id number] cc: Eric Navarrete D.O.; Physician,Non-Staff Vel Patient Name: VERONICA MARY MR#: [id number] : 1980 Exam Date: 05/21/2024 Ordering Doctor: DR Eric Navarrete . RADIOLOGY REPORT PROCEDURE: MM TOMOSYNTHESIS SCREENING BI COMPARISON: MG MAMM SCREEN 3D SHAHIDA CAD, 05/12/2022. MM TOMOSYNTHESIS SCREENING BI, 05/18/2023. INDICATIONS: Screening Calculator Name NCI Breast Cancer Risk Assessment Tool 5 Year Breast Cancer Risk 1.00% Lifetime Breast Cancer Risk 13.20% Personal Breast Cancer No Personal Ovarian Cancer No Treatments None Family Cancers Uncle-maternal with colon cancer at age 60; Aunt-maternal with breast cancer at age 60; Mother with thyroid cancer at age 64. LOCATION: [facility] BREAST COMPOSITION: There are scattered areas of fibroglandulardensity. FINDINGS: DIAGNOSTIC CATEGORY 2--BENIGN FINDING. NO CHANGE FROM COMPARISON.Scattered benign-appearing lymph nodes are present. RIGHT BREAST: No significant suspicious finding. LEFT BREAST: No significant suspicious finding. RECOMMENDATIONS: ROUTINE MAMMOGRAM AND CLINICAL EVALUATION IN 12 MONTHS. PLEASE NOTE: A NORMAL MAMMOGRAM DOES NOT EXCLUDE THE POSSIBILITY OFBREAST CANCER. A CLINICALLY SUSPICIOUS PALPABLE LUMP SHOULD BE BIOPSIED. Dictated by: Daren Jean MD on 05/21/2024 at 11:53 Approved by: Daren Jean MD on 05/21/2024 at 11:54 Dictated By: Daren Jean M.D. Signed By:05/21/24 1155 DD/ 1154 TD/TT: Detailer Furniture: Authorizing ProviderResult TypeResult StatusCorey Rosalba DOCLINISYNC IMAGINGFinal Result documented in this encounter Visit Diagnoses Not on filedocumented in this encounter Care Teams Team MemberRelationshipSpecialtyStart DateEnd Date Daren Juares MD PCP - Xuhwtcc30/23/23documented as of this encounter
--- OUTSIDE RECORDS SUMMARY | 2025-08-15 14:49 | XMS_ITS | Clinical Summary ---
Author Organization [facility] Address [facility] [facility], [address] [place] [address] Care Team Providers Care Statistical Developer Name Role Phone None, . Primary Care Provider Unavailabl e Allergies No known active allergies Medications MedicationSigDispense QuantityRefillsLast FilledStart DateEnd DateStatus Cetirizine HCl (ZYRTEC ALLERGY PO) Take by mouth as needed.Active VITAMINS PO Take by mouth daily.Active diphenhydrAMINE (BENADRYL) 25 MG tablet Take 25 mg by mouth every 6 hours as needed.Active Active Problems ProblemNoted DateDiagnosed DateEchogenic Intracardiac Focus02/22/2012 Social History Tobacco UseTypesPacks/DayYears UsedDateSmoking Tobacco: NeverAlcohol UseStandard Drinks/WeekCommentsNot Asked0 (1 standard drink = 0.6 oz pure alcohol) CommentsUnknownSex and Gender InformationValueDate RecordedSex Assigned at Not on fileLegal IpjFclrfn00/12/2013 11:04 PM ESTGender IdentityNot on file Sexual OrientationNot on file Last Filed Vital Signs Vital SignReadingTime TakenCommentsBlood Jhoqeegc913/7008 9:17 AM EDT Tycnf738605/26/2012 9:17 AM XZVMiphzfftmrl58.7 ??C (98 ??F)05/26/2012 9:17 AM EDT Respiratory Scft130405/26/2012 9:17 AM EDTOxygen Saturation--Inhaled Oxygen Concentration--Dpxjhq29.3 kg (219 lb)05/26/2012 9:17 AM EDTHeight--Body Mass Index-- Plan of Treatment Not on file Care Teams Team MemberRelationshipSpecialtyStart DateEnd Date None, . PCP - General02/21/12
--- OUTSIDE RECORDS SUMMARY | 2025-08-15 14:49 | XMS_ITS | Encounter Summary ---
Author Organization [facility] Address [address] [facility] [place] [address] Care Team Providers Care Cleaning Validation Consultant Name Role Phone Daren Juares MD Primary Care Provider [phone] Encounter Details DateTypeDepartmentCare Team (Latest Contact Info)Wefemymqkni65/06/2025amboo flowsheet LISSY MARADIAGA [address] [place] [address] [place] [address] Eric Navarrete DO [address] [place] [address] Dr Jenniefr Kelly, [facility]11 Social History Tobacco UseTypesPacks/DayYears UsedDateSmoking Tobacco: NeverSmokeless Tobacco: NeverAlcohol UseStandard Drinks/WeekCommentsNever0 (1 standard drink = 0.6 oz pure alcohol)CommentsNoSex and Gender InformationValueDate RecordedSex Assigned at BirthNot on fileLegal YobVgmhtq67/15/2023 11:47 PM EDTGender IdentityNot on fileSexual OrientationNot on filedocumented as of this encounter Plan of Treatment DateTypeDepartmentCare Team (Latest Contact Info)Thgcuwmlpwu54/10/2025 2:30 PM ESTProcedure Visit ILSSY MARADIAGA [address] [facility] [place] [address] Eric Navarrete DO [address] [place] [address] Dr Jennifer [place], [place] [id number] 08/19/2026 10:00 AM ESTProcedure Visit LISSY MARADIAGA [address] [facility] [place] [address] Eric Navarrete DO [address] [facility] [place] [address] documented as of this encounter Visit Diagnoses Not on filedocumented in this encounter Care Teams Team MemberRelationshipSpecialtyStart DateEnd Date Daren Juares MD PCP - Kmlfgtq24/23/23documented as of this encounter
--- OUTSIDE RECORDS SUMMARY | 2025-08-15 14:49 | XMS_ITS | Clinical Summary ---
Author Organization [employer] Address [facility] [id number] [place] [address] Care Team Providers Care Manager Name Role Phone Caryn Mathieu Mckeon DO Primary Care Provider [phone] Allergies Active AllergyReactionsCriticalityNoted IrtqVemuurxcZnnrylrkalraa16/15/2024 Zrhnuivbpuqza52/15/2024 Medications MedicationSigDispense QuantityRefillsLast FilledStart DateEnd DateStatus fluticasone propionate (FLONASE) 50 mcg/actuation nasal spray Administer 1 spray into each nostril 2 (two) times a day. 15.8 mL Active famotidine (PEPCID) 20 mg tablet Take 1 tablet (20 mg total) by mouth 2 (two) times a day. 60 tablet ctive levonorgestreL (MIRENA) 20 mcg/24 hours (7 yrs) 52 mg IUD 1 each by intrauterine route once.Active fexofenadine-pseudoephedrine (RUBINA-D 12 HOUR) 60-120 mg per 12 hr tablet Take 1 tablet by mouth as needed for allergies. 60 tablet ctive esomeprazole (NexIUM) 20 mg capsule Indications:Gastroesophageal reflux disease without esophagitisTake 1 capsule (20 mg total) by mouth every morning before breakfast. One tablet daily 90 capsule 5Active Active Problems ProblemNoted DateDiagnosed DateDisorder of qxlqcj1202/07/2024Gastroesophageal reflux disease without ylmomnwegig41/02/2023 Encounters DateTypeDepartmentCare KdkuOrwukvsgnhf50/06/2025 3:30 PM EDTOffice Visit [facility] [address] [place] [address] Mathieu Rubin, Wellness examination (Primary Dx)07/15/20253870Pavmov47/18/2025 3:00 PM EDTOffice Visit [facility] [address] [place] [address] Jason Bedolla PA Disorder of sacrum (Primary Dx)06/27/20255312Xaofyb56/19/2025Travelfrom Last 3 Months Immunizations ImmunizationAdministration DatesNext DueInfluenza (IM) Preservative Free 08/22/2024Influenza, Injectable, Kuclqkyanktu93/02/2019Influenza, Injectable, quadrivalent (PF)07/11/2019,07/13/2018Influenza, Recombinant, Quadrivalent, Injectable, Zhxuxgf0208/01/2023,07/30/2022,07/24/2021Td, Mwsphnafuos97/29/2005Tdap 09/24/2012 Family History Medical HistoryRelationNameCommentsAortic aneurysmFatherFrederick Austyn HypertensionFatherFrederick JosephColon cancerMaternal UncleCharles Gillig DiabetesMotherMarjory JosephHeart failureMotherMarjory JosephThyroid cancer MotherMarjory JosephBreast cancerPaternal Aunt 1Patricia ZyskiDiabetesPaternal Aunt 1Patricia ZyskiKidney diseasePaternal Aunt 2Aunt PatKidney diseasePaternal GrandfatherMaurice JosephCeliac diseaseNeg HxInflammatory bowel diseaseNeg Hx RelationNameStatusCommentsFatherFrederick JosephAliveMaternal UncleCharles GilligMotherMarjory JosephAlivePaternal Aunt 1Patricia ZyskiAlivePaternal Aunt 2 Aunt PatAlivePaternal GrandfatherMaurice JosephAlive Social History Tobacco UseTypesPacks/DayYears UsedDateSmoking Tobacco: NeverSmokeless Tobacco: Never Tobacco Cessation:Counseling Given: Not Answered Alcohol UseStandard Drinks/WeekCommentsNo0 (1 standard drink = 0.6 oz pure alcohol)Overall Financial Resource Strain (CARDIA)AnswerDate RecordedHow hard is it for you to pay for the very basics like food, housing, medical care, and heating?Not hard at all05/23/2023HQ-2AnswerDate RecordedTotal Hxksp933 PRAPARE - TransportationAnswerDate RecordedIn the past 12 months, has lack of transportation kept you from medical appointments or from getting medications?No 05/23/2023In the past 12 months, has lack of transportation kept you from meetings, work, or from getting things needed for daily living?No05/23/2023 Housing InstabilityAnswerDate RecordedAre you worried or concerned that in the next two months you may not have stable housing that you own, rent or stay in as a part of a household?No05/23/2023hildcareAnswerDate RecordedChildcareUnknown 03/21/2019EmploymentAnswerDate SdkvifdvHyiybvygytOmjqpju17/12/2019Hunger ScreeningAnswerDate RecordedWithin the past 12 months we worried whether our food would run out before we got money to buy more.Never True07/15/2025Within the past 12 months the food we bought just didn't last and we didn't have money to get more.Never True07/15/2025Purpose - LifeAnswerDate RecordedPurpose and direction in njyvCnprrqy70/18/2021CommentsNoSex and Gender Information ValueDate RecordedSex Assigned at BirthNot on fileLegal TddFgwisr68/06/2015 11:37 AM EDTGender IdentityNot on fileSexual YgcukvcqdbuTrbmhbem83/04/2022 6:04 PM EDT Last Filed Vital Signs Vital SignReadingTime TakenCommentsBlood Rngtgqqv857/7807/15/2025 3:33 PM EDT Cwgvf921607/15/2025 3:33 PM PKLZacgrnuouuv76.7 ??C (98 ??F)07/15/2025 3:33 PM EDT Respiratory Ndqg341806/27/2025 3:04 PM EDTOxygen Jlpykdrzok73%07/15/2025 3:33 PM EDTInhaled Oxygen Concentration--Lwkvta518.3 kg (225 lb 9.6 oz)07/15/2025 3:33 PM MTIQgxvyb168 cm (5' 2.21 )07/15/2025 3:33 PM EDTBody Mass Index40.99 07/15/2025 3:33 PM EDT Plan of Treatment DateTypeDepartmentCare Team (Latest Contact Info)Eppkzyiophz63/11/2025 3:00 PM ESTOffice Visit [facility] [address] [place] [address] Jason Bedolla PA [address] [facility], 2nd [address] [place], [place] [address] 09/11/2025 9:30 AM ESTOffice Visit [facility] of [address] [phone] Antoinette Russ, PA-C [address] [place] [address] [address] [place] [address] 07/17/2026 3:30 PM EDTOffice Visit [facility] [address] [place] [address] [place] [address] Mathieu Rubin DO [address] [facility], [address] [place] [address] Health MaintenanceDue DateLast DoneCommentsAdult BMI Follow Up Plan1998 DTaP,Tdap and Td Vaccines (2 - Td or Tdap), 05/07/2005COVID- 19 Vaccine ( - 2024- season)/, 01/02/2021, 12/03/2020 Influenza Igaarud81/, 08/01/2023, 07/30/2022, Additional history existsAdult BMI Wprpvtphu345Depression Screening /03/2025Tobacco Qiykvkqeq57/03/2025Pap Smear08/13/2027 08/13/2024 Medical Devices Not on file Insurance * Guarantor: Veronica RasheedAccount TypeRelation to PatientDate of BirthPhoneBilling AddressPersonal/BcsdtvPrtk96/25/1981 [address] [place] [address] Care Teams Team MemberRelationshipSpecialtyStart DateEnd Date Mathieu Rubin DO [address] [facility], [place] [address] PCP - GeneralFamily Ndtaiaif39/6/25
--- OUTSIDE RECORDS SUMMARY | 2025-08-15 14:49 | XMS_ITS | Clinical Summary ---
Author Organization [facility] Address [address] [facility] [place] [address] Care Team Providers Care Insulation Foreman Name Role Phone Daren Juares MD Primary Care Provider [phone] Allergies No known active allergies Medications MedicationSigDispense QuantityRefillsLast FilledStart DateEnd DateStatus esomeprazole (NexIUM) [address] capsule Take 20 mg by mouth 1 timeActive Levonorgestrel 20 MCG/DAY intrauterine device 1 each by Intrauterine route.Active Encounters DateTypeDepartmentCare EyfmJgxakrxiank52/06/2025 10:00 AM ESTOffice Visit N[facility]S Leticia MARADIAGA [address] [place] [address] Hiram Navarrete DO Well woman exam with routine gynecological exam5Bamboo flowsheet [facility]S Leticia MARADIAGA [address] [place] [address] Hiram Navarrete DO 5Clinisync Result Encounter NOMS External Department Unsolicited Hiram Navarrete DO from Last 3 Months Family History Medical HistoryRelationNameCommentsCancerBrotherRobert JosephBreast cancer Father's SisterPatricia ZyskiCancerMotherMarjory JosephDiabetesMotherMarjory JosephMigrainesMotherMarjory JosephCancerMother's BrotherCharles GilligMigraines SisterCone Health Moses Cone HospitalRelationNameStatusCommentsBrotherRobert JosephFather's Sister Carmina ZyskiMotherMarjory JosephMother's BrotherCharles GilligSisterCone Health Moses Cone Hospital Social History Tobacco UseTypesPacks/DayYears UsedDateSmoking Tobacco: NeverSmokeless Tobacco: Never Tobacco Cessation:Counseling Given: Not Answered Alcohol UseStandard Drinks/WeekCommentsNever0 (1 standard drink = 0.6 oz pure alcohol)CommentsNoSex and Gender InformationValueDate RecordedSex Assigned at BirthNot on fileLegal HvwIryjiu50/15/2023 11:47 PM EDTGender IdentityNot on fileSexual OrientationNot on file Last Filed Vital Signs Vital SignReadingTime TakenCommentsBlood Zwwrjkdm714/8408/15/2025 10:09 AM EST Pulse--Temperature--Respiratory Rate--Oxygen Saturation--Inhaled Oxygen Concentration--Nlbcoz949 kg (224 lb 12 oz)08/15/2025 10:09 AM AVSGbnkpb203 cm (5' 3 )08/13/2024 10:11 AM ESTBody Mass Index39.8108/13/2024 10:11 AM EST Plan of Treatment DateTypeDepartmentCare Team (Latest Contact Info)Lkwfvmnybea98/10/2025 2:30 PM ESTProcedure Visit NOMTammy MARADIAGA [address] [place] [address] [place] [phone] Hiram Navarrete, [address] [place] [address] 08/19/2026 10:00 AM ESTProcedure Visit LISSY MARADIAGA [address] [place] [address] [place] [address] Hiram Navarrete, [address] [place] [address] Health MaintenanceDue DateLast DoneCommentsCOVID-19 Vaccine ( season) /, 01/02/2021, 12/03/20207920Ktdfdbnjg18/13/202608/, 4Cervical Cancer Zqcahyjmi18/04/2029HPV/Qqwlvo4908/13/2029Pap Smear 9110/13/2023Influenza RnvaqecAxlisbfur52/04/2025, 08/22/2024, 08/01/2023, Additional history existsPneumococcal Vaccine: Pediatrics (0 to 5 Years) and At-Risk Patients (6 to 64 Years)Aged OutNo longer eligible based on patient's age to complete this topic Procedures Procedure NamePriorityDate/TimeAssociated DiagnosisCommentsMM TOMOSYNTHESIS SCREENING BI05/22/2025 2:39 PM EDT PAP ODZOUMurfeyp98/04/2024 12:00 AM ESTfrom Last 3 Months or Most Recently Relevant to Health Maintenance Results * MM TOMOSYNTHESIS SCREENING BI (05/22/2025 2:39 PM EDT)Anatomical Region LateralityModalityOtherSpecimen (Source)Anatomical Location / Laterality Collection Method / VolumeCollection TimeReceived Time05/22/2025 2:39 PM EDT Narrative 05/22/2025 2:40 PM EDT [facility] ?[address] ? [place] [address] ? Mammography Report ? Signed ? Patient: HAUBERT,VERONICA S ?MR#: [id number] ?? : 1980 ?Acct:[id number] ?? Age/Sex: 44 / F ?ADM Date: 05/22/25 ?? Loc: MAMMO ? Attending Dr: Hiram Navarrete D.O. ? Ordering Physician: Hiram Navarrete D.O. ?Results: ? Date of Service: 05/22/25 ?Follow Up: ? Procedure(s): MM tomosynthesis screening BI ?? Accession Number(s): [id number] ? cc: Hiram Navarrete D.O.; Physician,Non-Staff Vel ? Patient Name: ? VERONICA MARY ? MR#: [id number] ? : 1980 ? Exam Date: 05/22/2025 ?? Ordering Doctor: DR HIRAM NAVARRETE . ? RADIOLOGY REPORT ? PROCEDURE: ? MM TOMOSYNTHESIS SCREENING BI ? COMPARISON: ? MM TOMOSYNTHESIS SCREENING BI, 05/21/2024. ??MM TOMOSYNTHESIS ?? SCREENING BI, 05/18/2023. ??MG MAMM SCREEN 3D SHAHIDA CAD, 05/12/2022. ??MG MAMM ?? SCREEN 3D SHAHIDA CAD, 05/08/2021. ? INDICATIONS: ? Screening ? Calculator Name ? NCI Breast Cancer Risk Assessment Tool ?? 5 Year Breast Cancer Risk ? 1.10% ?? Lifetime Breast Cancer Risk ? 13.10% ?? Personal Breast Cancer ?No ?? Personal Ovarian Cancer ? No ?? Treatments ? None ?? Family Cancers ? Uncle-maternal with colon cancer at age ??60; ?? Aunt-maternal with breast cancer at age ??60; Mother with thyroid cancer at ?? age 64. ? LOCATION: ? [facility] ? BREAST COMPOSITION: ? There are scattered areas of fibroglandular density. ? FINDINGS: ? RIGHT BREAST: ??No significant suspicious finding. ? LEFT BREAST: ??No significant suspicious finding. ? DIAGNOSTIC CATEGORY 1--NEGATIVE. ? RECOMMENDATIONS: ? ROUTINE MAMMOGRAM AND CLINICAL EVALUATION IN 12 MONTHS. ? PLEASE NOTE: ??A NORMAL MAMMOGRAM DOES NOT EXCLUDE THE POSSIBILITY OF BREAST ?? CANCER. ??A CLINICALLY SUSPICIOUS PALPABLE LUMP SHOULD BE BIOPSIED. ? Dictated by: Sahil Nguyen MD on 05/22/2025 at 14:28 ? Approved by: Sahil Nguyen MD on 05/22/2025 at 14:39 ? Dictated By: ?Sahil Nguyen M.D. ? Signed By: ?05/22/25 1440 ? DD/ 1439 ? TD/TT: ? Clinical Dental Technician: Procedure Note Radiology, Radiologist, MD - 05/22/2025 [place] [address] Mammography Report Signed Patient: VERONICA MARY SMR#: [id number] : 1980Acct:[id number] Age/Sex: 44 / FADM Date: 05/22/25 Loc: MAMMO Attending Dr: Hiram Navarrete D.O. Ordering Physician: Hiram Navarrete D.O.Results: Date of Service: 05/22/25Follow Up: Procedure(s): MM tomosynthesis screening BI Accession Number(s): [id number] cc: Hiram Navarrete D.O.; Physician,Non-Staff M.Lee Patient Name: VERONICA MARY MR#: [id number] : 1980 Exam Date: 05/22/2025 Ordering Doctor: DR HIRAM NAVARRETE . RADIOLOGY REPORT PROCEDURE: MM TOMOSYNTHESIS SCREENING BI COMPARISON: MM TOMOSYNTHESIS SCREENING BI, 05/21/2024. MMTOMOSYNTHESIS SCREENING BI, 05/18/2023. MG MAMM SCREEN 3D SHAHIDA CAD, 05/12/2022. MG MAMM SCREEN 3D SHAHIDA CAD, 05/08/2021. INDICATIONS: Screening Calculator Name NCI Breast Cancer Risk Assessment Tool 5 Year Breast Cancer Risk 1.10% Lifetime Breast Cancer Risk 13.10% Personal Breast Cancer No Personal Ovarian Cancer No Treatments None Family Cancers Uncle-maternal with colon cancer at age 60; Aunt-maternal with breast cancer at age 60; Mother with thyroid cancer at age 64. LOCATION: [facility] BREAST COMPOSITION: There are scattered areas of fibroglandulardensity. FINDINGS: RIGHT BREAST: No significant suspicious finding. LEFT BREAST: No significant suspicious finding. DIAGNOSTIC CATEGORY 1--NEGATIVE. RECOMMENDATIONS: ROUTINE MAMMOGRAM AND CLINICAL EVALUATION IN 12 MONTHS. PLEASE NOTE: A NORMAL MAMMOGRAM DOES NOT EXCLUDE THE POSSIBILITY OFBREAST CANCER. A CLINICALLY SUSPICIOUS PALPABLE LUMP SHOULD BE BIOPSIED. Dictated by: Sahil Nguyen MD on 05/22/2025 at 14:28 Approved by: Sahil Nguyen MD on 05/22/2025 at 14:39 Dictated By: Sahil Nguyen M.D. Signed By:05/22/25 1440 DD/ 1439 TD/TT: Clinical Dental Technician: Authorizing ProviderResult TypeResult StatusCorey Rosalba DOCLINISYNC IMAGINGFinal Result * Pap Smear (08/13/2024 12:00 AM EST)Specimen (Source)Anatomical Location / LateralityCollection Method / VolumeCollection TimeReceived TimeSwabCervical swab / Unknown Narrative Authorizing ProviderResult TypeResult StatusCorey Rosalba DOLAB CYTOLOGY ORDERABLESFinal ResultPerforming OrganizationAddressCity/State/ZIP CodePhone Number EXTERNAL LAB from Last 3 Months or Most Recently Relevant to Health Maintenance Insurance Care Teams Team MemberRelationshipSpecialtyStart DateEnd Daren Juares MD PCP - Ccwoayy57/23/23
[2025-08-19 13:09] LABS: Age Gdln ACOG Testing Note (.); IGP, Aptima HPV, rfx 16/18,45 Note (.)
== END 2025-08-15 14:44 | disposition home or self-care (01) ==
LOC: LAB 14:45
PROVIDERS: Visit Provider Obstetrics & Gynecology
DX: Z01.419 Encounter for gynecological examination (general) (routine) without abnormal findings (principal)
CPT/HCPCS: 87624; 88175